=== PATIENT | female | born 1940 | race Two or more races ===

== ENCOUNTER 2016-12-26 13:55 | Inpatient (IN) | payer OTHER ==
[2016-12-26 14:01] VITALS: BMI 27.1
[2016-12-26 14:44] LABS: BASOPHILS # (AUTO) 0.1 X10^3/uL (0.0-0.1); BASOPHILS % (AUTO) 0.8 % (0.2-1.0); EOSINOPHILS # (AUTO) 0.1 x10^3/uL (0.0-0.2); EOSINOPHILS % (AUTO) 0.8 % (0.9-2.9); HEMATOCRIT 38.1 % (36.0-47.0); HEMOGLOBIN 12.7 g/dL (12.0-16.0); LYMPHOCYTES # (AUTO) 1.1 X10^3/uL (1.3-2.9); LYMPHOCYTES % (AUTO) 9.7 % (21.0-51.0); MEAN CORPUSCULAR HEMOGLOBIN 26.1 pg (27.0-34.0); MEAN CORPUSCULAR HGB CONC 33.3 g/dL (33.0-35.0); MEAN CORPUSCULAR VOLUME 78.6 fL (80.0-100.0); MEAN PLATELET VOLUME 7.6 fL (7.4-11.0); MONOCYTES # (AUTO) 0.5 x10^3/uL (0.3-0.8); MONOCYTES % (AUTO) 4.4 % (0.0-13.0); NEUTROPHILS # (AUTO) 9.6 x10^3/uL (2.2-4.8); NEUTROPHILS % (AUTO) 84.3 % (42.0-75.0); PLATELET COUNT 326 X10^3/uL (150.0-450.0); RED BLOOD COUNT 4.85 X10^6/uL (3.5-5.4); RED CELL DISTRIBUTION WIDTH 17.6 % (11.6-16.5); WHITE BLOOD COUNT 11.4 X10^3/uL (3.6-10.0)
--- NOTE | 2016-12-26 14:52 | RAD ---
HISTORY: Chest pain Study: Chest one view Comparison: November 07, 2015 Findings: The heart is enlarged. No congestive heart failure is noted. The aorta is mildly ectatic. The lungs are mildly hypoinflated. Diffuse chronic interstitial lung changes are present. There is a focal kristy eolar infiltrate in the right upper lobe suspicious for pneumonia. Follow up until clear is recommen ded. IMPRESSION: Right upper lobe infiltrate suggestive of pneumonia Diffuse interstitial lung changes, chronic Cardiomegaly without congestive heart failure Reported By:
[2016-12-26 15:03] LABS: ALANINE AMINOTRANSFERASE 22 Units/L (12-78); ALKALINE PHOSPHATASE 89 Units/L (46-116); ASPARTATE AMINO TRANSFERASE 14 Units/L (15-37); BLOOD UREA NITROGEN 13 mg/dL (7-18); CALCIUM 9.6 mg/dL (8.5-10.1); CARBON DIOXIDE 29.5 mmol/L (21-32); CHLORIDE 102 mmol/L (98-107); COR CA(FOR HYPOALB) 10.4 mg/dL (8.5-10.1); COR NA(FOR HYPERGLY) 139 mmol/L (136-145); CREATININE 0.83 mg/dL (0.55-1.02); GLUCOSE 111 mg/dL (65-99); SODIUM 139 mmol/L (136-145); TOTAL PROTEIN 7.2 g/dL (6.4-8.2); eGFR BLACK RACES > 60 (>60); eGFR NON BLACK RACES > 60 (>60)
--- NOTE | 2016-12-26 15:13 | DR.GENAD ---
HPI - PCP Primary Care Physician: none - Complaint/Symptoms Chief Complaint Doctors Comments: Patient admits to chest pain and coughing for a while; she denies fever or vomiting. Chief Complaint:: pt chest is hurting and back and her eyes are burning - Source History Provided: Patient - Mode of Arrival Mode of Arrival: Ambulatory - Timing Onset of Chief Complaint: 12/25/16 PMH - PMH Past Medical History: Yes Past Medical History: Hypertension Past Surgical History: Yes Surgical History: Bowel Resection, 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 - Family History History of Family Medical Conditions: No - Social History Does patient currently use any type of tobacco product: No Have you used tobacco products in the last 12 months: No Type of Tobacco Use: None Does any household member use tobacco: No Alcohol Use: None Do you use any recreational Drugs:: No Lives With: Family Lives Where: Home - infectious screening In the last 2 months have you had wt loss of >10#?: NO Have you had fever, night sweats or hemotysis?: No Have you traveled outside the country in the last 6 months?: No Isolation: Standard ROS - Review of Systems Constitutional: No Symptoms Reported Eyes: No Symptoms Reported ENTM: No Symptoms Reported Respiratoy: No Symptoms Reported Cardiovascular: No Symptoms Reported Gastrointestinal/Abdominal: No Symptoms Reported Genitourinary: No Symptoms Reported Neurological: No Symptoms Reported Musculoskeletal: No Symptoms Reported Integumentary: No Symptoms Reported Hematologic/Lymphatic: No Symptoms Reported Endocrine: No Symptoms Reported Psychiatric: No Symptoms Reported All Other Systems: Reviewed and Negative PE - Vital Signs Vitals: Temperature 98 F Pulse Rate 100 Respiratory Rate 18 Blood Pressure [Left Arm] 156/91 Blood Pressure [Right Arm] 171/82 Blood Pressure 140/87 O2 Sat by Pulse Oximetry 99 - General Limitations: No Limitations General Appearance: Alert, In No Apparent Distress, Appears Intoxicated - Head Head Exam: Normal Inspection, Atraumatic - Eyes Eye exam: Normal Appearance, PERRL, EOMI - ENT ENT Exam: Normal Exam External Ear Exam: Normal External Inspection TM/Canal Exam: Bilateral Normal Nose Exam: Normal Nose Exam Mouth Exam: Normal Inspection Throat Exam: Normal Inspection - Neck Neck Exam: Normal Inspection - Chest Chest Inspection: Normal Inspection - Respiratory Respiratory Exam: Normal Lung Sounds Bilat Respiratory Exam: Bilateral Clear to Auscultation - Cardiovascular Cardiovascular Exam: Regular Rate, Normal Rhythm - Abdominal Exam Abdominal Exam: Normal Inspection, Normal Bowel Sounds Abdominal Tenderness: negative: RUQ, RLQ, LUQ, LLQ, Epigastrium, Suprapubic, Diffuse, Mild, Moderate, Severe, Other - Extremities Extremities Exam: Normal Inspection - Back Back Exam: Normal Inspection, Full ROM - Neurologic Neurological Exam: Alert, Oriented X3, CN II-XII Intact - Psychiatric Psychiatric Exam: Normal Affect - Skin Skin Exam: Warm, Dry, Intact Course - Reevaluation 1st: Unchanged ROR - Labs Reviewed Result Diagrams: 12/26/16 14:32 12/26/16 14:32 Laboratory: WBC 11.4 X10^3/uL (3.6-10.0) H 12/26/16 14:32 RBC 4.85 X10^6/uL (3.5-5.4) 12/26/16 14:32 Hgb 12.7 g/dL (12.0-16.0) 12/26/16 14:32 Hct 38.1 % (36.0-47.0) 12/26/16 14:32 MCV 78.6 fL (80.0-100.0) L 12/26/16 14:32 MCH 26.1 pg (27.0-34.0) L 12/26/16 14:32 MCHC 33.3 g/dL (33.0-35.0) 12/26/16 14:32 RDW 17.6 % (11.6-16.5) H 12/26/16 14:32 Plt Count 326 X10^3/uL (150.0-450.0) 12/26/16 14:32 MPV 7.6 fL (7.4-11.0) 12/26/16 14:32 Neut % 84.3 % (42.0-75.0) H 12/26/16 14:32 Lymph % 9.7 % (21.0-51.0) L 12/26/16 14:32 [place] % 4.4 % (0.0-13.0) 12/26/16 14:32 Eos % 0.8 % (0.9-2.9) L 12/26/16 14:32 Baso % 0.8 % (0.2-1.0) 12/26/16 14:32 Neut # 9.6 x10^3/uL (2.2-4.8) H 12/26/16 14:32 Lymph # 1.1 X10^3/uL (1.3-2.9) L 12/26/16 14:32 [place] # 0.5 x10^3/uL (0.3-0.8) 12/26/16 14:32 Eos # 0.1 x10^3/uL (0.0-0.2) 12/26/16 14:32 Baso # 0.1 X10^3/uL (0.0-0.1) 12/26/16 14:32 Absolute Nucleated RBC 0.0 /100WBC 12/26/16 14:32 Sodium 139 mmol/L (136-145) 12/26/16 14:32 Corrected Sodium 139 mmol/L (136-145) 12/26/16 14:32 Potassium 3.2 mmol/L (3.5-5.1) L 12/26/16 14:32 Chloride 102 mmol/L (98-107) 12/26/16 14:32 Carbon Dioxide 29.5 mmol/L (21-32) 12/26/16 14:32 BUN 13 mg/dL (7-18) 12/26/16 14:32 Creatinine 0.83 mg/dL (0.55-1.02) 12/26/16 14:32 Est GFR (MDRD) Af Amer > 60 (>60) 12/26/16 14:32 Est GFR (MDRD) Non-Af > 60 (>60) 12/26/16 14:32 Glucose 111 mg/dL (65-99) H 12/26/16 14:32 Calcium 9.6 mg/dL (8.5-10.1) 12/26/16 14:32 Corrected Calcium 10.4 mg/dL (8.5-10.1) H 12/26/16 14:32 Total Bilirubin 0.50 mg/dL (0.2-1.0) 12/26/16 14:32 AST 14 Units/L (15-37) L 12/26/16 14:32 ALT 22 Units/L (12-78) 12/26/16 14:32 Alkaline Phosphatase 89 Units/L (46-116) 12/26/16 14:32 Total Protein 7.2 g/dL (6.4-8.2) 12/26/16 14:32 Albumin 3.0 g/dL (3.4-5.0) L 12/26/16 14:32 Globulin 4.2 g/dL (2.5-4.5) 12/26/16 14:32 Albumin/Globulin Ratio 0.7 Ratio (1.1-2.1) L 12/26/16 14:32 Specimen Type Clean catch urine 12/26/16 16:11 Urine Color Yellow (YELLOW) 12/26/16 16:11 Urine Appearance Hazy (CLEAR) 12/26/16 16:11 Urine pH 7.0 (5.0 - 8.0) 12/26/16 16:11 Ur Specific [place] 1.005 (1.000-1.030) 12/26/16 16:11 Urine Protein Negative (NEGATIVE) 12/26/16 16:11 Urine Glucose (UA) Negative (NEGATIVE) 12/26/16 16:11 Urine Ketones Negative (NEGATIVE) 12/26/16 16:11 Urine Occult Blood 1+ (NEGATIVE) 12/26/16 16:11 Urine Nitrite Negative (NEGATIVE) 12/26/16 16:11 Urine Bilirubin Negative (NEGATIVE) 12/26/16 16:11 Urine Urobilinogen Normal (NORMAL) 12/26/16 16:11 Ur Leukocyte Esterase 1+ (NEGATIVE) 12/26/16 16:11 Urine RBC 0-2 /HPF (NEGATIVE) 12/26/16 16:11 Urine WBC 0-2 /HPF (NEGATIVE) 12/26/16 16:11 Ur Squamous Epith Cells Few /HPF (NEGATIVE) 12/26/16 16:11 Urine Bacteria Trace /HPF (NEGATIVE) 12/26/16 16:11 Ur Culture Indicated? No/not indicated 12/26/16 16:11 - XRAY XRAY Interpreted by: Radiologist (The heart is enlarged. No congestive heart failure is noted. The aorta is mildly ectatic. The lungs are mildly hypoinflated. Diffuse chronic interstitial lung changes are present. There is a focal alveolar infiltrate in the right upper lobe suspicious for pneumonia. Impressions: RUL infiltrate suggestive of pneumonia. 2.Diffuse intersititial lung changes. chronic, 3.Cardiomegaly without congestive heart failure.) - Diagnosis Discharge Problem: Cardiomegaly, Special screening examination for respiratory tuberculosis - Discharge Plan Condition: Stable - Follow ups/Referrals Follow ups/Referrals: NFD,None [Primary Care Provider] - 3 days - Instructions
[2016-12-26] MEDS ORDERED: SALINE 3% 15 ML NEB TX ONE (15:30)
[2016-12-26] MEDS ORDERED: K-LYTE EFFERVESCENT PO ONE (15:33)
[2016-12-26] MEDS ORDERED: POTASSIUM CHLORIDE LIQ 20 MEQ UDC ONE (16:19)
[2016-12-26 16:20] LABS: BILIRUBIN,URINE NEGATIVE (NEGATIVE); BLOOD/HEMOGLOBIN,URINE 1+ (NEGATIVE); GLUCOSE, URINE NEGATIVE (NEGATIVE); KETONES,URINE NEGATIVE (NEGATIVE); LEUKOCYTE ESTERASE ,URINE 1+ (NEGATIVE); NITRITES,URINE NEGATIVE (NEGATIVE); PROTEIN,URINE NEGATIVE (NEGATIVE); UROBILINOGEN,URINE NORMAL (NORMAL)
[2016-12-26] MEDS ORDERED: K-DUR TAB 20 MEQ PO ONE (16:21)
[2016-12-26 16:38] LABS: APPEARANCE,URINE HAZY (CLEAR); BACTERIA,URINE TRACE /HPF (NEGATIVE); COLOR,URINE YELLOW (YELLOW); RBC,URINE 0-2 /HPF (NEGATIVE); SQUAMOUS EPITHELIAL CELL,UR FEW /HPF (NEGATIVE)
[2016-12-26] MEDS ORDERED: SALINE 3% 15 ML NEB TX NEB ONE (16:39)
[2016-12-26] MEDS ORDERED: ZOFRAN INJ 4 MG VIAL IVP PRN (18:18)
[2016-12-26] MEDS ORDERED: CANDIDA ALBICANS SKIN TEST ID ONE (19:00)
[2016-12-26] MEDS ORDERED: NS 1/2 1000 ML IV 1,000 ML IV ONE (20:21)
[2016-12-26] MEDS: NS 1/2 1000 ML IV 1,000 ML IV SCH (20:40)
[2016-12-26] MEDS: ROBITUSSIN DM PO SCH (20:40)
[2016-12-26] MEDS: VIBRAMYCIN 100 MG in NS 100 ML IV + SPIKE MINIBAG* 100 ML IV SCH (20:41)
[2016-12-26] MEDS: DUONEB 0.5 MG/3 MG NEB SCH (20:45)
[2016-12-27] MEDS: DUONEB 0.5 MG/3 MG NEB SCH ×5 (01:24→20:31)
[2016-12-27 04:42] LABS: BASOPHILS # (AUTO) 0.1 X10^3/uL (0.0-0.1); BASOPHILS % (AUTO) 0.7 % (0.2-1.0); EOSINOPHILS # (AUTO) 0.1 x10^3/uL (0.0-0.2); EOSINOPHILS % (AUTO) 0.9 % (0.9-2.9); HEMATOCRIT 33.4 % (36.0-47.0); HEMOGLOBIN 11.2 g/dL (12.0-16.0); LYMPHOCYTES # (AUTO) 1.4 X10^3/uL (1.3-2.9); LYMPHOCYTES % (AUTO) 15.1 % (21.0-51.0); MEAN CORPUSCULAR HEMOGLOBIN 26.3 pg (27.0-34.0); MEAN CORPUSCULAR HGB CONC 33.5 g/dL (33.0-35.0); MEAN CORPUSCULAR VOLUME 78.6 fL (80.0-100.0); MEAN PLATELET VOLUME 7.6 fL (7.4-11.0); MONOCYTES # (AUTO) 0.6 x10^3/uL (0.3-0.8); MONOCYTES % (AUTO) 6.5 % (0.0-13.0); NEUTROPHILS % (AUTO) 76.8 % (42.0-75.0); PLATELET COUNT 346 X10^3/uL (150.0-450.0); RED BLOOD COUNT 4.25 X10^6/uL (3.5-5.4); RED CELL DISTRIBUTION WIDTH 17.5 % (11.6-16.5); WHITE BLOOD COUNT 9.1 X10^3/uL (3.6-10.0)
[2016-12-27 04:53] LABS: ALANINE AMINOTRANSFERASE 18 Units/L (12-78); ALBUMIN 2.5 g/dL (3.4-5.0); ALKALINE PHOSPHATASE 74 Units/L (46-116); ASPARTATE AMINO TRANSFERASE 12 Units/L (15-37); BLOOD UREA NITROGEN 10 mg/dL (7-18); CALCIUM 9.2 mg/dL (8.5-10.1); CARBON DIOXIDE 29.1 mmol/L (21-32); CHLORIDE 104 mmol/L (98-107); COR CA(FOR HYPOALB) 10.4 mg/dL (8.5-10.1); CREATININE 0.86 mg/dL (0.55-1.02); GLUCOSE 107 mg/dL (65-99); SODIUM 139 mmol/L (136-145); TOTAL PROTEIN 6.3 g/dL (6.4-8.2); eGFR BLACK RACES > 60 (>60); eGFR NON BLACK RACES > 60 (>60)
[2016-12-27] MEDS ORDERED: K-LYTE EFFERVESCENT PO PRN (05:12)
[2016-12-27] MEDS ORDERED: K-DUR TAB 20 MEQ PO PRN (05:12)
[2016-12-27] MEDS ORDERED: POTASSIUM CHLORIDE LIQ 20 MEQ UDC PO PRN (05:12)
[2016-12-27] MEDS ORDERED: K-RIDER 10 MEQ/NS 100 ML 10 MEQ/100 ML BAG IV PRN (05:12)
--- NOTE | 2016-12-27 06:31 | RAD ---
HISTORY: Shortness of breath Study: Chest two-view Comparison: December 26, 2016 Findings: The patient is rotated slightly to the left. The heart is enlarged. No congestive heart failure is n oted. The aorta is calcified and mildly ectatic. Diffuse interstitial lung disease is again identifi ed not significantly changed from the prior examination. The previously noted right apical alveolar infiltrate has resolved. No pleural effusions are identified. The bony thorax is unremarkable. IMPRESSION: Cardiomegaly without congestive heart failure Diffuse chronic interstitial lung disease Right upper lobe now free of alveolar infiltrates. Reported By:
[2016-12-27] MEDS: ROBITUSSIN DM PO SCH ×4 (08:53→21:10)
[2016-12-27] MEDS: VIBRAMYCIN 100 MG in NS 100 ML IV + SPIKE MINIBAG* 100 ML IV SCH ×2 (08:53→21:10)
[2016-12-27] MEDS: ROCEPHIN VIAL 1 GM 1 GM in NS 50 ML IV + SPIKE MINIBAG* 50 ML IV SCH (08:54)
[2016-12-27] MEDS ORDERED: FOLIC ACID 800 MCG PO SCH (09:30)
[2016-12-27] MEDS: FOLIC ACID TAB 1 MG PO SCH (09:48)
[2016-12-27] MEDS: NS 1/2 1000 ML IV 1,000 ML IV SCH ×2 (09:48→11:40)
[2016-12-27] MEDS: ZyrTEC TAB 10 MG PO SCH (09:48)
[2016-12-27] MEDS: HYZAAR 50/12.5 MG PO SCH (09:48)
[2016-12-27] MEDS: PREDNISONE TAB 5 MG PO SCH ×3 (10:09→21:10)
[2016-12-27] MEDS: LOVENOX INJ 30 MG SYR SC SCH ×2 (10:09→21:11)
[2016-12-27] MEDS ORDERED: NS 1/2 1000 ML IV 1,000 ML IV ONE (11:26)
--- NOTE | 2016-12-27 11:38 | VAS ---
HISTORY: Extremity pain, swelling, and edema Study: Bilateral lower extremity Doppler venous ultrasound. TECHNIQUE: Multiple carlos scale and color flow Doppler images of the deep venous system were obtaine d of the right and left lower extremity. FINDINGS: The deep venous system of the right and left lower extremities were evaluated from the [place] rose[place] of the common femoral veins through the popliteal veins, bilaterally. Normal color flow and aug mentation can be observed. In addition, normal compression is seen throughout the deep venous syste m. No Scott's cyst is seen. IMPRESSION: 1. Negative examination for DVT. Reported By:
[2016-12-27] MEDS: NORCO 5/325 MG TAB PO PRN ×2 (13:42→21:11)
--- NOTE | 2016-12-27 15:00 | DR.H&P ---
H&P - History & Physical for Day of: H&P Date: 12/26/16 - Chief Complaint Chief Complaint: chest pain and cough - Allergies Allergies/Adverse Reactions: Allergies Allergy/AdvReac Type Severity Reaction Status Date / Time No Known Drug Allergy Allergy Verified 11/07/15 17:34 - History of Present Illness History of Present Illness: Patient presented to the emergency room with complaints of chest pain and coughing. Patient has a history of hypertension. Chest XRay on arrival showed right upper lobe infiltrate suggestive of pneuimonia, diffuse interstitial lung changes that are chronic, and cardiomegaly without CHF. Vital signs 98.0, 109, 18, 98%, 140/87. Labs within normal limits with the exception of WBC 11.4, MCV, MCH 26.1, RDW 17.6, Neut% 84.3, Lymph 9.7, Eos% 0.8, Neut# 9.6, Lymph# 1.1, Potassium 3.2, Glucose 111, AST 14, Albumin 3.0, Albumin/Globulin 0.7. Patient admitted with diagnosis of community acquired pneumonia and started on NS@75ml/hr, Ceftriaxone 1gm IV Daily , Doxycycline 100mg IV Q12hr. - Past Medical History Past Medical History: Hypertension - Past Surgical History Surgical History: Bowel Resection, 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 - Social History Does patient currently use any type of tobacco product: No Have you used tobacco products in the last 12 months: No Type of Tobacco Use: None Does any household member use tobacco: No Alcohol Use: None Drug Use: None - Medications Home Medications: Cetirizine HCl [Zyrtec Allergy] 10 mg PO HS 12/26/16 [History Confirmed 12/26/16 ] Folic Acid 800 mcg PO DAILY 12/26/16 [History Confirmed 12/26/16] Losartan Potassium & Hydrochlo [Losartan Potassium/Hydroc 100-25 mg] 1 tab PO QAM 12/26/16 [History Confirmed 12/26/16] Prednisone [Prednisone Tab 5 mg] 5 mg PO TID 12/26/16 [History Confirmed ] - Review of Systems Constitutional: Weakness Eyes: No Symptoms Reported ENT: No Symptoms Reported Respiratory: Cough Cardiovascular: Chest Pain Gastrointestinal: No Symptoms Reported Genitourinary: No Symptoms Reported Musculoskeletal: No Symptoms Reported Skin: No Symptoms Reported Neurological: No Symptoms Reported - Physical Exam Vital Signs: Vital signs 98.0, 109, 18, 98%, 140/87 Oriented: Normal Eyes: Normal Ear: Normal Nose: Normal Throat: Normal Respiratory: Clear Throughout Cardiovascular: Normal : Normal Auscultation: Bowel Sounds: Normal Palpation: Normal Tenderness: Normal Skin: Normal Musculoskeletal: Normal Psychiatric: Normal Mood Description: Calm, Appropriate Affect: Normal Speech Pattern: Clear, Appropriate - Assessment/Plan (1) Chest pain Qualifiers: Chest pain type: C Ischemic chest pain type: I Status: Acute Plan: continue to monitor (2) Community acquired pneumonia Status: Acute Plan: ceftriaxone 1gm IV Daily, Doxycycline 100mg IV Q12hr
--- NOTE | 2016-12-27 15:01 | PCM.PROG ---
Progress Note - Progress Note for Day of Date: 12/27/16 - Subjective Subjective: Patient states that she is feeling better however, she complains of left leg pain. Chest xray this am shows Cardiomegaly without CHF, diffuse chronic interstitial lung disease, right upper lobe infiltrate now free of alveolar infiltrates. Vital signs 98.6, 87, 22, 97% 140/75. Labs within normal limits with the exception of Hgb 11.2, Hct 33.4, MCV 78.6, MCH 26.3, RDW 17.5, Neut% 76.8, Lymph% 15.1, Neut# 7.0, Potassium 3.3, glucose 107, AST 12, Total Protein 6.3, Albumin 2.5, Albumin/Globulin Ratio 0.7. We are going to order a venous Doppler to rule out DVT and start on lovenox 30mg SQ Q12hr. We will repeat labs in the am. - Past Medical Family Social History Past Med/Fam/Surg Hx: No changes since H&P Allergies: Allergies No Known Drug Allergy Allergy (Verified 11/07/15 17:34) - Review of Systems ROS: No change since H&P - Vital Signs and I&O's Vital Signs: Temperature 99.1 F Pulse Rate [Right Brachial] 91 Pulse Rate 86 Respiratory Rate 20 Blood Pressure [Left Arm] 151/70 Blood Pressure [Right Arm] 140/75 O2 Sat by Pulse Oximetry 96 Intake and Output: Intake & Output 12/25/16 12/26/16 12/27/16 12/28/16 11:59 11:59 11:59 11:59 Intake Total 898 Balance 898 - Physical Exam Oriented: Normal Eyes: Normal Ear: Normal Nose: Normal Throat: Normal Respiratory: Normal Cardiovascular: Normal : Normal Auscultation: Bowel Sounds: Normal Palpation: Normal Tenderness: Normal Skin: Normal Musculoskeletal: Normal Psychiatric: Normal Mood Description: Calm, Appropriate Affect: Normal Speech Pattern: Clear, Appropriate - Laboratory and Diagnostics Result Diagrams: 12/27/16 03:25 12/27/16 07:45 Labs: Laboratory WBC 9.1 X10^3/uL (3.6-10.0) 12/27/16 03:25 RBC 4.25 X10^6/uL (3.5-5.4) 12/27/16 03:25 Hgb 11.2 g/dL (12.0-16.0) L 12/27/16 03:25 Hct 33.4 % (36.0-47.0) L 12/27/16 03:25 MCV 78.6 fL (80.0-100.0) L 12/27/16 03:25 MCH 26.3 pg (27.0-34.0) L 12/27/16 03:25 MCHC 33.5 g/dL (33.0-35.0) 12/27/16 03:25 RDW 17.5 % (11.6-16.5) H 12/27/16 03:25 Plt Count 346 X10^3/uL (150.0-450.0) 12/27/16 03:25 MPV 7.6 fL (7.4-11.0) 12/27/16 03:25 Neut % 76.8 % (42.0-75.0) H 12/27/16 03:25 Lymph % 15.1 % (21.0-51.0) L 12/27/16 03:25 [place] % 6.5 % (0.0-13.0) 12/27/16 03:25 Eos % 0.9 % (0.9-2.9) 12/27/16 03:25 Baso % 0.7 % (0.2-1.0) 12/27/16 03:25 Neut # 7.0 x10^3/uL (2.2-4.8) H 12/27/16 03:25 Lymph # 1.4 X10^3/uL (1.3-2.9) 12/27/16 03:25 [place] # 0.6 x10^3/uL (0.3-0.8) 12/27/16 03:25 Eos # 0.1 x10^3/uL (0.0-0.2) 12/27/16 03:25 Baso # 0.1 X10^3/uL (0.0-0.1) 12/27/16 03:25 Absolute Nucleated RBC 0.0 /100WBC 12/27/16 03:25 Sodium 139 mmol/L (136-145) 12/27/16 03:25 Corrected Sodium TNP 12/27/16 03:25 Potassium 4.3 mmol/L (3.5-5.1) 12/27/16 07:45 Chloride 104 mmol/L (98-107) 12/27/16 03:25 Carbon Dioxide 29.1 mmol/L (21-32) 12/27/16 03:25 BUN 10 mg/dL (7-18) 12/27/16 03:25 Creatinine 0.86 mg/dL (0.55-1.02) 12/27/16 03:25 Est GFR (MDRD) Af Amer > 60 (>60) 12/27/16 03:25 Est GFR (MDRD) Non-Af > 60 (>60) 12/27/16 03:25 Glucose 107 mg/dL (65-99) H 12/27/16 03:25 Calcium 9.2 mg/dL (8.5-10.1) 12/27/16 03:25 Corrected Calcium 10.4 mg/dL (8.5-10.1) H 12/27/16 03:25 Total Bilirubin 0.70 mg/dL (0.2-1.0) 12/27/16 03:25 AST 12 Units/L (15-37) L 12/27/16 03:25 ALT 18 Units/L (12-78) 12/27/16 03:25 Alkaline Phosphatase 74 Units/L (46-116) 12/27/16 03:25 Total Protein 6.3 g/dL (6.4-8.2) L 12/27/16 03:25 Albumin 2.5 g/dL (3.4-5.0) L 12/27/16 03:25 Globulin 3.8 g/dL (2.5-4.5) 12/27/16 03:25 Albumin/Globulin Ratio 0.7 Ratio (1.1-2.1) L 12/27/16 03:25 Specimen Type Clean catch urine 12/26/16 16:11 Urine Color Yellow (YELLOW) 12/26/16 16:11 Urine Appearance Hazy (CLEAR) 12/26/16 16:11 Urine pH 7.0 (5.0 - 8.0) 12/26/16 16:11 Ur Specific [place] 1.005 (1.000-1.030) 12/26/16 16:11 Urine Protein Negative (NEGATIVE) 12/26/16 16:11 Urine Glucose (UA) Negative (NEGATIVE) 12/26/16 16:11 Urine Ketones Negative (NEGATIVE) 12/26/16 16:11 Urine Occult Blood 1+ (NEGATIVE) 12/26/16 16:11 Urine Nitrite Negative (NEGATIVE) 12/26/16 16:11 Urine Bilirubin Negative (NEGATIVE) 12/26/16 16:11 Urine Urobilinogen Normal (NORMAL) 12/26/16 16:11 Ur Leukocyte Esterase 1+ (NEGATIVE) 12/26/16 16:11 Urine RBC 0-2 /HPF (NEGATIVE) 12/26/16 16:11 Urine WBC 0-2 /HPF (NEGATIVE) 12/26/16 16:11 Ur Squamous Epith Cells Few /HPF (NEGATIVE) 12/26/16 16:11 Urine Bacteria Trace /HPF (NEGATIVE) 12/26/16 16:11 Ur Culture Indicated? No/not indicated 12/26/16 16:11 Radiology Reviewed: Yes - Plan (1) Chest pain Status: Acute Qualifiers: Chest pain type: C Ischemic chest pain type: I Plan: continue to monitor (2) Community acquired pneumonia Status: Acute Plan: ceftriaxone 1gm IV Daily, Doxycycline 100mg IV Q12hr (3) Leg pain, left Status: Acute Plan: Venous doppler r/o DVT Lovenox 30mg SQ q12hr
[2016-12-27] MEDS ORDERED: PATIENT'S HOME MEDICATION (Cetirizine Hcl [Zyrtec Allergy] 10 MG) PO SCH (21:00)
[2016-12-28] MEDS: DUONEB 0.5 MG/3 MG NEB SCH ×3 (01:04→08:49)
[2016-12-28] MEDS: PREDNISONE TAB 5 MG PO SCH (05:51)
[2016-12-28 06:15] LABS: BASOPHILS % (AUTO) 0.4 % (0.2-1.0); EOSINOPHILS % (AUTO) 0.2 % (0.9-2.9); HEMATOCRIT 32.5 % (36.0-47.0); HEMOGLOBIN 10.7 g/dL (12.0-16.0); LYMPHOCYTES # (AUTO) 0.5 X10^3/uL (1.3-2.9); LYMPHOCYTES % (AUTO) 6.1 % (21.0-51.0); MEAN CORPUSCULAR HEMOGLOBIN 26.2 pg (27.0-34.0); MEAN CORPUSCULAR VOLUME 79.5 fL (80.0-100.0); MEAN PLATELET VOLUME 7.8 fL (7.4-11.0); MONOCYTES # (AUTO) 0.3 x10^3/uL (0.3-0.8); MONOCYTES % (AUTO) 3.7 % (0.0-13.0); NEUTROPHILS # (AUTO) 7.7 x10^3/uL (2.2-4.8); NEUTROPHILS % (AUTO) 89.6 % (42.0-75.0); PLATELET COUNT 345 X10^3/uL (150.0-450.0); RED CELL DISTRIBUTION WIDTH 17.3 % (11.6-16.5); WHITE BLOOD COUNT 8.5 X10^3/uL (3.6-10.0)
--- NOTE | 2016-12-28 06:27 | RAD ---
HISTORY: Shortness of breath Study: Chest one view Comparison: December 27, 2016 Findings: The heart is enlarged. No congestive heart failure is noted. The aorta is calcified and mildly ectat ic. Diffuse interstitial lung disease is identified not significantly changed from the prior examina tion. No definite alveolar infiltrates are identified. There is subsegmental atelectasis abutting th e minor fissure in the right upper lobe. No pleural effusions are identified. The bony thorax is unr emarkable. IMPRESSION: Cardiomegaly without congestive heart failure Diffuse interstitial lung changes, stable. Subsegmental atelectasis abutting the minor fissure in the right upper lobe Reported By:
[2016-12-28 06:41] LABS: ALANINE AMINOTRANSFERASE 16 Units/L (12-78); ALBUMIN 2.3 g/dL (3.4-5.0); ALKALINE PHOSPHATASE 69 Units/L (46-116); ASPARTATE AMINO TRANSFERASE 12 Units/L (15-37); BLOOD UREA NITROGEN 11 mg/dL (7-18); CALCIUM 8.9 mg/dL (8.5-10.1); CARBON DIOXIDE 24.9 mmol/L (21-32); CHLORIDE 106 mmol/L (98-107); COR CA(FOR HYPOALB) 10.3 mg/dL (8.5-10.1); COR NA(FOR HYPERGLY) 141 mmol/L (136-145); CREATININE 0.64 mg/dL (0.55-1.02); GLUCOSE 128 mg/dL (65-99); SODIUM 140 mmol/L (136-145); eGFR BLACK RACES > 60 (>60); eGFR NON BLACK RACES > 60 (>60)
[2016-12-28 06:50] LABS: ERYTHROCYTE SEDIMENTATION RATE 48 MM/HOUR (0-20)
[2016-12-28] MEDS: NS 1/2 1000 ML IV 1,000 ML IV SCH ×2 (07:19→08:30)
[2016-12-28] MEDS ORDERED: NS 1/2 1000 ML IV 1,000 ML IV ONE (08:14)
[2016-12-28] MEDS: ZyrTEC TAB 10 MG PO SCH (08:30)
[2016-12-28] MEDS: ROBITUSSIN DM PO SCH (08:30)
[2016-12-28] MEDS: FOLIC ACID TAB 1 MG PO SCH (08:30)
[2016-12-28] MEDS: LOVENOX INJ 30 MG SYR SC SCH (08:30)
[2016-12-28] MEDS: VIBRAMYCIN 100 MG in NS 100 ML IV + SPIKE MINIBAG* 100 ML IV SCH (08:30)
[2016-12-28] MEDS: ROCEPHIN VIAL 1 GM 1 GM in NS 50 ML IV + SPIKE MINIBAG* 50 ML IV SCH (08:30)
[2016-12-28] MEDS: HYZAAR 50/12.5 MG PO SCH (08:30)
[2016-12-28] MEDS ORDERED: HYDROCHLO PO SCH (09:00)
[2016-12-28] MEDS ORDERED: [UNRECOGNIZED DRUG - OTHER] PO SCH (09:00)
[2016-12-28] MEDS ORDERED: LOSARTAN POTASSIUM PO SCH (09:00)
[2016-12-28 09:23] VITALS: BP 131/69
== END 2016-12-28 09:55 | disposition home or self-care (01) | DRG 195 ==
LOC: ER 14:16 → MED/SURG 18:08
PROVIDERS: ADMIT Obstetrics & Gynecology Obstetrics; ATTEND Internal Medicine
DX: J18.8 Other pneumonia, unspecified organism (principal); R07.89 Other chest pain; I10 Essential (primary) hypertension; I51.7 Cardiomegaly; M79.605 Pain in left leg
CPT/HCPCS: 36415; 71010; 71020; 80053; 81001; 84132; 85025; 85652; 86140; 87040; 93005; 93970; 94640; 96365; 99284; A4222; J0696; J1650; J3490; J7506; J7620

== ENCOUNTER → 2017-02-06 | Outpatient (CLI) | payer OTHER ==
[2017-02-06 10:54] LABS: ALANINE AMINOTRANSFERASE 19 Units/L (12-78); ALBUMIN 3.1 g/dL (3.4-5.0); ALKALINE PHOSPHATASE 82 Units/L (46-116); ASPARTATE AMINO TRANSFERASE 13 Units/L (15-37); BLOOD UREA NITROGEN 16 mg/dL (7-18); CALCIUM 9.6 mg/dL (8.5-10.1); CARBON DIOXIDE 30.3 mmol/L (21-32); CHLORIDE 102 mmol/L (98-107); COR CA(FOR HYPOALB) 10.3 mg/dL (8.5-10.1); CREATININE 0.87 mg/dL (0.55-1.02); GLUCOSE 94 mg/dL (65-99); SODIUM 140 mmol/L (136-145); TOTAL PROTEIN 7.4 g/dL (6.4-8.2); eGFR BLACK RACES > 60 (>60); eGFR NON BLACK RACES > 60 (>60)
== END ==
LOC: LAB 09:57
PROVIDERS: ATTEND Internal Medicine Rheumatology
DX: M06.89 Other specified rheumatoid arthritis, multiple sites (principal); M70.51 Other bursitis of knee, right knee; M17.12 Unilateral primary osteoarthritis, left knee; Z79.899 Other long term (current) drug therapy
CPT/HCPCS: 36415; 80053; 85652; 86140

== ENCOUNTER 2017-02-27 09:23 | Inpatient (IN) | payer OTHER ==
[2017-02-27 09:30] VITALS: BMI 26.5
--- NOTE | 2017-02-27 09:39 | DR.GENAD ---
HPI - PCP Primary Care Physician: NFD - Complaint/Symptoms Chief Complaint:: PT C/O CHEST PAIN AND BACK PAIN. PT STATES SHE STARTED WITH C/ C/C SATURDAY AND SHE IS JUST GETTING WORSE - Nurses notes reviewed Nurses Notes Review: Yes - Source History Provided: Patient - Mode of Arrival Mode of Arrival: Ambulatory - Timing Onset of Chief Complaint: 02/22/17 Came on: Suddenly - Duration Duration: Constant Duration: Days - Severity Severity: Moderate PMH - PMH Past Medical History: Yes Past Medical History: Hypertension Past Surgical History: Yes Surgical History: Bowel Resection, 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 - Family History History of Family Medical Conditions: No - Social History Type of Tobacco Use: None Does any household member use tobacco: No Alcohol Use: None Do you use any recreational Drugs:: No Lives With: Alone Lives Where: Home - infectious screening In the last 2 months have you had wt loss of >10#?: NO Have you had fever, night sweats or hemotysis?: No Have you traveled outside the country in the last 6 months?: No Isolation: Standard ROS - Review of Systems Constitutional: No Symptoms Reported, Weakness, Fatigue. negative: Chills, Diaphoresis, Fever Eyes: No Symptoms Reported. negative: Eye Pain, Discharge ENTM: Nose Discharge, Nose Congestion. negative: Ear Pain, Throat Pain (POST NASAL DRIP PRESENT.) Respiratoy: Productive Cough, Short of Breath, Wheezing, Hemoptysis Cardiovascular: Chest Pain Gastrointestinal/Abdominal: No Symptoms Reported Genitourinary: No Symptoms Reported Neurological: Headache, Weakness Musculoskeletal: Muscle Pain Integumentary: No Symptoms Reported Hematologic/Lymphatic: No Symptoms Reported Endocrine: No Symptoms Reported All Other Systems: Reviewed and Negative PE - Vital Signs Vitals: Temperature 98.9 F Pulse Rate 88 Respiratory Rate 20 Blood Pressure [Left Arm] 151/70 Blood Pressure [Right Arm] 131/69 Blood Pressure 155/85 O2 Sat by Pulse Oximetry 95 - General Limitations: No Limitations General Appearance: Alert - Head Head Exam: Normal Inspection - Eyes Eye exam: Normal Appearance - ENT ENT Exam: Normal External Ear Exam External Ear Exam: Normal External Inspection TM/Canal Exam: Bilateral Bulging Nose Exam: Normal Nose Exam Mouth Exam: Normal Inspection Throat Exam: Normal Inspection - Neck Neck Exam: Trachea Midline - Chest Chest Inspection: Symmetric Chest Wall Rise - Respiratory Respiratory Exam: Chest Wall Tenderness, Respiratory Distress Respiratory Exam: Bilateral Rhonchi, Upper Rhonchi, Lower Rhonchi - Cardiovascular Cardiovascular Exam: Regular Rate, Normal Rhythm, Normal Heart Sounds - Abdominal Exam Abdominal Exam: Normal Bowel Sounds, Soft. negative: Tenderness - Extremities Extremities Exam: Normal Inspection - Back Back Exam: Normal Inspection - Neurologic Neurological Exam: Alert, Oriented X3 - Skin Skin Exam: Normal Color MDM - Differential Diagnosis Differential Diagnosis: CHEST PAIN, PNEUMONIA, CHF, ND Course - Treatment Treatment: SEE ORDERS. - Education/Counseling Education/Counseling: Patient, Education Educated On: Diagnosis ROR - Labs Reviewed Result Diagrams: 03/04/17 03:15 03/04/17 03:15 Laboratory: 02/27/17 10:48 Sputum - Expectorated Sputum - Final WBC 8.9 X10^3/uL (3.6-10.0) 02/27/17 10:22 RBC 4.78 X10^6/uL (3.5-5.4) 02/27/17 10:22 Hgb 12.5 g/dL (12.0-16.0) 02/27/17 10:22 Hct 37.4 % (36.0-47.0) 02/27/17 10:22 MCV 78.3 fL (80.0-100.0) L 02/27/17 10:22 MCH 26.2 pg (27.0-34.0) L 02/27/17 10:22 MCHC 33.4 g/dL (33.0-35.0) 02/27/17 10:22 RDW 15.9 % (11.6-16.5) 02/27/17 10:22 Plt Count 374 X10^3/uL (150.0-450.0) 02/27/17 10:22 MPV 7.6 fL (7.4-11.0) 02/27/17 10:22 Neut % 62.0 % (42.0-75.0) 02/27/17 10:22 Lymph % 25.9 % (21.0-51.0) 02/27/17 10:22 [place] % 9.8 % (0.0-13.0) 02/27/17 10:22 Eos % 1.1 % (0.9-2.9) 02/27/17 10:22 Baso % 1.2 % (0.2-1.0) H 02/27/17 10:22 Neut # 5.5 x10^3/uL (2.2-4.8) H 02/27/17 10:22 Lymph # 2.3 X10^3/uL (1.3-2.9) 02/27/17 10:22 [place] # 0.9 x10^3/uL (0.3-0.8) H 02/27/17 10:22 Eos # 0.1 x10^3/uL (0.0-0.2) 02/27/17 10:22 Baso # 0.1 X10^3/uL (0.0-0.1) 02/27/17 10:22 Absolute Nucleated RBC 0.0 /100WBC 02/27/17 10:22 Sodium 139 mmol/L (136-145) 02/27/17 10:22 Corrected Sodium TNP 02/27/17 10:22 Potassium 2.6 mmol/L (3.5-5.1) L* 02/27/17 10:22 Chloride 102 mmol/L (98-107) 02/27/17 10:22 Carbon Dioxide 29.6 mmol/L (21-32) 02/27/17 10:22 BUN 15 mg/dL (7-18) 02/27/17 10:22 Creatinine 0.77 mg/dL (0.55-1.02) 02/27/17 10:22 Est GFR (MDRD) Af Amer > 60 (>60) 02/27/17 10:22 Est GFR (MDRD) Non-Af > 60 (>60) 02/27/17 10:22 Glucose 92 mg/dL (65-99) 02/27/17 10:22 Calcium 9.1 mg/dL (8.5-10.1) 02/27/17 10:22 Corrected Calcium 10.0 mg/dL (8.5-10.1) 02/27/17 10:22 Total Bilirubin 0.40 mg/dL (0.2-1.0) 02/27/17 10:22 AST 12 Units/L (15-37) L 02/27/17 10:22 ALT 17 Units/L (12-78) 02/27/17 10:22 Alkaline Phosphatase 78 Units/L (46-116) 02/27/17 10:22 Creatine Kinase 71 Units/L (26-192) 02/27/17 10:22 CK-MB (CK-2) < 1.0 ng/mL (0-4.0) 02/27/17 10:22 CK/CKMB % Calc 1.4 % (<4) 02/27/17 10:22 Troponin I 0.02 ng/mL (0-1.5) 02/27/17 10:22 Total Protein 7.4 g/dL (6.4-8.2) 02/27/17 10:22 Albumin 2.9 g/dL (3.4-5.0) L 02/27/17 10:22 Globulin 4.5 g/dL (2.5-4.5) 02/27/17 10:22 Albumin/Globulin Ratio 0.6 Ratio (1.1-2.1) L 02/27/17 10:22 - Diagnosis Discharge Problem: Pneumonia of both lower lobes Qualifiers: Pneumonia type: due to unspecified organism Qualified Code(s): J18.9 - Pneumonia, unspecified organism Chest pain Qualifiers: Chest pain type: unspecified Qualified Code(s): R07.9 - Chest pain, unspecified - Discharge Plan Disposition: ADMITTED INPATIENT Condition: Stable - Follow ups/Referrals - Instructions
--- NOTE | 2017-02-27 10:22 | RAD ---
HISTORY: Pain Study: portable chest Comparison: 12/28/2016 Findings: The heart is mildly enlarged but unchanged. The pulmonary vessels are slightly prominent centrally . There are hazy bibasilar and linear densities which are more prominent . No obvious effusion is see n. The bones are intact. IMPRESSION: Stable mild cardiomegaly with mild prominence of the central pulmonary vessels which is less promine nt and may represent pulmonary artery hypertension or venous congestion . Hypoinflation with questionable crowded vascular markings or possible early bibasilar atelectasis or infiltrates. Reported By:
[2017-02-27 10:40] LABS: BASOPHILS # (AUTO) 0.1 X10^3/uL (0.0-0.1); BASOPHILS % (AUTO) 1.2 % (0.2-1.0); EOSINOPHILS # (AUTO) 0.1 x10^3/uL (0.0-0.2); EOSINOPHILS % (AUTO) 1.1 % (0.9-2.9); HEMATOCRIT 37.4 % (36.0-47.0); HEMOGLOBIN 12.5 g/dL (12.0-16.0); LYMPHOCYTES # (AUTO) 2.3 X10^3/uL (1.3-2.9); LYMPHOCYTES % (AUTO) 25.9 % (21.0-51.0); MEAN CORPUSCULAR HEMOGLOBIN 26.2 pg (27.0-34.0); MEAN CORPUSCULAR HGB CONC 33.4 g/dL (33.0-35.0); MEAN CORPUSCULAR VOLUME 78.3 fL (80.0-100.0); MEAN PLATELET VOLUME 7.6 fL (7.4-11.0); MONOCYTES # (AUTO) 0.9 x10^3/uL (0.3-0.8); MONOCYTES % (AUTO) 9.8 % (0.0-13.0); NEUTROPHILS # (AUTO) 5.5 x10^3/uL (2.2-4.8); PLATELET COUNT 374 X10^3/uL (150.0-450.0); RED BLOOD COUNT 4.78 X10^6/uL (3.5-5.4); RED CELL DISTRIBUTION WIDTH 15.9 % (11.6-16.5); WHITE BLOOD COUNT 8.9 X10^3/uL (3.6-10.0)
[2017-02-27 11:03] LABS: ALANINE AMINOTRANSFERASE 17 Units/L (12-78); ALBUMIN 2.9 g/dL (3.4-5.0); ALKALINE PHOSPHATASE 78 Units/L (46-116); ASPARTATE AMINO TRANSFERASE 12 Units/L (15-37); BLOOD UREA NITROGEN 15 mg/dL (7-18); CALCIUM 9.1 mg/dL (8.5-10.1); CARBON DIOXIDE 29.6 mmol/L (21-32); CHLORIDE 102 mmol/L (98-107); CKMB % 1.4 % (<4); CREATINE KINASE 71 Units/L (26-192); CREATINE KINASE MB < 1.0 ng/mL (0-4.0); CREATININE 0.77 mg/dL (0.55-1.02); GLUCOSE 92 mg/dL (65-99); SODIUM 139 mmol/L (136-145); TOTAL PROTEIN 7.4 g/dL (6.4-8.2); TROPONIN I 0.02 ng/mL (0-1.5); eGFR BLACK RACES > 60 (>60); eGFR NON BLACK RACES > 60 (>60)
[2017-02-27] MEDS ORDERED: POTASSIUM CHLORIDE LIQ 20 MEQ UDC PO ONE (12:39)
[2017-02-27] MEDS ORDERED: POTASSIUM CHLORIDE LIQ 20 MEQ UDC ONE (12:45)
[2017-02-27] MEDS ORDERED: ROCEPHIN VIAL 1 GM 1 GM in NS 50 ML IV + SPIKE MINIBAG* 50 ML IV ONE (12:58)
[2017-02-27] MEDS ORDERED: TUSSIONEX PENNKINETIC SUSP PO PRN (13:34)
[2017-02-27] MEDS ORDERED: NS 1/2 1000 ML IV 1,000 ML IV ONE (13:49)
[2017-02-27] MEDS: LEVAQUIN PREMIX IV 750 MG 750 MG/150 ML BAG IV SCH (13:57)
[2017-02-27] MEDS: NS 1/2 1000 ML IV 1,000 ML IV SCH (13:57)
[2017-02-27] MEDS: DUONEB 0.5 MG/3 MG NEB SCH ×2 (16:20→20:28)
[2017-02-27 16:26] LABS: CKMB % 1.4 % (<4); CREATINE KINASE 71 Units/L (26-192); CREATINE KINASE MB < 1.0 ng/mL (0-4.0); TROPONIN I 0.03 ng/mL (0-1.5)
[2017-02-27] MEDS: ROBITUSSIN DM PO SCH ×2 (17:43→20:53)
[2017-02-27] MEDS: FORTAZ or TAZICEF INJ 1 GM in NS 50 ML IV + SPIKE MINIBAG* 50 ML IV SCH (22:32)
[2017-02-27 23:57] LABS: CKMB % 1.8 % (<4); CREATINE KINASE 57 Units/L (26-192); CREATINE KINASE MB < 1.0 ng/mL (0-4.0); TROPONIN I 0.02 ng/mL (0-1.5)
[2017-02-28] MEDS: DUONEB 0.5 MG/3 MG NEB SCH ×6 (01:45→20:21)
[2017-02-28] MEDS ORDERED: NS 1/2 1000 ML IV 1,000 ML IV ONE (05:20)
[2017-02-28] MEDS: FORTAZ or TAZICEF INJ 1 GM in NS 50 ML IV + SPIKE MINIBAG* 50 ML IV SCH ×3 (05:29→22:12)
[2017-02-28] MEDS: NS 1/2 1000 ML IV 1,000 ML IV SCH ×2 (05:29→20:47)
[2017-02-28 06:16] LABS: BASOPHILS # (AUTO) 0.1 X10^3/uL (0.0-0.1); BASOPHILS % (AUTO) 0.8 % (0.2-1.0); EOSINOPHILS # (AUTO) 0.2 x10^3/uL (0.0-0.2); EOSINOPHILS % (AUTO) 1.8 % (0.9-2.9); HEMATOCRIT 33.5 % (36.0-47.0); HEMOGLOBIN 11.4 g/dL (12.0-16.0); LYMPHOCYTES # (AUTO) 2.1 X10^3/uL (1.3-2.9); LYMPHOCYTES % (AUTO) 23.8 % (21.0-51.0); MEAN CORPUSCULAR HEMOGLOBIN 26.3 pg (27.0-34.0); MEAN CORPUSCULAR HGB CONC 33.9 g/dL (33.0-35.0); MEAN CORPUSCULAR VOLUME 77.6 fL (80.0-100.0); MEAN PLATELET VOLUME 7.9 fL (7.4-11.0); MONOCYTES # (AUTO) 0.7 x10^3/uL (0.3-0.8); MONOCYTES % (AUTO) 7.7 % (0.0-13.0); NEUTROPHILS # (AUTO) 5.9 x10^3/uL (2.2-4.8); NEUTROPHILS % (AUTO) 65.9 % (42.0-75.0); PLATELET COUNT 338 X10^3/uL (150.0-450.0); RED BLOOD COUNT 4.32 X10^6/uL (3.5-5.4); RED CELL DISTRIBUTION WIDTH 15.8 % (11.6-16.5)
[2017-02-28 06:23] LABS: ALANINE AMINOTRANSFERASE 15 Units/L (12-78); ALBUMIN 2.4 g/dL (3.4-5.0); ALKALINE PHOSPHATASE 70 Units/L (46-116); ASPARTATE AMINO TRANSFERASE 11 Units/L (15-37); BLOOD UREA NITROGEN 10 mg/dL (7-18); CALCIUM 8.4 mg/dL (8.5-10.1); CARBON DIOXIDE 27.4 mmol/L (21-32); CHLORIDE 105 mmol/L (98-107); COR CA(FOR HYPOALB) 9.7 mg/dL (8.5-10.1); CREATININE 0.82 mg/dL (0.55-1.02); GLUCOSE 85 mg/dL (65-99); MAGNESIUM 1.6 mg/dL (1.7-2.9); SODIUM 141 mmol/L (136-145); TOTAL PROTEIN 6.3 g/dL (6.4-8.2); eGFR BLACK RACES > 60 (>60); eGFR NON BLACK RACES > 60 (>60)
[2017-02-28] MEDS ORDERED: POTASSIUM CHLORIDE LIQ 20 MEQ UDC PO PRN (06:34)
[2017-02-28] MEDS ORDERED: K-LYTE EFFERVESCENT PO PRN (06:34)
[2017-02-28] MEDS ORDERED: K-RIDER 10 MEQ/NS 100 ML 10 MEQ/100 ML BAG IV PRN (06:34)
--- NOTE | 2017-02-28 08:31 | RAD ---
HISTORY: Cough Study: Chest one view Comparison: February 27, 2017 Findings: The heart remains enlarged. The aorta is ectatic. No definite congestive heart failure is noted. The re is subsegmental atelectasis in the right mid lung. Interstitial lung changes are present, stable. No definite pleural effusions are identified. IMPRESSION: Cardiomegaly without congestive heart failure Interstitial lung changes Subsegmental atelectasis right mid lung Reported By:
[2017-02-28] MEDS ORDERED: ROCEPHIN VIAL 1 GM 1 GM in NS 50 ML IV + SPIKE MINIBAG* 50 ML IV SCH (09:00)
[2017-02-28] MEDS: K-DUR TAB 20 MEQ PO PRN ×2 (09:33→20:45)
[2017-02-28] MEDS: ROBITUSSIN DM PO SCH ×4 (09:34→20:45)
[2017-02-28] MEDS ORDERED: MAGNESIUM SULFATE 1 GM/100 mL PREMIX 1 GM/100 ML BAG IV ONE (10:54)
[2017-02-28] MEDS: LEVAQUIN PREMIX IV 750 MG 750 MG/150 ML BAG IV SCH (11:27)
--- NOTE | 2017-02-28 11:42 | DR.H&P ---
H&P - History & Physical for Day of: H&P Date: 02/27/17 - Chief Complaint Chief Complaint: BILATERAL LOWER LOBE PNEUMONIA, CHEST PAIN - Allergies Allergies/Adverse Reactions: Allergies Allergy/AdvReac Type Severity Reaction Status Date / Time No Known Drug Allergies Allergy Verified 02/27/17 10:50 - History of Present Illness History of Present Illness: IS A 76 YEAR OLD FEMALE WHO PRESENTED TO THE ER WITH COMPLAINTS OF COUGH, COLD, CONGESTION, AND CHEST PAIN, AND UPPER BACK PAIN. PATIENT REPORTED THAT SYMPTOMS BEGAN SATURDAY AND HAVE PROGRESSIVLY GOTEN WORSE. SHE REPORTED COUGHING UP BLOOD AND SHORTNESS OF BREATH. LUNGS WERE NOTED WITH WHEEZING BILATERALY ON AUSCULTATION. ON ARRIVAL TO ER, VITALS WERE 98.9, 88, 20, 95%, 155/85. CBC WNL. CMP WNL EXCEPT POTASSIUM 2.6, AST 12, ALBUMIN 2.9. CARDIAC ENZYMES WNL. EKG REPORTS SINUS RHYTHM WITH RATE OF 82, RIGHT BBB, LEFT VENTRICULAR HYPERTROPHY. CHEST XRAY REPORTED STABLE CARDIOMEGALY WITH PROMINENCY OF CENTRAL PULMONARY VESSELS THAT MAY REPRESENT PULMONARY ARTERY HTN OR VENOUS CONGESTION, ALSO, HYPOINFLATION WITH QUESTIONABLE CROWDED VASCULAR MARKINGS OR POSSIBLE EARLY BIBASILAR ATELECTASIS OR INFILTRATES. BLOOD CULTURES AND SPUTUM CULTURE PENDING. SHE WAS GIVEN ROCEPHIN 1GM IV AND POTASSIUM 40MEQ PO IN ER. POTASSIUM INCREASED TO 3.3. WE ADMITTED PATIENT FOR FURTHER TREATMENT AND EVALUATION. WE STARTED HER ON THE PNEUMONIA PROTOCOL, ON LEVAQUIN AND FORTAZ IV. SHE WAS ALSO STARTED ON POTASSIUM PROTOCOL. WE PLANNED TO RECHECK LABS AND FOLLOW UP WITH PATIENT IN AM. - Past Medical History Past Medical History: Arthritis, Hypertension Additional Medical History: CATARACTS, PNEUMONIA, COLITIS, DIVERTICULOSIS - Past Surgical History Surgical History: Bowel Resection, 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 Additional Surgical History: COLOSTOMY/REVERSAL - Social History Does patient currently use any type of tobacco product: No Have you used tobacco products in the last 12 months: No Type of Tobacco Use: None Does any household member use tobacco: No Alcohol Use: None Drug Use: None - Review of Systems Constitutional: No Symptoms Reported. denies: See HPI, Fever, Chills, Sweats, Weakness, Malaise, Other Eyes: No Symptoms Reported. denies: See HPI, Pain, Vision Change, Conjunctivae Inflammation, Eyelid Inflammation, Redness, Other ENT: See HPI, Nose Discharge, Nose Congestion. denies: No Symptoms Reported, Ear Pain, Ear Discharge, Nose Pain, Mouth Pain, Mouth Swelling, Throat Pain, Throat Swelling, Other Respiratory: See HPI, Cough, Shortness of Breath, Wheezing. denies: No Symptoms Reported, Dry, Hemoptysis, SOB with Excertion, Pleuritic Pain, Sputum, Other Cardiovascular: Chest Pain. denies: No Symptoms Reported, See HPI, Palpitations , Orthopnea, Paroxysmal Noc. Dyspnea, Edema, Light Headedness, Other Gastrointestinal: No Symptoms Reported. denies: See HPI, Nausea, Vomiting, Abdominal Pain, Diarrhea, Constipation, Melena, Hematochezia, Other Genitourinary: No Symptoms Reported. denies: See HPI, Dysuria, Frequency, Incontinence, Hematuria, Retention, Other Musculoskeletal: No Symptoms Reported. denies: See HPI, Shoulder Pain, Arm Pain , Back Pain, Hand Pain, Leg Pain, Foot Pain, Neck Pain, Other Skin: No Symptoms Reported. denies: See HPI, Rash, Lesions, Jaundice, Bruising , Wound, Ecchymosis, Other Neurological: No Symptoms Reported. denies: See HPI, Weakness, Numbness, Incoordination, Change in Speech, Confusion, Seizures, Other - Physical Exam Vital Signs: Temperature 98.0 F Pulse Rate [Left Brachial] 77 Pulse Rate 96 Respiratory Rate 21 Blood Pressure [Left Arm] 138/8 O2 Sat by Pulse Oximetry 94 Oriented: Normal. negative: Time, Person, Place, Not Oriented, Unable to test, Other Eyes: Normal. negative: Blurred Vision, Diplopia, Discharge, Pain, Redness, Photophobia, Other Ear: Normal. negative: Right, Left, Swelling, Ecchymosis, Hemotypanum, Abrasion , Laceration Nose: Discharge. negative: Normal, Injected, Blood, Other Throat: Normal. negative: Tonsillar Hypertrophy, Red, Exudate, Dry, Other Respiratory: Wheezes Throughout. negative: Clear Throughout, Diminished Throughout, Rhonchi Throughout, Rales Throughout, RUL Clear, RML Clear, RLL Clear, TOSHIA Clear, LML Clear, LLL Clear, RUL Diminished, RML Diminished, RLL Diminished, TOSHIA Diminished, LML Diminished, LLL Diminished, RUL Absent, RML Absent, RLL Absent, TOSHIA Absent, LML Absent, LLL Absent, RUL Rhonchi, RML Rhonchi , RLL Rhonchi, TOSHIA Rhonchi, LML Rhonchi, LLL Rhonchi, RUL Insp. Wheeze, RML Insp. Wheeze, RLL Insp. Wheeze, TOSHIA Insp.Wheeze, LML Insp.Wheeze, LLL Insp.Wheeze, RUL Exp. Wheeze, RML Exp. Wheeze, RLL Exp. Wheeze, TOSHIA Exp. Wheeze , LML Exp. Wheeze, LLL Exp. Wheeze, RUL Rales, RML Rales, RLL Rales, TOSHIA Rales, LML Rales, LLL Rales, RUL Rub, RML Rub, RLL Rub, TOSHIA Rub, LML Rub, LLL Rub, RUL Squeak, RML Squeak, RLL Squeak, TOSHIA Squeak, LML Squeak, LLL Squeak Cardiovascular: Normal : Normal. negative: Dysuria, Hematuria, Frequency, Discharge, Testicular Pain , Bleeding, , Other Auscultation: Bowel Sounds: Normal. negative: Bruit, Absent, Increased, Decreased, High Pitched, Other Palpation: Normal. negative: Spleen Enlarged, Liver Enlarged, Mass Pulsatile, Other Tenderness: Normal. negative: Diffuse, RUQ, RLQ, LUQ, LLQ, Epigastric, Periumbilical, Suprapubic, Mild, Moderate, Severe, Rebound, Guarding, Rigidity, Other Skin: Normal. negative: Decreased Turgur, Rash, Papular, Macular, Maculopapular , Vesicular, Pustular, Petechial, Red, Tender, Hot, Diaphoresis, Wound, Bruising , Ecchymosis, Other Musculoskeletal: Normal. negative: Right, Left, Shoulder, Clavicle, Arm, Elbow , Forearm, Wrist, Hand, Hip, Thigh, Knee, Leg, Ankle, Foot, Back:Thoracic, Back: Lumbar, Back:Midline, Back:Paraspinous, Pelvis, Swelling, Tender, Deformity, Pulse Deficit, Motor Deficit, Sensory Deficit, Instability, Crepitance Psychiatric: Normal. negative: Anxiety, Depression, Agitation, Other Mood Description: Calm. negative: Angry, Apathetic, Depressed, Fearful, Flat, Happy, Hostile, Sad, Suspicious, Withdrawn, Anxious, Appropriate, Labile Affect: Normal. negative: Angry, Anxious, Depressed, Flat, Hysterical, Quiet, Violent Speech Pattern: Clear. negative: Appropriate, Unclear, Inappropriate, Delayed, Slurred, Excessive, Aphasic, Artificially Ventilated - Assessment/Plan (1) Community acquired pneumonia Qualifiers: Laterality: left Lung location: lower lobe of lung Qualified Code(s): J18.1 - Lobar pneumonia, unspecified organism Status: Acute Plan: PNEUMONIA PROTOCOL, LEVAQUIN IV, FORTAZ IV, DUONEBS, SUPPLEMENTAL OXYGEN, CONTINUE TO MONITOR LABS AND PATIENT. (2) Chest pain Qualifiers: Chest pain type: unspecified Ischemic chest pain type: I Qualified Code(s ): R07.9 - Chest pain, unspecified Status: Acute Plan: SERIAL CARDIAC ENZYMES AND EKG, CONTINUE TO MONITOR (3) Hypokalemia Status: Acute Plan: POTASSIUM PROTOCOL, CONTINUE TO MONITOR
[2017-02-28] MEDS ORDERED: FOLIC ACID 800 MCG PO SCH (12:45)
[2017-02-28] MEDS ORDERED: PATIENT'S HOME MEDICATION (Losartan/Hydrochlorothiazide [Losartan-Hctz 100-25 Mg Tab] 1 TA PO SCH (12:45)
--- NOTE | 2017-02-28 16:53 | PCM.PROG ---
Progress Note - Progress Note for Day of Date: 02/28/17 - Subjective Subjective: IS ALERT AND ORIENTED, AMBULATING IN ROOM ON MORNING ROUNDS. SHE COMPLAINS OF CHEST PAIN, SHORTNESS OF BREATH, AND PRODUCTIVE COUGH ON ROUNDS. SHE IS NOTED WITH WHEEZING BILATERALLY ON AUSCULTATION. VITALS THIS AM ARE 98.6-77-21-96%-138/58. CBC REPORTED WBC 9.0, HGB 11.4, HCT 33.5. CMP REPORTED SODIUM 141, POTASSIUM 3.0, BUN 10, CREATININE 0.82, CALCIUM 8.4, AST 11 , ALT 15, TOTAL PROTEIN 6.3, ALBUMIN 2.4, MAGNESIUM 1.6. BNP 32.4. CHEST XRAY REPORTS CARDIOMEGALY WITHOUT CHF, INTERSTITUAL LUNG CHANGES, AND SUBSEGMENTAL ATELECTASIS RIGHT MID LUNG. SPUTUM CULTURES ARE PENDING. WE WILL ORDER AN ECHO, START MAGNESIUM 1 GM IV X 1 DOSE, AND REVIEW HOME MEDICATIONS. WE WILL RECHECK LABS AND FOLLOW UP WITH PATIENT IN AM. - Past Medical Family Social History Past Med/Fam/Surg Hx: No changes since H&P Allergies: Allergies No Known Drug Allergies Allergy (Verified 02/27/17 10:50) - Review of Systems ROS: No change since H&P - Vital Signs and I&O's Vital Signs: Temperature 98.9 F Pulse Rate [Left Brachial] 88 Pulse Rate 102 Respiratory Rate 20 Blood Pressure [Left Arm] 142/81 O2 Sat by Pulse Oximetry 94 Intake and Output: Intake & Output 02/26/17 02/27/17 02/28/17 03/01/17 11:59 11:59 11:59 11:59 Intake Total 1300 Output Total 800 Balance 500 - Physical Exam Oriented: Normal. negative: Time, Person, Place, Not Oriented, Unable to test, Other Eyes: Normal. negative: Blurred Vision, Diplopia, Discharge, Pain, Redness, Photophobia, Other Ear: Normal. negative: Right, Left, Swelling, Ecchymosis, Hemotypanum, Abrasion , Laceration Nose: Discharge. negative: Normal, Injected, Blood, Other Throat: Normal. negative: Tonsillar Hypertrophy, Red, Exudate, Dry, Other Respiratory: Right, Left, Wheezes Cardiovascular: Normal : Normal. negative: Dysuria, Hematuria, Frequency, Discharge, Testicular Pain , Bleeding, , Other Auscultation: Bowel Sounds: Normal. negative: Bruit, Absent, Increased, Decreased, High Pitched, Other Palpation: Normal Tenderness: Normal. negative: Diffuse, RUQ, RLQ, LUQ, LLQ, Epigastric, Periumbilical, Suprapubic, Mild, Moderate, Severe, Rebound, Guarding, Rigidity, Other Skin: Normal. negative: Decreased Turgur, Rash, Papular, Macular, Maculopapular , Vesicular, Pustular, Petechial, Red, Tender, Hot, Diaphoresis, Wound, Bruising , Ecchymosis, Other Musculoskeletal: Normal. negative: Right, Left, Shoulder, Clavicle, Arm, Elbow , Forearm, Wrist, Hand, Hip, Thigh, Knee, Leg, Ankle, Foot, Back:Thoracic, Back: Lumbar, Back:Midline, Back:Paraspinous, Pelvis, Swelling, Tender, Deformity, Pulse Deficit, Motor Deficit, Sensory Deficit, Instability, Crepitance Psychiatric: Normal. negative: Anxiety, Depression, Agitation, Other Mood Description: Calm. negative: Angry, Apathetic, Depressed, Fearful, Flat, Happy, Hostile, Sad, Suspicious, Withdrawn, Anxious, Appropriate, Labile Affect: Normal. negative: Angry, Anxious, Depressed, Flat, Hysterical, Quiet, Violent Speech Pattern: Clear. negative: Appropriate, Unclear, Inappropriate, Delayed, Slurred, Excessive, Aphasic, Artificially Ventilated - Laboratory and Diagnostics Result Diagrams: 02/28/17 03:30 02/28/17 13:53 Labs: Laboratory WBC 9.0 X10^3/uL (3.6-10.0) 02/28/17 03:30 RBC 4.32 X10^6/uL (3.5-5.4) 02/28/17 03:30 Hgb 11.4 g/dL (12.0-16.0) L 02/28/17 03:30 Hct 33.5 % (36.0-47.0) L 02/28/17 03:30 MCV 77.6 fL (80.0-100.0) L 02/28/17 03:30 MCH 26.3 pg (27.0-34.0) L 02/28/17 03:30 MCHC 33.9 g/dL (33.0-35.0) 02/28/17 03:30 RDW 15.8 % (11.6-16.5) 02/28/17 03:30 Plt Count 338 X10^3/uL (150.0-450.0) 02/28/17 03:30 MPV 7.9 fL (7.4-11.0) 02/28/17 03:30 Neut % 65.9 % (42.0-75.0) 02/28/17 03:30 Lymph % 23.8 % (21.0-51.0) 02/28/17 03:30 [place] % 7.7 % (0.0-13.0) 02/28/17 03:30 Eos % 1.8 % (0.9-2.9) 02/28/17 03:30 Baso % 0.8 % (0.2-1.0) 02/28/17 03:30 Neut # 5.9 x10^3/uL (2.2-4.8) H 02/28/17 03:30 Lymph # 2.1 X10^3/uL (1.3-2.9) 02/28/17 03:30 [place] # 0.7 x10^3/uL (0.3-0.8) 02/28/17 03:30 Eos # 0.2 x10^3/uL (0.0-0.2) 02/28/17 03:30 Baso # 0.1 X10^3/uL (0.0-0.1) 02/28/17 03:30 Absolute Nucleated RBC 0.1 /100WBC 02/28/17 03:30 Sodium 141 mmol/L (136-145) 02/28/17 03:30 Corrected Sodium TNP 02/28/17 03:30 Potassium 3.3 mmol/L (3.5-5.1) L 02/28/17 13:53 Chloride 105 mmol/L (98-107) 02/28/17 03:30 Carbon Dioxide 27.4 mmol/L (21-32) 02/28/17 03:30 BUN 10 mg/dL (7-18) 02/28/17 03:30 Creatinine 0.82 mg/dL (0.55-1.02) 02/28/17 03:30 Est GFR (MDRD) Af Amer > 60 (>60) 02/28/17 03:30 Est GFR (MDRD) Non-Af > 60 (>60) 02/28/17 03:30 Glucose 85 mg/dL (65-99) 02/28/17 03:30 Calcium 8.4 mg/dL (8.5-10.1) L 02/28/17 03:30 Corrected Calcium 9.7 mg/dL (8.5-10.1) 02/28/17 03:30 Magnesium 1.6 mg/dL (1.7-2.9) L 02/28/17 03:30 Total Bilirubin 0.30 mg/dL (0.2-1.0) 02/28/17 03:30 AST 11 Units/L (15-37) L 02/28/17 03:30 ALT 15 Units/L (12-78) 02/28/17 03:30 Alkaline Phosphatase 70 Units/L (46-116) 02/28/17 03:30 Creatine Kinase 57 Units/L (26-192) 02/27/17 23:20 CK-MB (CK-2) < 1.0 ng/mL (0-4.0) 02/27/17 23:20 CK/CKMB % Calc 1.8 % (<4) 02/27/17 23:20 Troponin I 0.02 ng/mL (0-1.5) 02/27/17 23:20 B-Natriuretic Peptide 32.4 pg/mL (0-79) 02/28/17 11:05 Total Protein 6.3 g/dL (6.4-8.2) L 02/28/17 03:30 Albumin 2.4 g/dL (3.4-5.0) L 02/28/17 03:30 Globulin 3.9 g/dL (2.5-4.5) 02/28/17 03:30 Albumin/Globulin Ratio 0.6 Ratio (1.1-2.1) L 02/28/17 03:30 - Plan (1) Community acquired pneumonia Status: Acute Qualifiers: Laterality: left Lung location: lower lobe of lung Qualified Code(s): J18.1 - Lobar pneumonia, unspecified organism Plan: PNEUMONIA PROTOCOL, LEVAQUIN IV, FORTAZ IV, DUONEBS, SUPPLEMENTAL OXYGEN, CONTINUE TO MONITOR LABS AND PATIENT. (2) Chest pain Status: Acute Qualifiers: Chest pain type: unspecified Ischemic chest pain type: I Qualified Code(s ): R07.9 - Chest pain, unspecified Plan: SERIAL CARDIAC ENZYMES AND EKG, CONTINUE TO MONITOR (3) Hypokalemia Status: Acute Plan: POTASSIUM PROTOCOL, CONTINUE TO MONITOR (4) Hypomagnesemia Status: Acute Plan: MAGNESIUM SULFATE 1 GM IV X 1 DOSE, CONTINUE TO MONITOR
[2017-02-28] MEDS: ZyrTEC TAB 10 MG PO SCH (20:45)
[2017-02-28] MEDS ORDERED: PATIENT'S HOME MEDICATION (Cetirizine Hcl [Cetirizine Hcl] 10 MG) PO SCH (21:00)
[2017-03-01] MEDS: DUONEB 0.5 MG/3 MG NEB SCH ×6 (01:33→20:22)
[2017-03-01] MEDS ORDERED: NS 1/2 1000 ML IV 1,000 ML IV ONE ×2 (02:16→20:33)
[2017-03-01] MEDS: NS 1/2 1000 ML IV 1,000 ML IV SCH ×3 (02:20→21:03)
[2017-03-01] MEDS: FORTAZ or TAZICEF INJ 1 GM in NS 50 ML IV + SPIKE MINIBAG* 50 ML IV SCH ×3 (05:13→21:02)
[2017-03-01 05:54] LABS: B-TYPE NATRIURETIC PEPTIDE 40.4 pg/mL (0-79)
[2017-03-01 05:55] LABS: ALANINE AMINOTRANSFERASE 14 Units/L (12-78); ALBUMIN 2.4 g/dL (3.4-5.0); ALKALINE PHOSPHATASE 71 Units/L (46-116); ASPARTATE AMINO TRANSFERASE 10 Units/L (15-37); BLOOD UREA NITROGEN 8 mg/dL (7-18); CALCIUM 8.5 mg/dL (8.5-10.1); CHLORIDE 105 mmol/L (98-107); COR CA(FOR HYPOALB) 9.8 mg/dL (8.5-10.1); CREATININE 0.76 mg/dL (0.55-1.02); GLUCOSE 101 mg/dL (65-99); SODIUM 139 mmol/L (136-145); TOTAL PROTEIN 6.3 g/dL (6.4-8.2); eGFR BLACK RACES > 60 (>60); eGFR NON BLACK RACES > 60 (>60)
--- NOTE | 2017-03-01 06:15 | RAD ---
HISTORY: Cough, shortness of breath Study: Chest one view Comparison: February 28, 2017 Findings: the heart remains enlarged. No definite congestive heart failure is noted. Diffuse interstitial lung changes are present. Perihilar subsegmental atelectasis is present bilaterally right greater than l eft. Increasing density is present in the right lung base which may indicate developing superimposed alveolar infiltrate. Follow up of this area is recommended. No pleural effusions are identified. Th e bony thorax is unremarkable. IMPRESSION: Cardiomegaly without congestive heart failure Diffuse interstitial lung changes Perihilar subsegmental atelectasis bilaterally Increasing density in the right lung base which may indicate a developing superimposed alveolar infi ltrate. Follow up of this area is recommended. Reported By:
[2017-03-01 06:17] LABS: BASOPHILS # (AUTO) 0.1 X10^3/uL (0.0-0.1); BASOPHILS % (AUTO) 0.9 % (0.2-1.0); EOSINOPHILS # (AUTO) 0.2 x10^3/uL (0.0-0.2); EOSINOPHILS % (AUTO) 1.7 % (0.9-2.9); HEMATOCRIT 33.2 % (36.0-47.0); HEMOGLOBIN 11.1 g/dL (12.0-16.0); LYMPHOCYTES # (AUTO) 1.4 X10^3/uL (1.3-2.9); LYMPHOCYTES % (AUTO) 15.2 % (21.0-51.0); MEAN CORPUSCULAR HEMOGLOBIN 26.3 pg (27.0-34.0); MEAN CORPUSCULAR HGB CONC 33.5 g/dL (33.0-35.0); MEAN CORPUSCULAR VOLUME 78.3 fL (80.0-100.0); MEAN PLATELET VOLUME 7.9 fL (7.4-11.0); MONOCYTES # (AUTO) 0.8 x10^3/uL (0.3-0.8); MONOCYTES % (AUTO) 9.1 % (0.0-13.0); NEUTROPHILS # (AUTO) 6.5 x10^3/uL (2.2-4.8); NEUTROPHILS % (AUTO) 73.1 % (42.0-75.0); PLATELET COUNT 342 X10^3/uL (150.0-450.0); RED BLOOD COUNT 4.24 X10^6/uL (3.5-5.4); WHITE BLOOD COUNT 8.9 X10^3/uL (3.6-10.0)
[2017-03-01] MEDS: FOLIC ACID TAB 1 MG PO SCH (08:29)
[2017-03-01] MEDS: HYZAAR 50/12.5 MG PO SCH (08:29)
[2017-03-01] MEDS: LEVAQUIN PREMIX IV 750 MG 750 MG/150 ML BAG IV SCH (08:29)
[2017-03-01] MEDS: ROBITUSSIN DM PO SCH (08:30)
[2017-03-01] MEDS: TUSSIONEX PENNKINETIC SUSP PO SCH ×2 (11:31→23:00)
[2017-03-01] MEDS: MUCINEX DM PO SCH ×2 (11:32→21:02)
--- NOTE | 2017-03-01 13:09 | CT ---
HISTORY: Shaking, confusion. Study: CT brain without contrast Comparison: None. Technique: Multiple axial images of the brain were obtained from the skull base to the vertex without administr ation of IV contrast. Dose reduction techniques including Automated Exposure Control (AEC) and adju stment of mA and kV were utilized. Findings: Age related cortical atrophy and chronic small vessel ischemic changes. Remote right craniotomy miller ges. No acute intraparenchymal hemorrhage or mass can be identified. No extra-axial fluid collectio ns are seen. No alteration in the attenuation of the brain parenchyma can be identified to suggest acute or subacute ischemic change. The ventricular system is symmetric and nondilated. Remaining os seous structures appear intact. The visualized paranasal sinuses and mastoid air cells are clear. IMPRESSION: No obvious acute intracranial pathology. If clinically concerned for acute ischemia/infa rction, MRI brain is more sensitive. Reported By:
--- NOTE | 2017-03-01 14:07 | PCM.PROG ---
Progress Note - Progress Note for Day of Date: 03/01/17 - Subjective Subjective: IS ALERT AND ORIENTED, LYING IN BED ON MORNING ROUNDS. DAUGHTER AT BEDSIDE. PATIENT CONTINUES WITH SHORTNESS OF BREATH AND PRODUCTIVE COUGH ON ROUNDS. PATIENT'S DAUGHTER STATES THAT PATIENT HAS BEEN SHAKING AND CONFUSED. SHE IS NOTED WITH WHEEZING BILATERALLY ON AUSCULTATION. VITALS THIS AM ARE 98.7-91-16-90%-136/74. CBC REPORTED WBC 8.9, HGB 11.1, HCT 33.2. CMP REPORTED SODIUM 139, POTASSIUM 3.7, BUN 8, CREATININE 0.76, CALCIUM 8.5, AST 10 , ALT 14, TOTAL PROTEIN 6.3, ALBUMIN 2.4, MAGNESIUM 1.8. BNP 40.4. CHEST XRAY REPORTS CARDIOMEGALY WITHOUT CHF, INTERSTITUAL LUNG CHANGES, AND SUBSEGMENTAL ATELECTASIS BILATERALLY. SPUTUM CULTURES ARE PENDING. WE WILL OBTAIN A BRAIN CT AND START MUCINEX 600MG BID. WE WILL RECHECK LABS AND FOLLOW UP WITH PATIENT IN AM. - Past Medical Family Social History Past Med/Fam/Surg Hx: No changes since H&P Allergies: Allergies No Known Drug Allergies Allergy (Verified 02/27/17 10:50) - Review of Systems ROS: No change since H&P - Vital Signs and I&O's Vital Signs: Temperature 98.6 F Pulse Rate [Left Brachial] 89 Pulse Rate 96 Respiratory Rate 20 Blood Pressure [Left Arm] 129/66 Blood Pressure [Right Arm] 136/74 O2 Sat by Pulse Oximetry 94 Intake and Output: Intake & Output 02/27/17 02/28/17 03/01/17 03/02/17 11:59 11:59 11:59 11:59 Intake Total 1300 1390 Output Total 800 1750 Balance 500 -360 - Physical Exam Oriented: Normal. negative: Time, Person, Place, Not Oriented, Unable to test, Other Eyes: Normal. negative: Blurred Vision, Diplopia, Discharge, Pain, Redness, Photophobia, Other Ear: Normal. negative: Right, Left, Swelling, Ecchymosis, Hemotypanum, Abrasion , Laceration Nose: Discharge. negative: Normal, Injected, Blood, Other Throat: Normal. negative: Tonsillar Hypertrophy, Red, Exudate, Dry, Other Respiratory: Right, Left, Wheezes Cardiovascular: Normal : Normal. negative: Dysuria, Hematuria, Frequency, Discharge, Testicular Pain , Bleeding, , Other Auscultation: Bowel Sounds: Normal. negative: Bruit, Absent, Increased, Decreased, High Pitched, Other Palpation: Normal Tenderness: Normal. negative: Diffuse, RUQ, RLQ, LUQ, LLQ, Epigastric, Periumbilical, Suprapubic, Mild, Moderate, Severe, Rebound, Guarding, Rigidity, Other Skin: Normal. negative: Decreased Turgur, Rash, Papular, Macular, Maculopapular , Vesicular, Pustular, Petechial, Red, Tender, Hot, Diaphoresis, Wound, Bruising , Ecchymosis, Other Musculoskeletal: Normal. negative: Right, Left, Shoulder, Clavicle, Arm, Elbow , Forearm, Wrist, Hand, Hip, Thigh, Knee, Leg, Ankle, Foot, Back:Thoracic, Back: Lumbar, Back:Midline, Back:Paraspinous, Pelvis, Swelling, Tender, Deformity, Pulse Deficit, Motor Deficit, Sensory Deficit, Instability, Crepitance Psychiatric: Normal. negative: Anxiety, Depression, Agitation, Other Mood Description: Calm. negative: Angry, Apathetic, Depressed, Fearful, Flat, Happy, Hostile, Sad, Suspicious, Withdrawn, Anxious, Appropriate, Labile Affect: Normal. negative: Angry, Anxious, Depressed, Flat, Hysterical, Quiet, Violent Speech Pattern: Clear, Appropriate - Laboratory and Diagnostics Result Diagrams: 03/01/17 03:30 03/01/17 03:30 Labs: Laboratory WBC 8.9 X10^3/uL (3.6-10.0) 03/01/17 03:30 RBC 4.24 X10^6/uL (3.5-5.4) 03/01/17 03:30 Hgb 11.1 g/dL (12.0-16.0) L 03/01/17 03:30 Hct 33.2 % (36.0-47.0) L 03/01/17 03:30 MCV 78.3 fL (80.0-100.0) L 03/01/17 03:30 MCH 26.3 pg (27.0-34.0) L 03/01/17 03:30 MCHC 33.5 g/dL (33.0-35.0) 03/01/17 03:30 RDW 16.0 % (11.6-16.5) 03/01/17 03:30 Plt Count 342 X10^3/uL (150.0-450.0) 03/01/17 03:30 MPV 7.9 fL (7.4-11.0) 03/01/17 03:30 Neut % 73.1 % (42.0-75.0) 03/01/17 03:30 Lymph % 15.2 % (21.0-51.0) L 03/01/17 03:30 [place] % 9.1 % (0.0-13.0) 03/01/17 03:30 Eos % 1.7 % (0.9-2.9) 03/01/17 03:30 Baso % 0.9 % (0.2-1.0) 03/01/17 03:30 Neut # 6.5 x10^3/uL (2.2-4.8) H 03/01/17 03:30 Lymph # 1.4 X10^3/uL (1.3-2.9) 03/01/17 03:30 [place] # 0.8 x10^3/uL (0.3-0.8) 03/01/17 03:30 Eos # 0.2 x10^3/uL (0.0-0.2) 03/01/17 03:30 Baso # 0.1 X10^3/uL (0.0-0.1) 03/01/17 03:30 Absolute Nucleated RBC 0.0 /100WBC 03/01/17 03:30 Sodium 139 mmol/L (136-145) 03/01/17 03:30 Corrected Sodium TNP 03/01/17 03:30 Potassium 3.7 mmol/L (3.5-5.1) 03/01/17 03:30 Chloride 105 mmol/L (98-107) 03/01/17 03:30 Carbon Dioxide 28.0 mmol/L (21-32) 03/01/17 03:30 BUN 8 mg/dL (7-18) 03/01/17 03:30 Creatinine 0.76 mg/dL (0.55-1.02) 03/01/17 03:30 Est GFR (MDRD) Af Amer > 60 (>60) 03/01/17 03:30 Est GFR (MDRD) Non-Af > 60 (>60) 03/01/17 03:30 Glucose 101 mg/dL (65-99) H 03/01/17 03:30 Calcium 8.5 mg/dL (8.5-10.1) 03/01/17 03:30 Corrected Calcium 9.8 mg/dL (8.5-10.1) 03/01/17 03:30 Magnesium 1.8 mg/dL (1.7-2.9) 03/01/17 03:30 Total Bilirubin 0.60 mg/dL (0.2-1.0) 03/01/17 03:30 AST 10 Units/L (15-37) L 03/01/17 03:30 ALT 14 Units/L (12-78) 03/01/17 03:30 Alkaline Phosphatase 71 Units/L (46-116) 03/01/17 03:30 Creatine Kinase 57 Units/L (26-192) 02/27/17 23:20 CK-MB (CK-2) < 1.0 ng/mL (0-4.0) 02/27/17 23:20 CK/CKMB % Calc 1.8 % (<4) 02/27/17 23:20 Troponin I 0.02 ng/mL (0-1.5) 02/27/17 23:20 B-Natriuretic Peptide 40.4 pg/mL (0-79) 03/01/17 03:30 Total Protein 6.3 g/dL (6.4-8.2) L 03/01/17 03:30 Albumin 2.4 g/dL (3.4-5.0) L 03/01/17 03:30 Globulin 3.9 g/dL (2.5-4.5) 03/01/17 03:30 Albumin/Globulin Ratio 0.6 Ratio (1.1-2.1) L 03/01/17 03:30 - Plan (1) Community acquired pneumonia Status: Acute Qualifiers: Laterality: left Lung location: lower lobe of lung Qualified Code(s): J18.1 - Lobar pneumonia, unspecified organism Plan: PNEUMONIA PROTOCOL, START MUCINEX 600MG PO BID, LEVAQUIN IV, FORTAZ IV, DUONEBS, SUPPLEMENTAL OXYGEN, CONTINUE TO MONITOR LABS AND PATIENT. (2) Chest pain Status: Acute Qualifiers: Chest pain type: unspecified Ischemic chest pain type: I Qualified Code(s ): R07.9 - Chest pain, unspecified Plan: CONTINUE TO MONITOR (3) Hypokalemia Status: Acute Plan: POTASSIUM PROTOCOL, CONTINUE TO MONITOR (4) Hypomagnesemia Status: Acute Plan: CONTINUE TO MONITOR
[2017-03-01] MEDS: ALBUMIN HUMAN 25%- 100ML 100 ML IV SCH (16:51)
[2017-03-01] MEDS: ZyrTEC TAB 10 MG PO SCH (21:02)
[2017-03-02] MEDS: DUONEB 0.5 MG/3 MG NEB SCH ×6 (00:41→20:59)
[2017-03-02] MEDS: FORTAZ or TAZICEF INJ 1 GM in NS 50 ML IV + SPIKE MINIBAG* 50 ML IV SCH ×3 (06:11→21:40)
[2017-03-02 06:23] LABS: BASOPHILS # (AUTO) 0.1 X10^3/uL (0.0-0.1); BASOPHILS % (AUTO) 1.1 % (0.2-1.0); EOSINOPHILS # (AUTO) 0.2 x10^3/uL (0.0-0.2); EOSINOPHILS % (AUTO) 2.8 % (0.9-2.9); HEMATOCRIT 30.3 % (36.0-47.0); HEMOGLOBIN 10.3 g/dL (12.0-16.0); LYMPHOCYTES # (AUTO) 1.4 X10^3/uL (1.3-2.9); LYMPHOCYTES % (AUTO) 19.1 % (21.0-51.0); MEAN CORPUSCULAR HEMOGLOBIN 26.7 pg (27.0-34.0); MEAN CORPUSCULAR VOLUME 78.5 fL (80.0-100.0); MEAN PLATELET VOLUME 7.8 fL (7.4-11.0); MONOCYTES # (AUTO) 0.5 x10^3/uL (0.3-0.8); MONOCYTES % (AUTO) 6.8 % (0.0-13.0); NEUTROPHILS # (AUTO) 5.3 x10^3/uL (2.2-4.8); NEUTROPHILS % (AUTO) 70.2 % (42.0-75.0); PLATELET COUNT 302 X10^3/uL (150.0-450.0); RED BLOOD COUNT 3.86 X10^6/uL (3.5-5.4); RED CELL DISTRIBUTION WIDTH 15.8 % (11.6-16.5); WHITE BLOOD COUNT 7.5 X10^3/uL (3.6-10.0)
[2017-03-02 06:33] LABS: ALANINE AMINOTRANSFERASE 13 Units/L (12-78); ALBUMIN 2.6 g/dL (3.4-5.0); ALKALINE PHOSPHATASE 63 Units/L (46-116); ASPARTATE AMINO TRANSFERASE 12 Units/L (15-37); BLOOD UREA NITROGEN 9 mg/dL (7-18); CALCIUM 8.6 mg/dL (8.5-10.1); CARBON DIOXIDE 29.5 mmol/L (21-32); CHLORIDE 103 mmol/L (98-107); COR CA(FOR HYPOALB) 9.7 mg/dL (8.5-10.1); CREATININE 0.74 mg/dL (0.55-1.02); GLUCOSE 94 mg/dL (65-99); SODIUM 139 mmol/L (136-145); TOTAL PROTEIN 6.2 g/dL (6.4-8.2); eGFR BLACK RACES > 60 (>60); eGFR NON BLACK RACES > 60 (>60)
--- NOTE | 2017-03-02 07:10 | RAD ---
HISTORY: Shortness of breath, cough. Study: Portable chest. Comparison: Chest x-ray dated March 01, 2017. Findings: Cardiomegaly appears unchanged. Overall lung aeration appears unchanged. No obvious pneumothorax or pleural effusion. The osseous structures appear unchanged. IMPRESSION: No significant change. Reported By:
[2017-03-02] MEDS: ALBUMIN HUMAN 25%- 100ML 100 ML IV SCH (08:38)
[2017-03-02] MEDS: K-DUR TAB 20 MEQ PO PRN (08:40)
[2017-03-02] MEDS: MUCINEX DM PO SCH ×2 (08:40→21:44)
[2017-03-02] MEDS: FOLIC ACID TAB 1 MG PO SCH (08:40)
[2017-03-02] MEDS: LEVAQUIN PREMIX IV 750 MG 750 MG/150 ML BAG IV SCH (08:41)
[2017-03-02] MEDS: HYZAAR 50/12.5 MG PO SCH (08:41)
[2017-03-02] MEDS ORDERED: MAGNESIUM SULFATE 1 GM/100 mL PREMIX 1 GM/100 ML BAG IV ONE (09:07)
[2017-03-02] MEDS: TUSSIONEX PENNKINETIC SUSP PO SCH ×2 (10:32→21:44)
[2017-03-02] MEDS: MOBIC TAB 15 MG PO SCH (10:37)
[2017-03-02] MEDS: NS 1/2 1000 ML IV 1,000 ML IV SCH (17:58)
[2017-03-02] MEDS: ZyrTEC TAB 10 MG PO SCH (21:41)
[2017-03-02] MEDS: RESTORIL CAP 15 MG PO PRN (23:00)
[2017-03-03] MEDS: DUONEB 0.5 MG/3 MG NEB SCH ×6 (00:40→21:10)
[2017-03-03] MEDS: RESTORIL CAP 15 MG PO PRN ×2 (01:16→21:31)
[2017-03-03] MEDS ORDERED: NS 1/2 1000 ML IV 1,000 ML IV ONE (01:47)
[2017-03-03] MEDS: NS 1/2 1000 ML IV 1,000 ML IV SCH ×2 (04:48→17:00)
--- NOTE | 2017-03-03 05:29 | RAD ---
Chest, one view Indication: Shortness of breath, cough. Comparison: 03/02/2017 Findings: Cardiac silhouette enlargement is unchanged. There is no overt pulmonary edema. There is s table linear right mid lung subsegmental atelectasis. Right basilar parenchymal opacities are simila r to prior. No focal left lung infiltrates identified. Impression: No significant change from prior. Stable cardiomegaly without overt edema. Persistent right basilar parenchymal opacities. Again, infiltrate is not excluded. Reported By:
[2017-03-03 06:19] LABS: BASOPHILS # (AUTO) 0.1 X10^3/uL (0.0-0.1); BASOPHILS % (AUTO) 0.7 % (0.2-1.0); EOSINOPHILS # (AUTO) 0.3 x10^3/uL (0.0-0.2); EOSINOPHILS % (AUTO) 3.1 % (0.9-2.9); HEMATOCRIT 30.8 % (36.0-47.0); HEMOGLOBIN 10.4 g/dL (12.0-16.0); LYMPHOCYTES # (AUTO) 1.4 X10^3/uL (1.3-2.9); LYMPHOCYTES % (AUTO) 16.9 % (21.0-51.0); MEAN CORPUSCULAR HEMOGLOBIN 26.4 pg (27.0-34.0); MEAN CORPUSCULAR HGB CONC 33.9 g/dL (33.0-35.0); MEAN CORPUSCULAR VOLUME 77.8 fL (80.0-100.0); MEAN PLATELET VOLUME 7.8 fL (7.4-11.0); MONOCYTES # (AUTO) 0.6 x10^3/uL (0.3-0.8); MONOCYTES % (AUTO) 7.6 % (0.0-13.0); NEUTROPHILS # (AUTO) 5.9 x10^3/uL (2.2-4.8); NEUTROPHILS % (AUTO) 71.7 % (42.0-75.0); PLATELET COUNT 353 X10^3/uL (150.0-450.0); RED BLOOD COUNT 3.96 X10^6/uL (3.5-5.4); RED CELL DISTRIBUTION WIDTH 16.2 % (11.6-16.5); WHITE BLOOD COUNT 8.2 X10^3/uL (3.6-10.0)
[2017-03-03] MEDS: FORTAZ or TAZICEF INJ 1 GM in NS 50 ML IV + SPIKE MINIBAG* 50 ML IV SCH (06:24)
[2017-03-03 06:29] LABS: ALANINE AMINOTRANSFERASE 15 Units/L (12-78); ALBUMIN 2.9 g/dL (3.4-5.0); ALKALINE PHOSPHATASE 65 Units/L (46-116); ASPARTATE AMINO TRANSFERASE 15 Units/L (15-37); BLOOD UREA NITROGEN 10 mg/dL (7-18); CALCIUM 9.2 mg/dL (8.5-10.1); CARBON DIOXIDE 29.2 mmol/L (21-32); CHLORIDE 100 mmol/L (98-107); COR CA(FOR HYPOALB) 10.1 mg/dL (8.5-10.1); CREATININE 0.78 mg/dL (0.55-1.02); GLUCOSE 102 mg/dL (65-99); MAGNESIUM 1.9 mg/dL (1.7-2.9); SODIUM 136 mmol/L (136-145); TOTAL PROTEIN 6.6 g/dL (6.4-8.2); eGFR BLACK RACES > 60 (>60); eGFR NON BLACK RACES > 60 (>60)
[2017-03-03] MEDS: ALBUMIN HUMAN 25%- 100ML 100 ML IV SCH (08:21)
[2017-03-03] MEDS: HYZAAR 50/12.5 MG PO SCH (08:23)
[2017-03-03] MEDS: FOLIC ACID TAB 1 MG PO SCH (08:24)
[2017-03-03] MEDS: MUCINEX DM PO SCH ×2 (08:24→21:26)
[2017-03-03] MEDS: MOBIC TAB 15 MG PO SCH (08:24)
[2017-03-03] MEDS: K-DUR TAB 20 MEQ PO SCH (08:24)
[2017-03-03] MEDS: LEVAQUIN PREMIX IV 750 MG 750 MG/150 ML BAG IV SCH (08:25)
[2017-03-03] MEDS: TUSSIONEX PENNKINETIC SUSP PO SCH ×2 (08:25→21:26)
[2017-03-03] MEDS ORDERED: NS 100 ML IV 100 ML IV ONE (11:04)
[2017-03-03] MEDS ORDERED: TOBRAMYCIN SULFATE ONE (11:05)
[2017-03-03] MEDS: TOBRAMYCIN SULFATE 80 MG in NS 100 ML IV 100 ML IV SCH ×2 (11:39→21:26)
[2017-03-03] MEDS: CIPRO IV 400 MG PREMIX* 400 MG/200 ML IV.SOLN. IV SCH ×2 (12:39→21:25)
[2017-03-03] MEDS: ZyrTEC TAB 10 MG PO SCH (21:25)
[2017-03-04] MEDS: DUONEB 0.5 MG/3 MG NEB SCH ×4 (01:09→12:05)
[2017-03-04 05:15] LABS: BASOPHILS # (AUTO) 0.1 X10^3/uL (0.0-0.1); BASOPHILS % (AUTO) 0.9 % (0.2-1.0); EOSINOPHILS # (AUTO) 0.3 x10^3/uL (0.0-0.2); EOSINOPHILS % (AUTO) 4.1 % (0.9-2.9); HEMATOCRIT 30.5 % (36.0-47.0); HEMOGLOBIN 10.1 g/dL (12.0-16.0); LYMPHOCYTES # (AUTO) 1.2 X10^3/uL (1.3-2.9); LYMPHOCYTES % (AUTO) 14.7 % (21.0-51.0); MEAN CORPUSCULAR HEMOGLOBIN 26.4 pg (27.0-34.0); MEAN CORPUSCULAR HGB CONC 33.3 g/dL (33.0-35.0); MEAN CORPUSCULAR VOLUME 79.1 fL (80.0-100.0); MONOCYTES # (AUTO) 0.6 x10^3/uL (0.3-0.8); MONOCYTES % (AUTO) 7.7 % (0.0-13.0); NEUTROPHILS # (AUTO) 5.8 x10^3/uL (2.2-4.8); NEUTROPHILS % (AUTO) 72.6 % (42.0-75.0); PLATELET COUNT 348 X10^3/uL (150.0-450.0); RED BLOOD COUNT 3.85 X10^6/uL (3.5-5.4); RED CELL DISTRIBUTION WIDTH 15.8 % (11.6-16.5)
[2017-03-04 05:23] LABS: ALANINE AMINOTRANSFERASE 13 Units/L (12-78); ALBUMIN 2.9 g/dL (3.4-5.0); ALKALINE PHOSPHATASE 60 Units/L (46-116); ASPARTATE AMINO TRANSFERASE 12 Units/L (15-37); BLOOD UREA NITROGEN 10 mg/dL (7-18); CALCIUM 9.1 mg/dL (8.5-10.1); CARBON DIOXIDE 29.3 mmol/L (21-32); CHLORIDE 95 mmol/L (98-107); GLUCOSE 98 mg/dL (65-99); SODIUM 132 mmol/L (136-145); TOTAL PROTEIN 6.5 g/dL (6.4-8.2); eGFR BLACK RACES > 60 (>60); eGFR NON BLACK RACES > 60 (>60)
[2017-03-04] MEDS: NS 1/2 1000 ML IV 1,000 ML IV SCH (06:02)
[2017-03-04] MEDS ORDERED: NS 1/2 1000 ML IV 1,000 ML IV ONE (06:15)
--- NOTE | 2017-03-04 06:35 | RAD ---
HISTORY: Shortness of breath Study: Chest one view Comparison: March 03, 2017, March 02, 2017 Findings: The heart is enlarged. No congestive heart failure is noted. The aorta is mildly ectatic. The lungs appear free of acute alveolar infiltrates. There is some subsegmental atelectasis in the left lung b ase. Mild interstitial lung changes are present slightly more prominent on the right. IMPRESSION: Cardiomegaly without congestive heart failure Subsegmental atelectasis left lung base. Interstitial lung changes Reported By:
[2017-03-04] MEDS: ALBUMIN HUMAN 25%- 100ML 100 ML IV SCH (09:38)
[2017-03-04] MEDS: MUCINEX DM PO SCH (09:41)
[2017-03-04] MEDS: FOLIC ACID TAB 1 MG PO SCH (09:41)
[2017-03-04] MEDS: TUSSIONEX PENNKINETIC SUSP PO SCH (09:41)
[2017-03-04] MEDS: HYZAAR 50/12.5 MG PO SCH (09:42)
[2017-03-04] MEDS: K-DUR TAB 20 MEQ PO SCH (09:42)
[2017-03-04] MEDS: MOBIC TAB 15 MG PO SCH (09:42)
[2017-03-04] MEDS: CIPRO IV 400 MG PREMIX* 400 MG/200 ML IV.SOLN. IV SCH (09:43)
[2017-03-04] MEDS: TOBRAMYCIN SULFATE 80 MG in NS 100 ML IV 100 ML IV SCH (12:18)
[2017-03-04 16:06] VITALS: BP 136/78
== END 2017-03-04 16:30 | disposition home or self-care (01) | DRG 194 ==
LOC: ER 09:35 → SUPCPDRO 09:35 → OBSVTOIN 14:30 → MED/SURG 14:30
PROVIDERS: ADMIT Internal Medicine; ATTEND Internal Medicine
DX: J18.8 Other pneumonia, unspecified organism (principal); J98.11 Atelectasis; R07.89 Other chest pain; M54.89 Other dorsalgia; I10 Essential (primary) hypertension; R94.31 Abnormal electrocardiogram [ECG] [EKG]; R06.02 Shortness of breath; E87.6 Hypokalemia; I51.7 Cardiomegaly; E83.42 Hypomagnesemia; B96.5 Pseudomonas (aeruginosa) (mallei) (pseudomallei) as the cause of diseases classified elsewhere; Z79.899 Other long term (current) drug therapy
CPT/HCPCS: 36415; 70450; 71010; 80053; 82550; 82553; 83735; 83880; 84132; 84484; 85025; 87040; 87070; 87077; 87116; 87186; 87205; 93005; 93010; 93306; 94640; 94760; 96365; 96374; 96375; 99284; A4222; P9047; J0713; J0744; J1956; J3260; J7620

== ENCOUNTER 2017-03-08 23:13 | Inpatient (IN) | payer OTHER ==
[2017-03-08 23:23] VITALS: BMI 27.1
[2017-03-08] MEDS ORDERED: NS 1000 ML 1,000 ML ONE (23:35)
[2017-03-08] MEDS ORDERED: NS 1000 ML 1,000 ML IV ONE (23:37)
[2017-03-09 00:01] LABS: BASOPHILS # (AUTO) 0.1 X10^3/uL (0.0-0.1); BASOPHILS % (AUTO) 1.2 % (0.2-1.0); EOSINOPHILS % (AUTO) 0.4 % (0.9-2.9); HEMATOCRIT 33.4 % (36.0-47.0); HEMOGLOBIN 11.3 g/dL (12.0-16.0); LYMPHOCYTES # (AUTO) 2.2 X10^3/uL (1.3-2.9); LYMPHOCYTES % (AUTO) 22.6 % (21.0-51.0); MEAN CORPUSCULAR HEMOGLOBIN 26.3 pg (27.0-34.0); MEAN CORPUSCULAR HGB CONC 33.9 g/dL (33.0-35.0); MEAN CORPUSCULAR VOLUME 77.5 fL (80.0-100.0); MONOCYTES # (AUTO) 0.9 x10^3/uL (0.3-0.8); MONOCYTES % (AUTO) 8.7 % (0.0-13.0); NEUTROPHILS # (AUTO) 6.7 x10^3/uL (2.2-4.8); NEUTROPHILS % (AUTO) 67.1 % (42.0-75.0); PLATELET COUNT 450 X10^3/uL (150.0-450.0); RED BLOOD COUNT 4.31 X10^6/uL (3.5-5.4); RED CELL DISTRIBUTION WIDTH 15.7 % (11.6-16.5); WHITE BLOOD COUNT 9.9 X10^3/uL (3.6-10.0)
[2017-03-09 00:07] LABS: BLOOD UREA NITROGEN 16 mg/dL (7-18); CARBON DIOXIDE 27.9 mmol/L (21-32); CHLORIDE 96 mmol/L (98-107); CREATININE 0.73 mg/dL (0.55-1.02); GLUCOSE 94 mg/dL (65-99); SODIUM 133 mmol/L (136-145); eGFR BLACK RACES > 60 (>60); eGFR NON BLACK RACES > 60 (>60)
[2017-03-09] MEDS ORDERED: POTASSIUM CHLORIDE LIQ 20 MEQ UDC PO ONE (00:26)
[2017-03-09 00:32] LABS: ALANINE AMINOTRANSFERASE 17 Units/L (12-78); ALBUMIN 3.3 g/dL (3.4-5.0); ALKALINE PHOSPHATASE 72 Units/L (46-116); ASPARTATE AMINO TRANSFERASE 13 Units/L (15-37); COR CA(FOR HYPOALB) 9.6 mg/dL (8.5-10.1); TOTAL PROTEIN 7.3 g/dL (6.4-8.2)
[2017-03-09] MEDS ORDERED: POTASSIUM CHLORIDE LIQ 20 MEQ UDC ONE (00:34)
--- NOTE | 2017-03-09 00:46 | RAD ---
EXAM: Chest X-ray INDICATION: Cough COMPARISION: Prior exam from March 04, 2017 TECHNIQUE: Single view FINDINGS: The heart is mildly enlarged and there is central vascular congestion. The interstitial markings are prominent bilaterally. No pneumothorax or pleural effusion. No focal lung parenchymal consolidation identified. The regional skeleton is intact. IMPRESSION: Findings are most characteristic of changes associated congestive heart failure. There is cardiomega ly, central vascular congestion, and interstitial edema. Reported By:
[2017-03-09] MEDS ORDERED: LASIX IVP ONE ×2 (01:12→01:15)
--- NOTE | 2017-03-09 01:14 | DR.GENAD ---
HPI - PCP Primary Care Physician: Dr Mosley - Complaint/Symptoms Chief Complaint Doctors Comments: Patient states that she was discharged from the hopital last week when she was treated for pneumonia. She presents tonight with complaint of dyspnea, orthopnea and shortness of breath when walking across the room..She states that her lower extremitiies were swollen a lot 2-3 days ago. She denies fever, vomiting or diarrhea. Chief Complaint:: CONGESTED NOSE, "LIGHTHEADED WHEN STANDING", DIZZY, HEADACHE, SORE THROAT. DENIES FEVER. Self Treatment fo Chief Complaint: INHALER NOT HELPING - Source History Provided: Patient - Mode of Arrival Mode of Arrival: Ambulatory - Timing Onset of Chief Complaint: 03/08/17 PMH - PMH Past Medical History: Yes Past Medical History: Hypertension Past Medical History Comment: PT HOSPITALIZED FOR PENUMONIA TWICE Past Surgical History: Yes Surgical History: 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 Past Surgical History Comment: DOESN'T REMEMBER DATE - Family History History of Family Medical Conditions: No - Social History Do you use any recreational Drugs:: No - infectious screening Have you traveled outside the country in the last 6 months?: No ROS - Review of Systems Eyes: No Symptoms Reported ENTM: No Symptoms Reported Respiratoy: No Symptoms Reported Cardiovascular: No Symptoms Reported Gastrointestinal/Abdominal: No Symptoms Reported Genitourinary: No Symptoms Reported Neurological: No Symptoms Reported Musculoskeletal: No Symptoms Reported Integumentary: No Symptoms Reported Hematologic/Lymphatic: No Symptoms Reported Endocrine: No Symptoms Reported Psychiatric: No Symptoms Reported All Other Systems: Reviewed and Negative PE - Vital Signs Vitals: Temperature 97.9 F Pulse Rate 95 Respiratory Rate 18 Blood Pressure [Left Arm] 136/78 Blood Pressure [Right Arm] 136/74 Blood Pressure 186/94 O2 Sat by Pulse Oximetry 97 - General Limitations: No Limitations General Appearance: Alert, In Distress - Head Head Exam: Normal Inspection, Atraumatic - Eyes Eye exam: Normal Appearance, PERRL, EOMI - ENT ENT Exam: Normal Exam External Ear Exam: Normal External Inspection TM/Canal Exam: Bilateral Normal Nose Exam: Normal Nose Exam Mouth Exam: Normal Inspection Throat Exam: Normal Inspection - Neck Neck Exam: Normal Inspection, Full ROM - Chest Chest Inspection: Other (problems with breathing) - Respiratory Respiratory Exam: Normal Lung Sounds Bilat Respiratory Exam: Bilateral Clear to Auscultation - Cardiovascular Cardiovascular Exam: Regular Rate, Normal Rhythm - Abdominal Exam Abdominal Exam: Normal Inspection, Normal Bowel Sounds Abdominal Tenderness: negative: RUQ, RLQ, LUQ, LLQ, Epigastrium, Suprapubic, Diffuse, Mild, Moderate, Severe, Other - Extremities Extremities Exam: Edema (1-2+ pitting ) - Back Back Exam: Normal Inspection, Full ROM - Neurologic Neurological Exam: Alert, Oriented X3, CN II-XII Intact - Psychiatric Psychiatric Exam: Normal Affect, Normal Mood - Skin Skin Exam: Warm, Dry, Intact Course - Treatment Treatment: Patient diuresed 3L fluid with lasix 40mg - Reevaluation 1st: Improved - Consultation Called: 07:30 (Dr De Jesus agreed to admit for further management) ROR - Labs Reviewed Laboratory Results Reviewed?: Yes (low sod, low potassium) Result Diagrams: 03/08/17 23:45 03/09/17 06:20 Laboratory: WBC 9.9 X10^3/uL (3.6-10.0) 03/08/17 23:45 RBC 4.31 X10^6/uL (3.5-5.4) 03/08/17 23:45 Hgb 11.3 g/dL (12.0-16.0) L 03/08/17 23:45 Hct 33.4 % (36.0-47.0) L 03/08/17 23:45 MCV 77.5 fL (80.0-100.0) L 03/08/17 23:45 MCH 26.3 pg (27.0-34.0) L 03/08/17 23:45 MCHC 33.9 g/dL (33.0-35.0) 03/08/17 23:45 RDW 15.7 % (11.6-16.5) 03/08/17 23:45 Plt Count 450 X10^3/uL (150.0-450.0) 03/08/17 23:45 MPV 7.0 fL (7.4-11.0) L 03/08/17 23:45 Neut % 67.1 % (42.0-75.0) 03/08/17 23:45 Lymph % 22.6 % (21.0-51.0) 03/08/17 23:45 [place] % 8.7 % (0.0-13.0) 03/08/17 23:45 Eos % 0.4 % (0.9-2.9) L 03/08/17 23:45 Baso % 1.2 % (0.2-1.0) H 03/08/17 23:45 Neut # 6.7 x10^3/uL (2.2-4.8) H 03/08/17 23:45 Lymph # 2.2 X10^3/uL (1.3-2.9) 03/08/17 23:45 [place] # 0.9 x10^3/uL (0.3-0.8) H 03/08/17 23:45 Eos # 0.0 x10^3/uL (0.0-0.2) 03/08/17 23:45 Baso # 0.1 X10^3/uL (0.0-0.1) 03/08/17 23:45 Absolute Nucleated RBC 0.0 /100WBC 03/08/17 23:45 Sample Site R rad 03/09/17 01:45 ABG pH 7.520 (7.35-7.45) H 03/09/17 01:45 ABG pCO2 34.0 mmHg (35.0-45.0) L 03/09/17 01:45 ABG pO2 94.0 mmHg (80.0-100.0) 03/09/17 01:45 ABG HCO3 27.8 mmol/L (22-26) H 03/09/17 01:45 ABG O2 Saturation 98.0 % (90-100) 03/09/17 01:45 ABG Base Excess 5.0 mmol/L (-2.0-2.0) H 03/09/17 01:45 Luis Test Pos 03/09/17 01:45 A-a Gradient 63.0 mmHg 03/09/17 01:45 FiO2 28.000 03/09/17 01:45 Blood Gas Comments Cem well, afh 03/09/17 01:45 Sodium 140 mmol/L (136-145) 03/09/17 06:20 Corrected Sodium TNP 03/09/17 06:20 Potassium 3.0 mmol/L (3.5-5.1) L* 03/09/17 06:20 Chloride 101 mmol/L (98-107) 03/09/17 06:20 Carbon Dioxide 31.4 mmol/L (21-32) 03/09/17 06:20 BUN 12 mg/dL (7-18) 03/09/17 06:20 Creatinine 0.80 mg/dL (0.55-1.02) 03/09/17 06:20 Est GFR (MDRD) Af Amer > 60 (>60) 03/09/17 06:20 Est GFR (MDRD) Non-Af > 60 (>60) 03/09/17 06:20 Glucose 91 mg/dL (65-99) 03/09/17 06:20 Calcium 9.5 mg/dL (8.5-10.1) 03/09/17 06:20 Corrected Calcium 9.6 mg/dL (8.5-10.1) 03/08/17 23:45 Total Bilirubin 0.40 mg/dL (0.2-1.0) 03/08/17 23:45 AST 13 Units/L (15-37) L 03/08/17 23:45 ALT 17 Units/L (12-78) 03/08/17 23:45 Alkaline Phosphatase 72 Units/L (46-116) 03/08/17 23:45 Creatine Kinase 68 Units/L (26-192) 03/08/17 22:45 CK-MB (CK-2) < 1.0 ng/mL (0-4.0) 03/08/17 22:45 CK/CKMB % Calc 1.5 % (<4) 03/08/17 22:45 Troponin I 0.02 ng/mL (0-1.5) 03/08/17 22:45 B-Natriuretic Peptide 63.2 pg/mL (0-79) 03/08/17 22:45 Total Protein 7.3 g/dL (6.4-8.2) 03/08/17 23:45 Albumin 3.3 g/dL (3.4-5.0) L 03/08/17 23:45 Globulin 4.0 g/dL (2.5-4.5) 03/08/17 23:45 Albumin/Globulin Ratio 0.8 Ratio (1.1-2.1) L 03/08/17 23:45 Specimen Type Catherized urine 03/09/17 01:25 Urine Color Pale yellow (YELLOW) 03/09/17 01:25 Urine Appearance Clear (CLEAR) 03/09/17 01:25 Urine pH 7.0 (5.0 - 8.0) 03/09/17 01:25 Ur Specific [place] 1.015 (1.000-1.030) 03/09/17 01:25 Urine Protein Negative (NEGATIVE) 03/09/17 01:25 Urine Glucose (UA) Negative (NEGATIVE) 03/09/17 01:25 Urine Ketones Negative (NEGATIVE) 03/09/17 01:25 Urine Occult Blood 1+ (NEGATIVE) 03/09/17 01:25 Urine Nitrite Negative (NEGATIVE) 03/09/17 01:25 Urine Bilirubin Negative (NEGATIVE) 03/09/17 01:25 Urine Urobilinogen Normal (NORMAL) 03/09/17 01:25 Ur Leukocyte Esterase Negative (NEGATIVE) 03/09/17 01:25 Urine RBC 0-3 /HPF (NEGATIVE) 03/09/17 01:25 Urine WBC 0-3 /HPF (NEGATIVE) 03/09/17 01:25 Ur Squamous Epith Cells Rare /HPF (NEGATIVE) 03/09/17 01:25 Urine Bacteria Negative /HPF (NEGATIVE) 03/09/17 01:25 Ur Culture Indicated? No/not indicated 03/09/17 01:25 - XRAY XRAY Interpreted by: Radiologist - EKG Compared to prior EKG Dated: 02/27/17 (No change) [place]: Normal Rhythm: NSR Block: RBBB, IVCD Hypertrophy: None ST: Normal - Diagnosis Discharge Problem: Pulmonary edema with systolic CHF, NYHA class 3 - Discharge Plan Condition: Stable - Follow ups/Referrals Follow ups/Referrals: Vasyl Mosley [Primary Care Provider] - 3 days - Instructions
[2017-03-09] MEDS ORDERED: MORPHINE SULFATE INJ 2 MG IVP ONE (01:22)
[2017-03-09 01:31] LABS: B-TYPE NATRIURETIC PEPTIDE 63.2 pg/mL (0-79)
[2017-03-09 01:34] LABS: CKMB % 1.5 % (<4); CREATINE KINASE 68 Units/L (26-192); CREATINE KINASE MB < 1.0 ng/mL (0-4.0); TROPONIN I 0.02 ng/mL (0-1.5)
[2017-03-09 01:44] LABS: BILIRUBIN,URINE NEGATIVE (NEGATIVE); BLOOD/HEMOGLOBIN,URINE 1+ (NEGATIVE); GLUCOSE, URINE NEGATIVE (NEGATIVE); KETONES,URINE NEGATIVE (NEGATIVE); LEUKOCYTE ESTERASE ,URINE NEGATIVE (NEGATIVE); NITRITES,URINE NEGATIVE (NEGATIVE); PROTEIN,URINE NEGATIVE (NEGATIVE); UROBILINOGEN,URINE NORMAL (NORMAL)
[2017-03-09] MEDS ORDERED: MORPHINE SULFATE INJ 2 MG ONE (01:47)
[2017-03-09 01:49] LABS: APPEARANCE,URINE CLEAR (CLEAR); BACTERIA,URINE NEGATIVE /HPF (NEGATIVE); COLOR,URINE PALE YELLOW (YELLOW); RBC,URINE 0-3 /HPF (NEGATIVE); SQUAMOUS EPITHELIAL CELL,UR RARE /HPF (NEGATIVE)
[2017-03-09 01:56] LABS: ABG ALLEN TEST POS; ABG HCO3 27.8 mmol/L (22-26)
[2017-03-09 06:42] LABS: BLOOD UREA NITROGEN 12 mg/dL (7-18); CALCIUM 9.5 mg/dL (8.5-10.1); CARBON DIOXIDE 31.4 mmol/L (21-32); CHLORIDE 101 mmol/L (98-107); GLUCOSE 91 mg/dL (65-99); SODIUM 140 mmol/L (136-145); eGFR BLACK RACES > 60 (>60); eGFR NON BLACK RACES > 60 (>60)
[2017-03-09] MEDS ORDERED: K-LYTE EFFERVESCENT PO ONE (07:07)
[2017-03-09] MEDS ORDERED: NS 1000 ML 1,000 ML IV SCH (08:00)
[2017-03-10 05:34] LABS: ALANINE AMINOTRANSFERASE 15 Units/L (12-78); ALBUMIN 2.9 g/dL (3.4-5.0); ALKALINE PHOSPHATASE 68 Units/L (46-116); ASPARTATE AMINO TRANSFERASE 16 Units/L (15-37); BLOOD UREA NITROGEN 19 mg/dL (7-18); CALCIUM 8.9 mg/dL (8.5-10.1); CARBON DIOXIDE 32.1 mmol/L (21-32); CHLORIDE 99 mmol/L (98-107); COR CA(FOR HYPOALB) 9.8 mg/dL (8.5-10.1); CREATININE 0.82 mg/dL (0.55-1.02); GLUCOSE 97 mg/dL (65-99); SODIUM 137 mmol/L (136-145); TOTAL PROTEIN 6.7 g/dL (6.4-8.2); eGFR BLACK RACES > 60 (>60); eGFR NON BLACK RACES > 60 (>60)
[2017-03-10 05:36] LABS: BASOPHILS # (AUTO) 0.1 X10^3/uL (0.0-0.1); BASOPHILS % (AUTO) 1.1 % (0.2-1.0); EOSINOPHILS # (AUTO) 0.1 x10^3/uL (0.0-0.2); EOSINOPHILS % (AUTO) 1.5 % (0.9-2.9); HEMOGLOBIN 11.9 g/dL (12.0-16.0); LYMPHOCYTES # (AUTO) 1.6 X10^3/uL (1.3-2.9); LYMPHOCYTES % (AUTO) 16.1 % (21.0-51.0); MEAN CORPUSCULAR HGB CONC 33.9 g/dL (33.0-35.0); MEAN CORPUSCULAR VOLUME 76.8 fL (80.0-100.0); MEAN PLATELET VOLUME 7.5 fL (7.4-11.0); MONOCYTES % (AUTO) 9.7 % (0.0-13.0); NEUTROPHILS # (AUTO) 7.2 x10^3/uL (2.2-4.8); NEUTROPHILS % (AUTO) 71.6 % (42.0-75.0); PLATELET COUNT 484 X10^3/uL (150.0-450.0); RED BLOOD COUNT 4.56 X10^6/uL (3.5-5.4); RED CELL DISTRIBUTION WIDTH 15.9 % (11.6-16.5); WHITE BLOOD COUNT 10.1 X10^3/uL (3.6-10.0)
[2017-03-10] MEDS: MAG-OX TAB PO SCH ×2 (08:24→16:22)
--- NOTE | 2017-03-10 10:20 | RAD ---
HISTORY: CHF Study: Two-view Chest Comparison: March 09, 2017 Findings: The trachea is midline . There is no widening or shift of mediastinum. The heart is top normal size. A decrease in cardiac size is noted since the previous study . . There is minimal blunting of the l eft costophrenic angle consistent with small left pleural effusion appear The lungs are adequately a erated. Osseous structures are within normal limits for the patient's age There is no evidence of ac tive inflammatory disease.. The previously identified pleural effusion on the right minor fissure casas s cleared. IMPRESSION: The heart is top normal size. Small left pleural effusion. Findings are consistent with resolving co ngestive heart failure. Reported By:
[2017-03-10] MEDS ORDERED: GLYCERIN OP PRN (15:09)
[2017-03-10] MEDS ORDERED: [UNRECOGNIZED DRUG - OTHER] OP PRN (15:09)
[2017-03-10] MEDS ORDERED: CARBOXYMETHYLCELLULOS OP PRN (15:09)
[2017-03-10] MEDS ORDERED: ARTIFICIAL TEARS DROPS AFFEYE PRN (15:37)
[2017-03-10] MEDS: LASIX IVP SCH ×2 (16:22→22:31)
[2017-03-10] MEDS ORDERED: CETIRIZINE HCL PO SCH (21:00)
[2017-03-10] MEDS: MICRO K EXTEN CAP 10 MEQ PO SCH (21:01)
[2017-03-10] MEDS: ZyrTEC TAB 10 MG PO SCH (21:01)
[2017-03-11 05:23] LABS: BASOPHILS # (AUTO) 0.1 X10^3/uL (0.0-0.1); BASOPHILS % (AUTO) 0.8 % (0.2-1.0); EOSINOPHILS # (AUTO) 0.3 x10^3/uL (0.0-0.2); EOSINOPHILS % (AUTO) 3.9 % (0.9-2.9); HEMATOCRIT 36.1 % (36.0-47.0); LYMPHOCYTES % (AUTO) 23.7 % (21.0-51.0); MEAN CORPUSCULAR HEMOGLOBIN 25.8 pg (27.0-34.0); MEAN CORPUSCULAR HGB CONC 33.3 g/dL (33.0-35.0); MEAN CORPUSCULAR VOLUME 77.4 fL (80.0-100.0); MEAN PLATELET VOLUME 7.6 fL (7.4-11.0); MONOCYTES # (AUTO) 0.7 x10^3/uL (0.3-0.8); NEUTROPHILS # (AUTO) 5.2 x10^3/uL (2.2-4.8); NEUTROPHILS % (AUTO) 62.6 % (42.0-75.0); PLATELET COUNT 457 X10^3/uL (150.0-450.0); RED BLOOD COUNT 4.66 X10^6/uL (3.5-5.4); RED CELL DISTRIBUTION WIDTH 15.8 % (11.6-16.5); WHITE BLOOD COUNT 8.3 X10^3/uL (3.6-10.0)
[2017-03-11 05:30] LABS: ALANINE AMINOTRANSFERASE 14 Units/L (12-78); ALBUMIN 2.9 g/dL (3.4-5.0); ALKALINE PHOSPHATASE 70 Units/L (46-116); ASPARTATE AMINO TRANSFERASE 13 Units/L (15-37); BLOOD UREA NITROGEN 17 mg/dL (7-18); CARBON DIOXIDE 31.3 mmol/L (21-32); CHLORIDE 99 mmol/L (98-107); COR CA(FOR HYPOALB) 9.9 mg/dL (8.5-10.1); CREATININE 0.81 mg/dL (0.55-1.02); GLUCOSE 85 mg/dL (65-99); MAGNESIUM 1.8 mg/dL (1.7-2.9); SODIUM 137 mmol/L (136-145); TOTAL PROTEIN 6.8 g/dL (6.4-8.2); eGFR BLACK RACES > 60 (>60); eGFR NON BLACK RACES > 60 (>60)
[2017-03-11 05:52] LABS: HYPOCHROMASIA SLIGHT; PLATELET MORPHOLOGY COMMENT NORMAL (NORMAL)
[2017-03-11] MEDS ORDERED: K-DUR TAB 20 MEQ PO PRN (07:02)
[2017-03-11] MEDS ORDERED: K-LYTE EFFERVESCENT PO PRN (07:02)
[2017-03-11] MEDS ORDERED: K-RIDER 10 MEQ/NS 100 ML 10 MEQ/100 ML BAG IV PRN (07:02)
--- NOTE | 2017-03-11 07:09 | RAD ---
HISTORY: Congestive heart failure Study: Chest AP portable Comparison: March 10, 2017 Findings: The heart remains enlarged. No definite congestive heart failure is present on today's examination. The aorta is ectatic. The moncho are normal. Interstitial lung changes are present. No alveolar infilt rates or alveolar edema or pleural effusions are identified. The bony thorax is unremarkable. IMPRESSION: Cardiomegaly without definite congestive heart failure on today's examination Interstitial lung changes, stable Reported By:
[2017-03-11] MEDS: LASIX IVP SCH ×3 (07:14→17:31)
[2017-03-11] MEDS: MAG-OX TAB PO SCH ×2 (07:15→17:31)
[2017-03-11] MEDS ORDERED: PREDNISONE TAB 5 MG PO SCH (09:00)
[2017-03-11] MEDS ORDERED: PATIENT'S HOME MEDICATION (Losartan/Hydrochlorothiazide [Losartan-Hctz 100-25 Mg Tab] 1 TA PO SCH (09:00)
[2017-03-11] MEDS: PREDNISONE TAB 10 MG PO SCH (09:08)
[2017-03-11] MEDS: POTASSIUM CHLORIDE LIQ 20 MEQ UDC PO PRN (09:08)
[2017-03-11] MEDS: HYZAAR 50/12.5 MG PO SCH (09:09)
[2017-03-11] MEDS: MICRO K EXTEN CAP 10 MEQ PO SCH ×2 (09:09→20:44)
[2017-03-11] MEDS: CIPRO IV 400 MG PREMIX* 400 MG/200 ML IV.SOLN. IV SCH ×2 (10:34→20:44)
[2017-03-11] MEDS: SOLU-Medrol 40 MG VIAL IVP SCH ×3 (10:34→22:04)
[2017-03-11] MEDS: DUONEB 0.5 MG/3 MG NEB SCH ×3 (13:40→20:51)
--- NOTE | 2017-03-11 15:15 | PCM.PROG ---
Progress Note - Progress Note for Day of Date: 03/11/17 - Subjective Subjective: IS A 76 YEAR OLD PATIENT OF OURS WHO WAS ADMITTED FOR CHF WITH PULMONARY EDEMA. SHE IS ALERT AND ORIENTED, LYING IN BED ON MORNING ROUNDS. SHE IS NOTED WITH COMPLAINTS OF SHORTNESS OF BREATH AND PRODUCTIVE SPUTUM. LUNGS ARE NOTED WITH WHEEZING BILATERALLY ON AUSCULTATION. VITALS THIS AM ARE 98.5-81-22-98%-131/67. CMP WNL, CMP REPORTS POTASSIUM 3.3, AST 13, ALBUMIN 2.9. CHEST XRAY REPORTED CARDIOMEGALY WITHOUT DEFINITE CHF, INTERSTITIAL LUNG CHANGES STABLE. WE WILL OBTAIN A CT CHEST WITH CONTRAST, OBTAIN SPUTUM CULTURES, START DUONEBS QID, SOLUMEDROL 40MG IV Q8H, CIPRO 400MG IV Q12H. WE PLAN TO RECHECK LABS AND FOLLOW UP WITH PATIENT IN AM. - Past Medical Family Social History Past Med/Fam/Surg Hx: No changes since H&P Allergies: Allergies No Known Drug Allergies Allergy (Verified 03/09/17 07:54) - Review of Systems ROS: No change since H&P - Physical Exam Oriented: Normal Eyes: Normal Ear: Normal Nose: Normal Throat: Normal Respiratory: Right, Left, Wheezes Cardiovascular: Normal : Normal Auscultation: Bowel Sounds: Normal Palpation: Normal Tenderness: Normal Skin: Normal Musculoskeletal: Normal Psychiatric: Normal Mood Description: Calm Affect: Normal Speech Pattern: Clear, Appropriate - Laboratory and Diagnostics Result Diagrams: 03/11/17 03:10 03/11/17 11:13 Labs: Laboratory WBC 8.3 X10^3/uL (3.6-10.0) 03/11/17 03:10 RBC 4.66 X10^6/uL (3.5-5.4) 03/11/17 03:10 Hgb 12.0 g/dL (12.0-16.0) 03/11/17 03:10 Hct 36.1 % (36.0-47.0) 03/11/17 03:10 MCV 77.4 fL (80.0-100.0) L 03/11/17 03:10 MCH 25.8 pg (27.0-34.0) L 03/11/17 03:10 MCHC 33.3 g/dL (33.0-35.0) 03/11/17 03:10 RDW 15.8 % (11.6-16.5) 03/11/17 03:10 Plt Count 457 X10^3/uL (150.0-450.0) H 03/11/17 03:10 Plt Count Comment Increased (ADEQUATE) A 03/11/17 03:10 MPV 7.6 fL (7.4-11.0) 03/11/17 03:10 Neut % 62.6 % (42.0-75.0) 03/11/17 03:10 Lymph % 23.7 % (21.0-51.0) 03/11/17 03:10 [place] % 9.0 % (0.0-13.0) 03/11/17 03:10 Eos % 3.9 % (0.9-2.9) H 03/11/17 03:10 Baso % 0.8 % (0.2-1.0) 03/11/17 03:10 Neut # 5.2 x10^3/uL (2.2-4.8) H 03/11/17 03:10 Lymph # 2.0 X10^3/uL (1.3-2.9) 03/11/17 03:10 [place] # 0.7 x10^3/uL (0.3-0.8) 03/11/17 03:10 Eos # 0.3 x10^3/uL (0.0-0.2) H 03/11/17 03:10 Baso # 0.1 X10^3/uL (0.0-0.1) 03/11/17 03:10 Absolute Nucleated RBC 0.1 /100WBC 03/11/17 03:10 Plt Morphology Comment Normal (NORMAL) 03/11/17 03:10 RBC Morphology Abnormal (NORMAL) A 03/11/17 03:10 Hypochromasia Slight A 03/11/17 03:10 Sample Site R rad 03/09/17 01:45 ABG pH 7.520 (7.35-7.45) H 03/09/17 01:45 ABG pCO2 34.0 mmHg (35.0-45.0) L 03/09/17 01:45 ABG pO2 94.0 mmHg (80.0-100.0) 03/09/17 01:45 ABG HCO3 27.8 mmol/L (22-26) H 03/09/17 01:45 ABG O2 Saturation 98.0 % (90-100) 03/09/17 01:45 ABG Base Excess 5.0 mmol/L (-2.0-2.0) H 03/09/17 01:45 Luis Test Pos 03/09/17 01:45 A-a Gradient 63.0 mmHg 03/09/17 01:45 FiO2 28.000 03/09/17 01:45 Blood Gas Comments Cem well, afh 03/09/17 01:45 Sodium 137 mmol/L (136-145) 03/11/17 03:10 Corrected Sodium TNP 03/11/17 03:10 Potassium 3.3 mmol/L (3.5-5.1) L 03/11/17 11:13 Chloride 99 mmol/L (98-107) 03/11/17 03:10 Carbon Dioxide 31.3 mmol/L (21-32) 03/11/17 03:10 BUN 17 mg/dL (7-18) 03/11/17 03:10 Creatinine 0.81 mg/dL (0.55-1.02) 03/11/17 03:10 Est GFR (MDRD) Af Amer > 60 (>60) 03/11/17 03:10 Est GFR (MDRD) Non-Af > 60 (>60) 03/11/17 03:10 Glucose 85 mg/dL (65-99) 03/11/17 03:10 Calcium 9.0 mg/dL (8.5-10.1) 03/11/17 03:10 Corrected Calcium 9.9 mg/dL (8.5-10.1) 03/11/17 03:10 Magnesium 1.8 mg/dL (1.7-2.9) 03/11/17 03:10 Total Bilirubin 0.80 mg/dL (0.2-1.0) 03/11/17 03:10 AST 13 Units/L (15-37) L 03/11/17 03:10 ALT 14 Units/L (12-78) 03/11/17 03:10 Alkaline Phosphatase 70 Units/L (46-116) 03/11/17 03:10 Creatine Kinase 68 Units/L (26-192) 03/08/17 22:45 CK-MB (CK-2) < 1.0 ng/mL (0-4.0) 03/08/17 22:45 CK/CKMB % Calc 1.5 % (<4) 03/08/17 22:45 Troponin I 0.02 ng/mL (0-1.5) 03/08/17 22:45 B-Natriuretic Peptide 63.2 pg/mL (0-79) 03/08/17 22:45 Total Protein 6.8 g/dL (6.4-8.2) 03/11/17 03:10 Albumin 2.9 g/dL (3.4-5.0) L 03/11/17 03:10 Globulin 3.9 g/dL (2.5-4.5) 03/11/17 03:10 Albumin/Globulin Ratio 0.7 Ratio (1.1-2.1) L 03/11/17 03:10 Specimen Type Catherized urine 03/09/17 01:25 Urine Color Pale yellow (YELLOW) 03/09/17 01:25 Urine Appearance Clear (CLEAR) 03/09/17 01:25 Urine pH 7.0 (5.0 - 8.0) 03/09/17 01:25 Ur Specific [place] 1.015 (1.000-1.030) 03/09/17 01:25 Urine Protein Negative (NEGATIVE) 03/09/17 01:25 Urine Glucose (UA) Negative (NEGATIVE) 03/09/17 01:25 Urine Ketones Negative (NEGATIVE) 03/09/17 01:25 Urine Occult Blood 1+ (NEGATIVE) 03/09/17 01:25 Urine Nitrite Negative (NEGATIVE) 03/09/17 01:25 Urine Bilirubin Negative (NEGATIVE) 03/09/17 01:25 Urine Urobilinogen Normal (NORMAL) 03/09/17 01:25 Ur Leukocyte Esterase Negative (NEGATIVE) 03/09/17 01:25 Urine RBC 0-3 /HPF (NEGATIVE) 03/09/17 01:25 Urine WBC 0-3 /HPF (NEGATIVE) 03/09/17 01:25 Ur Squamous Epith Cells Rare /HPF (NEGATIVE) 03/09/17 01:25 Urine Bacteria Negative /HPF (NEGATIVE) 03/09/17 01:25 Ur Culture Indicated? No/not indicated 03/09/17 01:25 - Plan (1) Pulmonary edema with congestive heart failure Status: Acute Plan: START DUONEBS, START SOLU-MEDROL 40MG IV Q8H, CONTINUE LASIX 20MG IVP BID , CONTINUE TO MONITOR LABS AND CHEST XRAY (2) Hypertension Status: Acute Qualifiers: Hypertension type: essential hypertension Qualified Code(s): I10 - Essential (primary) hypertension Plan: CONTINUE HYZAAR, CONTINUE TO MONITOR (3) Hypokalemia Status: Acute Plan: CONTINUE POTASSIUM PROTOCOL, CONTINUE TO MONITOR (4) Hypomagnesemia Status: Acute Plan: CONTINUE MAG-OX, CONTINUE TO MONITOR
[2017-03-11] MEDS ORDERED: NS 100 ML IV 100 ML IV ONE (15:36)
--- NOTE | 2017-03-11 16:40 | CT ---
CT CHEST WITH IV CONTRAST HISTORY: Pulmonary edema and chronic cough. Comparison: 03/07/2012 Technique: Multiple axial images of the chest were obtained from the thoracic inlet to the upper abd omen after the administration of IV contrast.Dose reduction techniques including Automated Exposure Control (AEC) and adjustment of mA and kV were utlized. Findings: The heart is normal in size. No pericardial effusion. No suspicious mediastinal or axillary lymph n odes. Although not optimized to detect pulmonary embolism, no large central pulmonary emboli are see n. No focal consolidations, pleural effusions or pneumothorax. Redemonstration of bronchiectasis with a rchitectural distortion primarily in the right middle lobe medially as well as the dependent portion of the right upper lobe with some more nodular and consolidative opacity extending into the right l marcelino apex. This is essentially unchanged since 10/07. Airways are patent. No suspicious pulmonary nod ules or masses. Limited images of the upper abdomen are unremarkable. No aggressive osseous lesions. IMPRESSION: 1. Findings as above that is consistent with a chronic infectious process involving primarily the r ight lung. Primary consideration would be a chronic mycobacterial infection such as WALTER . Reported By:
[2017-03-11] MEDS: ZyrTEC TAB 10 MG PO SCH (20:44)
[2017-03-12] MEDS ORDERED: TYLENOL 325 MG TAB PO PRN (03:05)
[2017-03-12 05:21] LABS: ALANINE AMINOTRANSFERASE 14 Units/L (12-78); ALKALINE PHOSPHATASE 68 Units/L (46-116); ASPARTATE AMINO TRANSFERASE 11 Units/L (15-37); BASOPHILS % (AUTO) 0.1 % (0.2-1.0); BLOOD UREA NITROGEN 19 mg/dL (7-18); CALCIUM 8.9 mg/dL (8.5-10.1); CARBON DIOXIDE 31.4 mmol/L (21-32); CHLORIDE 96 mmol/L (98-107); COR CA(FOR HYPOALB) 9.7 mg/dL (8.5-10.1); COR NA(FOR HYPERGLY) 135 mmol/L (136-145); CREATININE 0.85 mg/dL (0.55-1.02); GLUCOSE 157 mg/dL (65-99); HEMATOCRIT 33.5 % (36.0-47.0); HEMOGLOBIN 11.4 g/dL (12.0-16.0); LYMPHOCYTES # (AUTO) 0.8 X10^3/uL (1.3-2.9); LYMPHOCYTES % (AUTO) 6.5 % (21.0-51.0); MAGNESIUM 2.1 mg/dL (1.7-2.9); MEAN CORPUSCULAR HEMOGLOBIN 25.8 pg (27.0-34.0); MEAN PLATELET VOLUME 7.5 fL (7.4-11.0); MONOCYTES # (AUTO) 0.1 x10^3/uL (0.3-0.8); MONOCYTES % (AUTO) 1.1 % (0.0-13.0); NEUTROPHILS # (AUTO) 11.1 x10^3/uL (2.2-4.8); NEUTROPHILS % (AUTO) 92.3 % (42.0-75.0); PLATELET COUNT 484 X10^3/uL (150.0-450.0); RED CELL DISTRIBUTION WIDTH 15.7 % (11.6-16.5); SODIUM 134 mmol/L (136-145); eGFR BLACK RACES > 60 (>60); eGFR NON BLACK RACES > 60 (>60)
[2017-03-12] MEDS: SOLU-Medrol 40 MG VIAL IVP SCH ×3 (05:25→21:05)
[2017-03-12] MEDS: POTASSIUM CHLORIDE LIQ 20 MEQ UDC PO PRN (05:59)
[2017-03-12 06:02] LABS: HYPOCHROMASIA SLIGHT; PLATELET MORPHOLOGY COMMENT NORMAL (NORMAL)
[2017-03-12] MEDS: MAG-OX TAB PO SCH ×2 (06:23→16:37)
[2017-03-12] MEDS: LASIX IVP SCH ×2 (06:23→16:37)
[2017-03-12] MEDS: MICRO K EXTEN CAP 10 MEQ PO SCH ×2 (08:50→21:05)
[2017-03-12] MEDS: PREDNISONE TAB 10 MG PO SCH (08:50)
[2017-03-12] MEDS: HYZAAR 50/12.5 MG PO SCH (08:50)
[2017-03-12] MEDS: DUONEB 0.5 MG/3 MG NEB SCH ×4 (09:04→20:19)
[2017-03-12] MEDS: CIPRO IV 400 MG PREMIX* 400 MG/200 ML IV.SOLN. IV SCH ×2 (09:05→21:05)
--- NOTE | 2017-03-12 14:12 | PCM.PROG ---
Progress Note - Progress Note for Day of Date: 03/12/17 - Subjective Subjective: IS A 76 YEAR OLD PATIENT OF OURS WHO WAS ADMITTED FOR CHF WITH PULMONARY EDEMA. SHE IS ALERT AND ORIENTED, SITTING UP IN CHAIR ON MORNING ROUNDS. SHE CONTINUES WITH COMPLAINTS OF SHORTNESS OF BREATH AND PRODUCTIVE SPUTUM. LUNGS ARE NOTED WITH WHEEZING BILATERALLY ON AUSCULTATION. VITALS THIS AM ARE 98.5-89-20-91%-126/65. CMP REPORTS WBC 12.0, HGB 11.4, HCT 33.5. CMP REPORTS SODIUM 134, POTASSIUM 2.8, CHLORIDE 96, BUN 19, GLUCOSE 157, AST 11, ALBUMIN 3.0. WE OBTAINED A CHEST CT WITH CONTRAST. IT REPORTED FINDINGS CONSISTENT WITH A CHRONIC INFECTIOUS PROCESS INVOLVING PRIMARILY THE RIGHT LUNG. PRIMARY CONSIDERATION WOULD BE A CHRONIC MYCOBACTERIAL INFECTION SUCH A WALTER. WE PLAN TO RECHECK LABS AND FOLLOW UP WITH PATIENT IN AM. - Past Medical Family Social History Past Med/Fam/Surg Hx: No changes since H&P Allergies: Allergies No Known Drug Allergies Allergy (Verified 03/09/17 07:54) - Review of Systems ROS: No change since H&P - Vital Signs and I&O's Vital Signs: Temperature 98.1 F Pulse Rate [Right Brachial] 88 Pulse Rate [Left Brachial] 106 Pulse Rate 98 Respiratory Rate 20 Blood Pressure [Left Arm] 126/65 Blood Pressure [Right Arm] 122/56 O2 Sat by Pulse Oximetry 92 Intake and Output: Intake & Output 03/10/17 03/11/17 03/12/17 03/13/17 11:59 11:59 11:59 11:59 Intake Total 2170 Output Total 1200 Balance 970 - Physical Exam Oriented: Normal Eyes: Normal Ear: Normal Nose: Normal Throat: Normal Respiratory: Right, Left, Wheezes Cardiovascular: Normal : Normal Auscultation: Bowel Sounds: Normal Palpation: Normal Tenderness: Normal Skin: Normal Musculoskeletal: Normal Psychiatric: Normal Mood Description: Calm Affect: Normal Speech Pattern: Clear, Appropriate - Laboratory and Diagnostics Result Diagrams: 03/12/17 03:30 03/12/17 07:55 Labs: 03/11/17 15:07 Sputum - Expectorated Sputum Sputum Culture - Preliminary 03/11/17 15:07 Sputum - Expectorated Sputum - Final Laboratory WBC 12.0 X10^3/uL (3.6-10.0) H 03/12/17 03:30 RBC 4.40 X10^6/uL (3.5-5.4) 03/12/17 03:30 Hgb 11.4 g/dL (12.0-16.0) L 03/12/17 03:30 Hct 33.5 % (36.0-47.0) L 03/12/17 03:30 MCV 76.0 fL (80.0-100.0) L 03/12/17 03:30 MCH 25.8 pg (27.0-34.0) L 03/12/17 03:30 MCHC 34.0 g/dL (33.0-35.0) 03/12/17 03:30 RDW 15.7 % (11.6-16.5) 03/12/17 03:30 Plt Count 484 X10^3/uL (150.0-450.0) H 03/12/17 03:30 Plt Count Comment Increased (ADEQUATE) A 03/12/17 03:30 MPV 7.5 fL (7.4-11.0) 03/12/17 03:30 Neut % 92.3 % (42.0-75.0) H 03/12/17 03:30 Lymph % 6.5 % (21.0-51.0) L 03/12/17 03:30 [place] % 1.1 % (0.0-13.0) 03/12/17 03:30 Eos % 0.0 % (0.9-2.9) L 03/12/17 03:30 Baso % 0.1 % (0.2-1.0) L 03/12/17 03:30 Neut # 11.1 x10^3/uL (2.2-4.8) H 03/12/17 03:30 Lymph # 0.8 X10^3/uL (1.3-2.9) L 03/12/17 03:30 [place] # 0.1 x10^3/uL (0.3-0.8) L 03/12/17 03:30 Eos # 0.0 x10^3/uL (0.0-0.2) 03/12/17 03:30 Baso # 0.0 X10^3/uL (0.0-0.1) 03/12/17 03:30 Absolute Nucleated RBC 0.0 /100WBC 03/12/17 03:30 Total Counted 100 03/12/17 03:30 Neutrophils % (Manual) 92 % (39-76) H 03/12/17 03:30 Lymphocytes % (Manual) 6 % (13-43) L 03/12/17 03:30 Monocytes % (Manual) 2 % (4-9) L 03/12/17 03:30 Plt Morphology Comment Normal (NORMAL) 03/12/17 03:30 RBC Morphology Abnormal (NORMAL) A 03/12/17 03:30 Hypochromasia Slight A 03/12/17 03:30 Sample Site R rad 03/09/17 01:45 ABG pH 7.520 (7.35-7.45) H 03/09/17 01:45 ABG pCO2 34.0 mmHg (35.0-45.0) L 03/09/17 01:45 ABG pO2 94.0 mmHg (80.0-100.0) 03/09/17 01:45 ABG HCO3 27.8 mmol/L (22-26) H 03/09/17 01:45 ABG O2 Saturation 98.0 % (90-100) 03/09/17 01:45 ABG Base Excess 5.0 mmol/L (-2.0-2.0) H 03/09/17 01:45 Luis Test Pos 03/09/17 01:45 A-a Gradient 63.0 mmHg 03/09/17 01:45 FiO2 28.000 03/09/17 01:45 Blood Gas Comments Cem well, afh 03/09/17 01:45 Sodium 134 mmol/L (136-145) L 03/12/17 03:30 Corrected Sodium 135 mmol/L (136-145) L 03/12/17 03:30 Potassium 4.0 mmol/L (3.5-5.1) 03/12/17 07:55 Chloride 96 mmol/L (98-107) L 03/12/17 03:30 Carbon Dioxide 31.4 mmol/L (21-32) 03/12/17 03:30 BUN 19 mg/dL (7-18) H 03/12/17 03:30 Creatinine 0.85 mg/dL (0.55-1.02) 03/12/17 03:30 Est GFR (MDRD) Af Amer > 60 (>60) 03/12/17 03:30 Est GFR (MDRD) Non-Af > 60 (>60) 03/12/17 03:30 Glucose 157 mg/dL (65-99) H 03/12/17 03:30 Calcium 8.9 mg/dL (8.5-10.1) 03/12/17 03:30 Corrected Calcium 9.7 mg/dL (8.5-10.1) 03/12/17 03:30 Magnesium 2.1 mg/dL (1.7-2.9) 03/12/17 03:30 Total Bilirubin 0.50 mg/dL (0.2-1.0) 03/12/17 03:30 AST 11 Units/L (15-37) L 03/12/17 03:30 ALT 14 Units/L (12-78) 03/12/17 03:30 Alkaline Phosphatase 68 Units/L (46-116) 03/12/17 03:30 Creatine Kinase 68 Units/L (26-192) 03/08/17 22:45 CK-MB (CK-2) < 1.0 ng/mL (0-4.0) 03/08/17 22:45 CK/CKMB % Calc 1.5 % (<4) 03/08/17 22:45 Troponin I 0.02 ng/mL (0-1.5) 03/08/17 22:45 B-Natriuretic Peptide 63.2 pg/mL (0-79) 03/08/17 22:45 Total Protein 7.0 g/dL (6.4-8.2) 03/12/17 03:30 Albumin 3.0 g/dL (3.4-5.0) L 03/12/17 03:30 Globulin 4.0 g/dL (2.5-4.5) 03/12/17 03:30 Albumin/Globulin Ratio 0.8 Ratio (1.1-2.1) L 03/12/17 03:30 Specimen Type Catherized urine 03/09/17 01:25 Urine Color Pale yellow (YELLOW) 03/09/17 01:25 Urine Appearance Clear (CLEAR) 03/09/17 01:25 Urine pH 7.0 (5.0 - 8.0) 03/09/17 01:25 Ur Specific [place] 1.015 (1.000-1.030) 03/09/17 01:25 Urine Protein Negative (NEGATIVE) 03/09/17 01:25 Urine Glucose (UA) Negative (NEGATIVE) 03/09/17 01:25 Urine Ketones Negative (NEGATIVE) 03/09/17 01:25 Urine Occult Blood 1+ (NEGATIVE) 03/09/17 01:25 Urine Nitrite Negative (NEGATIVE) 03/09/17 01:25 Urine Bilirubin Negative (NEGATIVE) 03/09/17 01:25 Urine Urobilinogen Normal (NORMAL) 03/09/17 01:25 Ur Leukocyte Esterase Negative (NEGATIVE) 03/09/17 01:25 Urine RBC 0-3 /HPF (NEGATIVE) 03/09/17 01:25 Urine WBC 0-3 /HPF (NEGATIVE) 03/09/17 01:25 Ur Squamous Epith Cells Rare /HPF (NEGATIVE) 03/09/17 01:25 Urine Bacteria Negative /HPF (NEGATIVE) 03/09/17 01:25 Ur Culture Indicated? No/not indicated 03/09/17 01:25 - Plan (1) Pulmonary edema with congestive heart failure Status: Acute Plan: START DUONEBS, START SOLU-MEDROL 40MG IV Q8H, CONTINUE LASIX 20MG IVP BID , CONTINUE TO MONITOR LABS AND CHEST XRAY (2) Hypertension Status: Acute Qualifiers: Hypertension type: essential hypertension Qualified Code(s): I10 - Essential (primary) hypertension Plan: CONTINUE HYZAAR, CONTINUE TO MONITOR (3) Hypokalemia Status: Acute Plan: CONTINUE POTASSIUM PROTOCOL, CONTINUE TO MONITOR (4) Hypomagnesemia Status: Acute Plan: CONTINUE MAG-OX, CONTINUE TO MONITOR
[2017-03-12] MEDS: ZyrTEC TAB 10 MG PO SCH (21:05)
[2017-03-13] MEDS: SOLU-Medrol 40 MG VIAL IVP SCH (05:45)
[2017-03-13] MEDS: LASIX IVP SCH (06:04)
[2017-03-13] MEDS: MAG-OX TAB PO SCH (06:04)
[2017-03-13 06:08] LABS: BASOPHILS # (AUTO) 0.1 X10^3/uL (0.0-0.1); BASOPHILS % (AUTO) 0.3 % (0.2-1.0); HEMATOCRIT 32.3 % (36.0-47.0); HEMOGLOBIN 10.8 g/dL (12.0-16.0); LYMPHOCYTES # (AUTO) 0.9 X10^3/uL (1.3-2.9); LYMPHOCYTES % (AUTO) 4.4 % (21.0-51.0); MEAN CORPUSCULAR HEMOGLOBIN 25.6 pg (27.0-34.0); MEAN CORPUSCULAR HGB CONC 33.3 g/dL (33.0-35.0); MEAN CORPUSCULAR VOLUME 76.7 fL (80.0-100.0); MEAN PLATELET VOLUME 7.6 fL (7.4-11.0); MONOCYTES # (AUTO) 0.6 x10^3/uL (0.3-0.8); MONOCYTES % (AUTO) 2.8 % (0.0-13.0); NEUTROPHILS # (AUTO) 18.4 x10^3/uL (2.2-4.8); NEUTROPHILS % (AUTO) 92.5 % (42.0-75.0); PLATELET COUNT 506 X10^3/uL (150.0-450.0); RED BLOOD COUNT 4.21 X10^6/uL (3.5-5.4); RED CELL DISTRIBUTION WIDTH 15.8 % (11.6-16.5); WHITE BLOOD COUNT 19.9 X10^3/uL (3.6-10.0)
[2017-03-13 06:28] LABS: ALANINE AMINOTRANSFERASE 18 Units/L (12-78); ALBUMIN 2.9 g/dL (3.4-5.0); ALKALINE PHOSPHATASE 64 Units/L (46-116); ASPARTATE AMINO TRANSFERASE 14 Units/L (15-37); BLOOD UREA NITROGEN 23 mg/dL (7-18); CALCIUM 8.9 mg/dL (8.5-10.1); CARBON DIOXIDE 27.6 mmol/L (21-32); CHLORIDE 97 mmol/L (98-107); COR CA(FOR HYPOALB) 9.8 mg/dL (8.5-10.1); COR NA(FOR HYPERGLY) 133 mmol/L (136-145); CREATININE 0.91 mg/dL (0.55-1.02); GLUCOSE 146 mg/dL (65-99); SODIUM 132 mmol/L (136-145); TOTAL PROTEIN 6.6 g/dL (6.4-8.2); eGFR BLACK RACES > 60 (>60); eGFR NON BLACK RACES > 60 (>60)
[2017-03-13 06:47] LABS: BAND NEUTROPHILS % 3 % (0-10)
[2017-03-13 06:48] LABS: HYPOCHROMASIA SLIGHT; PLATELET MORPHOLOGY COMMENT NORMAL (NORMAL)
[2017-03-13] MEDS: HYZAAR 50/12.5 MG PO SCH (08:29)
[2017-03-13] MEDS: PREDNISONE TAB 10 MG PO SCH (08:29)
[2017-03-13] MEDS: MICRO K EXTEN CAP 10 MEQ PO SCH (08:29)
[2017-03-13] MEDS: CIPRO IV 400 MG PREMIX* 400 MG/200 ML IV.SOLN. IV SCH (08:29)
--- NOTE | 2017-03-13 09:17 | RAD ---
HISTORY: Shortness of breath Study: AP upright portable chest Comparison: March 11, 2017 plain film and chest CT Findings: The heart is enlarged. No congestive heart failure is noted. The aorta is calcified and ectatic. The lungs are well inflated and free of acute alveolar infiltrates. There are some interstitial lung ch anges present diffusely . additionally there is some bronchiectasis in the area of the right middle lobe. No pleural effusions are identified. The bony thorax is unremarkable. IMPRESSION: Cardiomegaly without congestive heart failure Diffuse interstitial lung changes Bronchiectatic changes in the right middle lobe Reported By:
[2017-03-13] MEDS: DUONEB 0.5 MG/3 MG NEB SCH (09:29)
[2017-03-13 13:05] VITALS: BP 104/56
== END 2017-03-13 12:20 | disposition home or self-care (01) | DRG 293 ==
LOC: ER 23:30 → MED/SURG 03-09 07:50 → OBSVTOIN 03-11 08:30
PROVIDERS: ADMIT Internal Medicine; ATTEND Internal Medicine
DX: I50.9 Heart failure, unspecified (principal); E87.6 Hypokalemia; E83.42 Hypomagnesemia; R42 Dizziness and giddiness
CPT/HCPCS: 36415; 36600; 51702; 71010; 71260; 80048; 80053; 81001; 82550; 82553; 82803; 83735; 83880; 84132; 84484; 85025; 87040; 87070; 87116; 87205; 93005; 93010; 94760; 96365; 96367; 96374; 96375; 99284; A4222; G0378; J0744; J1940; J2270; J2920; J7506; J7620

== ENCOUNTER 2019-03-30 10:32 | Inpatient (IN) ==
[2019-03-30 10:43] VITALS: BMI 32.2
--- NOTE | 2019-03-30 11:09 | DR.SOBA ---
HPI Time Seen Time Seen by Provider: 03/30/19 10:50 Primary Care Physician Primary Care Physician: DR GRAY HPI Comment HPI Comment: PATIENT IS 78YR OLD FEMALE IN THE ER VIA EMS WITH INCREASING SOB, LOWER ESTREMITY EDEMA AND GENERALIZED PAIN. PATIENT HAVE NON PRODUCTIVE COUGH AND PLEURRITIC CHEST TIGHTNESS. PAIN IS 6/10 AND IS GENERALIZED. PATIENT IS RUNNING LOW GRADE FEVER. SHE HAS PROGRESSIVE EXERTIONAL DYSPNEA THAT IS WORSE TODAY. Complaints Chief Complaint Doctors Comments: INCREASING SOB, LOWER EXTREMITY EDEMA AND GENERALIZED PAIN TIMES ONE DAY. Chief Complaint:: PT C/O SOB WITH NONPRODUCTIVE COUGH AND BILATERAL LOWER EXTREMITY SWELLING SINCE YESTERDAY. PT C/O CHRONIC GENERALIZED PAIN ALL OVER WELL Reviewed Nurses Notes Reviewed: Yes Source History Provided: Patient Mode of Arrival Mode of Arrival: Stretcher Timing Onset of Chief Complaint: 03/30/19 Duration Duration: Days Context Onset:: With Light Exertion PE Risk Factors:: None History of:: CHF Currently on:: Inhaled Bronchodilators Prehospital Care:: None Modifying Factors Worsens:: Exertion and Lying Flat Improves:: Rest and Sitting Up Associated Signs and Symptoms Associated Signs and Symptoms: Fever, Wheeze, Cough, Nasal Congestion, Chest Pain, Leg Swelling, Numbness and Feet Numbness If Chest Pain Quality: Pleuritic (TIGHTNESS.) Location: Left Upper Chest and Left Lower Chest If Cough Cough: Nonproductive Other History Other History: HISTORY T12 FRACTURE AND CHF. PMH PMH Past Medical History: Yes Past Medical History: Arthritis, CHF and Hypertension Past Medical History Comment: OSTEOPOROSIS, T11 FRACTURE Past Surgical History: Yes Surgical History: 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 Family History History of Family Medical Conditions: Yes Family Medical History: Diabetes Mellitus and Hypertension Social History Does patient currently use any type of tobacco product: No Have you used tobacco products in the last 12 months: No Type of Tobacco Use: None Does any household member use tobacco: No Alcohol Use: None Do you use any recreational Drugs:: No Lives With: Family Lives Where: Home infectious screening In the last 2 months have you had wt loss of >10#?: NO Have you had fever, night sweats or hemotysis?: No Have you traveled outside the country in the last 6 months?: No Isolation: Standard ROS Review of Systems Constitutional: See HPI, Fever, Weakness and Fatigue Eyes: No Symptoms Reported and See HPI; negative Eye Pain and Discharge ENTM: See HPI, Nose Discharge and Nose Congestion; negative Ear Pain and Throat Pain Respiratoy: See HPI, Non-Productive Cough, Short of Breath and Wheezing Cardiovascular: See HPI, Chest Pain, Edema and Palpitations Gastrointestinal/Abdominal: No Symptoms Reported and See HPI; negative Abdominal Pain, Constipation, Diarrhea, Nausea and Vomiting Genitourinary: No Symptoms Reported; negative Dysuria, Frequency and Hematuria Neurological: See HPI, Headache, Weakness and Dizziness Musculoskeletal: See HPI, Back Pain, Muscle Pain, Leg and Foot Integumentary: Change in Color and Dryness; negative Juandice Hematologic/Lymphatic: No Symptoms Reported and See HPI; negative Easy Bleeding, Easy Bruising and Swollen Glands Endocrine: No Symptoms Reported and See HPI; negative Increased Thirst and Increased Urine Psychiatric: No Symptoms Reported and See HPI All Other Systems: Reviewed and Negative PE Vital Signs Vitals: Temperature 98.0 F Pulse Rate [Brachial] 106 Pulse Rate 81 Respiratory Rate 18 Blood Pressure [Left Arm] 126/94 Blood Pressure [Right Arm] 104/56 Blood Pressure 144/69 O2 Sat by Pulse Oximetry 94 General Limitations: No Limitations General Appearance: Alert and In Distress Head Head Exam: Normal Inspection, Atraumatic and Normocephalic Eyes Eye exam: Normal Appearance, PERRL and EOMI; negative Scleral Icterus and Conjunctival Injection ENT ENT Exam: Normal Exam and Normal External Ear Exam; negative Normal Oropharynx and TM's Normal Bilaterally Neck Neck Exam: Normal Inspection and Trachea Midline; negative Tenderness and Lymphadenopathy Chest Chest Inspection: Normal Inspection and Symmetric Chest Wall Rise; negative Tenderness Respiratory Respiratory Exam: Normal Lung Sounds Bilat, Accessory Muscle Use and Respiratory Distress; negative Chest Wall Tenderness Respiratory Exam: Bilateral: Wheezing and Bilateral: Rhonchi and Lower: Wheezing and Lower: Rhonchi Cardiovascular Cardiovascular Exam: Regular Rate, Normal Rhythm and Normal Heart Sounds; negative Systolic Murmur and Diastolic Murmur Abdominal Exam Abdominal Exam: Normal Inspection, Normal Bowel Sounds and Soft; negative Tenderness Extremities Extremities Exam: Normal Inspection and Edema (3 PLUS LOWER EXTREMITY EDEMA.) Back Back Exam: Normal Inspection; negative Tenderness, (R) CVA Tenderness, (L) CVA Tenderness, Paraspinal Tenderness and Vertebral Tenderness Neurologic Neurological Exam: Alert, Oriented X3 and CN II-XII Intact; negative Motor Sensory Deficit Psychiatric Psychiatric Exam: Normal Affect and Normal Mood Skin Skin Exam: Warm and Erythema (3PLUS EDENA LOWER EXTREMITY.) MDM Differential Diagnosis Differential Diagnosis: Bronchitis, CHF, COPD, Dysrhythmia, Hyperventilation, Hyponatremia, Mycardial Infarction, Pneumonia, Pneumothorax, Pulmonary embolism, Respiratory Failure, Respiratory Insufficiency and URI COURSE Treatment Treatment: SEE ORDERS. LASIX 40MG IV IN ER. CEFTAZIDINE 1GM IVPB IN ER. Reevaluation 1st: Improved (SOB IMPROVING.) Consultation Consultation Comments: DISCUSSED PATIENT WITH DR. GRAY. HE WILL ADMIT PATIENT. Education/Counseling Education/Counseling: Patient Educated On: Diagnosis ROR Labs Reviewed Laboratory Results Reviewed?: Yes Result Diagrams: 04/06/19 04:19 04/06/19 04:19 Laboratory: 03/30/19 13:25 Blood Blood Culture - Final 03/30/19 13:10 Blood Blood Culture - Final 03/30/19 11:50 Sputum - Expectorated Sputum Sputum Culture - Final Pseudomonas Aeruginosa 03/30/19 11:50 Sputum - Expectorated Sputum - Final WBC 6.7 X10^3/uL (3.6-10.0) 04/01/19 05:07 RBC 3.87 X10^6/uL (3.5-5.4) 04/01/19 05:07 Hgb 9.9 g/dL (12.0-16.0) L 04/01/19 05:07 Hct 29.8 % (36.0-47.0) L 04/01/19 05:07 MCV 77.2 fL (80.0-100.0) L 04/01/19 05:07 MCH 25.5 pg (27.0-34.0) L 04/01/19 05:07 MCHC 33.1 g/dL (33.0-35.0) 04/01/19 05:07 RDW 21.0 % (11.6-16.5) H 04/01/19 05:07 Plt Count 352 X10^3/uL (150.0-450.0) 04/01/19 05:07 Plt Count Comment Adequate (ADEQUATE) 04/01/19 05:07 MPV 6.5 fL (7.4-11.0) L 04/01/19 05:07 Neut % (Auto) 81.1 % (42.0-75.0) H 04/01/19 05:07 Lymph % (Auto) 7.9 % (21.0-51.0) L 04/01/19 05:07 [place] % (Auto) 8.4 % (0.0-13.0) 04/01/19 05:07 Eos % (Auto) 1.5 % (0.9-2.9) 04/01/19 05:07 Baso % (Auto) 1.1 % (0.2-1.0) H 04/01/19 05:07 Neut # (Auto) 5.4 x10^3/uL (2.2-4.8) H 04/01/19 05:07 Lymph # (Auto) 0.5 X10^3/uL (1.3-2.9) L 04/01/19 05:07 [place] # (Auto) 0.6 x10^3/uL (0.3-0.8) 04/01/19 05:07 Eos # (Auto) 0.1 x10^3/uL (0.0-0.2) 04/01/19 05:07 Baso # (Auto) 0.1 X10^3/uL (0.0-0.1) 04/01/19 05:07 Absolute Nucleated RBC 0.0 /100WBC 04/01/19 05:07 Plt Morphology Comment Normal (NORMAL) 04/01/19 05:07 RBC Morphology Abnormal (NORMAL) A 04/01/19 05:07 Hypochromasia 1+ A 04/01/19 05:07 Anisocytosis 1+ A 04/01/19 05:07 D-Dimer 1150 ng/mL (0-400) H* 04/01/19 05:07 Sodium 136 mmol/L (136-145) 04/01/19 05:07 Corrected Sodium 136 mmol/L (136-145) 04/01/19 05:07 Potassium 4.1 mmol/L (3.5-5.1) 04/01/19 05:07 Chloride 100 mmol/L (98-107) 04/01/19 05:07 Carbon Dioxide 29.1 mmol/L (21-32) 04/01/19 05:07 BUN 11 mg/dL (7-18) 04/01/19 05:07 Creatinine 0.61 mg/dL (0.55-1.02) 04/01/19 05:07 Est GFR (MDRD) Af Amer > 60 (>60) 04/01/19 05:07 Est GFR (MDRD) Non-Af > 60 (>60) 04/01/19 05:07 Glucose 120 mg/dL (65-99) H 04/01/19 05:07 Calcium 8.2 mg/dL (8.5-10.1) L 04/01/19 05:07 Corrected Calcium 9.4 mg/dL (8.5-10.1) 04/01/19 05:07 Magnesium 2.0 mg/dL (1.7-2.9) 03/30/19 18:46 Total Bilirubin 0.40 mg/dL (0.2-1.0) 04/01/19 05:07 AST 14 Units/L (15-37) L 04/01/19 05:07 ALT 12 Units/L (12-78) 04/01/19 05:07 Alkaline Phosphatase 120 Units/L (46-116) H 04/01/19 05:07 Creatine Kinase 20 Units/L (26-192) L 03/31/19 00:13 CK-MB (CK-2) < 1.0 ng/mL (0-4.0) 03/31/19 00:13 CK/CKMB % Calc 5.0 % (<4) 03/31/19 00:13 Troponin I 0.03 ng/mL (0-1.5) 03/31/19 00:13 B-Natriuretic Peptide 35.9 pg/mL (0-79) 04/01/19 05:07 Total Protein 6.3 g/dL (6.4-8.2) L 04/01/19 05:07 Albumin 2.5 g/dL (3.4-5.0) L 04/01/19 05:07 Globulin 3.8 g/dL (2.5-4.5) 04/01/19 05:07 Albumin/Globulin Ratio 0.7 Ratio (1.1-2.1) L 04/01/19 05:07 Specimen Type Catherized urine 03/30/19 21:20 Urine Color Yellow (YELLOW) 03/30/19 21:20 Urine Appearance Slightly hazy (CLEAR) 03/30/19 21:20 Urine pH 6.0 (5.0 - 8.0) 03/30/19 21:20 Ur Specific [place] 1.020 (1.000-1.030) 03/30/19 21:20 Urine Protein 1+ (NEGATIVE) 03/30/19 21:20 Urine Glucose (UA) Negative (NEGATIVE) 03/30/19 21:20 Urine Ketones Negative (NEGATIVE) 03/30/19 21:20 Urine Occult Blood 2+ (NEGATIVE) 03/30/19 21:20 Urine Nitrite Negative (NEGATIVE) 03/30/19 21:20 Urine Bilirubin Negative (NEGATIVE) 03/30/19 21:20 Urine Urobilinogen Normal (NORMAL) 03/30/19 21:20 Ur Leukocyte Esterase Negative (NEGATIVE) 03/30/19 21:20 Urine RBC 5-10 /HPF (0-3) A 03/30/19 21:20 Urine WBC 0-2 /HPF (0-5) 03/30/19 21:20 Ur Squamous Epith Cells Few /HPF (NEGATIVE) 03/30/19 21:20 Ur Renal Epithelial Cell Rare /HPF (NEGATIVE) 03/30/19 21:20 Amorphous Sediment 1+ /HPF (NEGATIVE) 03/30/19 21:20 Urine Bacteria Trace /HPF (NEGATIVE) 03/30/19 21:20 Urine Mucus Many /HPF (NEGATIVE) 03/30/19 21:20 Ur Culture Indicated? No/not indicated 03/30/19 21:20 XRAY XRAY Interpreted by: Radiologist XRAY Findings: REPORT NOTED AND DISCUSSED WITH PATIENT. Opioid Opioid Risk Tool Age ( box if 16-45): No History of Preadolescent Sexual Abuse: No Total: 0 Total Score Risk Category: Low Risk Copyright: Kimani MEDELLIN predicting aberrant behaviors Diagnosis Discharge Problem: Pneumonia Qualifiers: Pneumonia type: due to unspecified organism CHF (congestive heart failure) Qualifiers: Heart failure type: combined systolic and diastolic Heart failure chronicity: acute on chronic Qualified Code(s): I50.43 - Acute on chronic combined systolic (congestive) and diastolic (congestive) heart failure Instructions Instructions: Hypokalemia Nonspecific Chest Pain, [id number] How to Use a Nebulizer, Adult Hypertension, [id number] Heart Failure, [id number] Spinal Compression Fracture Community-Acquired Pneumonia, Adult Forms: Patient Portal
--- NOTE | 2019-03-30 11:42 | RAD ---
HISTORY: Shortness of breath prior history of hypertension Study: Single-view chest Comparison: 03/12/2019. Findings: Trachea is midline. There is cardiomegaly with atherosclerotic calcification and uncoiling of the aortic arch. Increased interstitial markings are present bilaterally which may represent CHF/interstitial edema or interstitial pneumonia. No significant pleural effusion is seen. There is no evidence of pneumothorax. Osseous structures intact. IMPRESSION: Hypertensive configuration. Increased interstitial markings present diffusely throughout both lungs. Findings may represent CHF/interstitial edema or interstitial pneumonia. Reported By:
[2019-03-30 11:48] LABS: BASOPHILS # (AUTO) 0.1 X10^3/uL (0.0-0.1); BASOPHILS % (AUTO) 1.3 % (0.2-1.0); EOSINOPHILS # (AUTO) 0.2 x10^3/uL (0.0-0.2); EOSINOPHILS % (AUTO) 2.9 % (0.9-2.9); HEMOGLOBIN 10.3 g/dL (12.0-16.0); LYMPHOCYTES # (AUTO) 0.7 X10^3/uL (1.3-2.9); LYMPHOCYTES % (AUTO) 9.8 % (21.0-51.0); MEAN CORPUSCULAR HEMOGLOBIN 24.9 pg (27.0-34.0); MEAN CORPUSCULAR HGB CONC 32.3 g/dL (33.0-35.0); MEAN CORPUSCULAR VOLUME 77.2 fL (80.0-100.0); MEAN PLATELET VOLUME 6.8 fL (7.4-11.0); MONOCYTES # (AUTO) 0.2 x10^3/uL (0.3-0.8); MONOCYTES % (AUTO) 3.5 % (0.0-13.0); NEUTROPHILS # (AUTO) 5.6 x10^3/uL (2.2-4.8); NEUTROPHILS % (AUTO) 82.5 % (42.0-75.0); PLATELET COUNT 445 X10^3/uL (150.0-450.0); RED BLOOD COUNT 4.15 X10^6/uL (3.5-5.4); RED CELL DISTRIBUTION WIDTH 21.3 % (11.6-16.5); WHITE BLOOD COUNT 6.7 X10^3/uL (3.6-10.0)
[2019-03-30 12:02] LABS: BLOOD UREA NITROGEN 19 mg/dL (7-18); CALCIUM 9.5 mg/dL (8.5-10.1); CARBON DIOXIDE 29.2 mmol/L (21-32); CHLORIDE 100 mmol/L (98-107); CREATININE 0.67 mg/dL (0.55-1.02); SODIUM 136 mmol/L (136-145); TROPONIN I < 0.02 ng/mL (0-1.5); eGFR NON BLACK RACES > 60 (>60)
[2019-03-30 12:06] LABS: ALANINE AMINOTRANSFERASE 16 Units/L (12-78); ALBUMIN 2.9 g/dL (3.4-5.0); ALKALINE PHOSPHATASE 128 Units/L (46-116); ASPARTATE AMINO TRANSFERASE 17 Units/L (15-37); CKMB % 3.9 % (<4); COR CA(FOR HYPOALB) 10.4 mg/dL (8.5-10.1); CREATINE KINASE 26 Units/L (26-192); CREATINE KINASE MB < 1.0 ng/mL (0-4.0); TOTAL PROTEIN 6.7 g/dL (6.4-8.2)
[2019-03-30 12:09] LABS: ANISOCYTOSIS 1+; PLATELET MORPHOLOGY COMMENT NORMAL (NORMAL)
[2019-03-30] MEDS ORDERED: FORTAZ or TAZICEF VIAL INJ IVP ONE (13:07)
[2019-03-30] MEDS ORDERED: FORTAZ or TAZICEF VIAL INJ ONE (13:37)
[2019-03-30] MEDS ORDERED: LASIX IVP ONE ×2 (13:48→13:54)
[2019-03-30] MEDS ORDERED: PATIENT'S HOME MEDICATION (Lubiprostone [Amitiza] 8 MCG) PO PRN ×2 (18:04)
[2019-03-30] MEDS ORDERED: K-DUR TAB 20 MEQ PO PRN (19:06)
[2019-03-30] MEDS ORDERED: K-RIDER 10 MEQ/NS 100 ML 10 MEQ/100 ML BAG IV PRN (19:06)
[2019-03-30] MEDS ORDERED: POTASSIUM CHLORIDE LIQ 20 MEQ UDC PO PRN (19:06)
[2019-03-30] MEDS ORDERED: MICRO K EXTEN CAP 10 MEQ PO PRN (19:06)
[2019-03-30] MEDS ORDERED: KLOR-CON PO PRN (19:06)
[2019-03-30] MEDS ORDERED: MAGNESIUM SULFATE 1 GRAM/100 mL PREMIX 1 GM/100 ML BAG IV PRN (19:06)
[2019-03-30] MEDS ORDERED: POTASSIUM CHL 40 MEQ/NS 0.45% 500 ML IV PRN (19:06)
[2019-03-30] MEDS ORDERED: POTASSIUM CHL 60 MEQ/NS 0.45% 500 ML IV PRN (19:06)
[2019-03-30] MEDS: DUONEB 0.5 MG/3 MG NEB SCH (19:13)
[2019-03-30 19:15] LABS: CREATINE KINASE 25 Units/L (26-192); CREATINE KINASE MB < 1.0 ng/mL (0-4.0); TROPONIN I 0.02 ng/mL (0-1.5)
[2019-03-30] MEDS: MAG-OX TAB PO SCH (20:45)
[2019-03-30] MEDS: NEURONTIN CAP 300 MG PO SCH (20:45)
[2019-03-30] MEDS: MICRO K EXTEN CAP 10 MEQ PO SCH (20:45)
[2019-03-30] MEDS: VIBRAMYCIN 100 MG in D5W 250 ML IV 250 ML IV SCH (20:46)
[2019-03-30] MEDS ORDERED: NS 500 ML IV 500 ML IV ONE (20:52)
[2019-03-30] MEDS ORDERED: LASIX IVP SCH (21:00)
[2019-03-30] MEDS: NORCO 10/325 TAB PO PRN (21:06)
[2019-03-30] MEDS: FORTAZ or TAZICEF VIAL INJ IVP SCH (21:10)
[2019-03-30 21:32] LABS: BILIRUBIN,URINE NEGATIVE (NEGATIVE); BLOOD/HEMOGLOBIN,URINE 2+ (NEGATIVE); GLUCOSE, URINE NEGATIVE (NEGATIVE); KETONES,URINE NEGATIVE (NEGATIVE); LEUKOCYTE ESTERASE ,URINE NEGATIVE (NEGATIVE); NITRITES,URINE NEGATIVE (NEGATIVE); PROTEIN,URINE 1+ (NEGATIVE); UROBILINOGEN,URINE NORMAL (NORMAL)
[2019-03-30 21:37] LABS: APPEARANCE,URINE SLIGHTLY HAZY (CLEAR); COLOR,URINE YELLOW (YELLOW)
[2019-03-30 21:38] LABS: AMORPHOUS SEDIMENT,UR 1+ /HPF (NEGATIVE); BACTERIA,URINE TRACE /HPF (NEGATIVE); MUCUS,URINE MANY /HPF (NEGATIVE); RENAL EPITHELIAL CELLS,URINE RARE /HPF (NEGATIVE); SQUAMOUS EPITHELIAL CELL,UR FEW /HPF (NEGATIVE)
[2019-03-31 00:40] LABS: CREATINE KINASE 20 Units/L (26-192); CREATINE KINASE MB < 1.0 ng/mL (0-4.0); TROPONIN I 0.03 ng/mL (0-1.5)
[2019-03-31] MEDS: DUONEB 0.5 MG/3 MG NEB SCH ×4 (00:51→17:14)
[2019-03-31 05:18] LABS: BASOPHILS # (AUTO) 0.1 X10^3/uL (0.0-0.1); BASOPHILS % (AUTO) 1.3 % (0.2-1.0); EOSINOPHILS # (AUTO) 0.1 x10^3/uL (0.0-0.2); EOSINOPHILS % (AUTO) 1.8 % (0.9-2.9); HEMATOCRIT 28.7 % (36.0-47.0); HEMOGLOBIN 9.3 g/dL (12.0-16.0); LYMPHOCYTES # (AUTO) 0.6 X10^3/uL (1.3-2.9); LYMPHOCYTES % (AUTO) 11.2 % (21.0-51.0); MEAN CORPUSCULAR HEMOGLOBIN 25.1 pg (27.0-34.0); MEAN CORPUSCULAR HGB CONC 32.5 g/dL (33.0-35.0); MEAN CORPUSCULAR VOLUME 77.3 fL (80.0-100.0); MEAN PLATELET VOLUME 6.8 fL (7.4-11.0); MONOCYTES # (AUTO) 0.3 x10^3/uL (0.3-0.8); MONOCYTES % (AUTO) 5.8 % (0.0-13.0); NEUTROPHILS # (AUTO) 4.5 x10^3/uL (2.2-4.8); NEUTROPHILS % (AUTO) 79.9 % (42.0-75.0); PLATELET COUNT 387 X10^3/uL (150.0-450.0); RED BLOOD COUNT 3.71 X10^6/uL (3.5-5.4); RED CELL DISTRIBUTION WIDTH 21.1 % (11.6-16.5); WHITE BLOOD COUNT 5.6 X10^3/uL (3.6-10.0)
[2019-03-31] MEDS: FORTAZ or TAZICEF VIAL INJ IVP SCH ×3 (05:23→21:00)
[2019-03-31 05:30] LABS: ALANINE AMINOTRANSFERASE 13 Units/L (12-78); ALBUMIN 2.5 g/dL (3.4-5.0); ALKALINE PHOSPHATASE 112 Units/L (46-116); ASPARTATE AMINO TRANSFERASE 13 Units/L (15-37); BLOOD UREA NITROGEN 14 mg/dL (7-18); CALCIUM 8.2 mg/dL (8.5-10.1); CARBON DIOXIDE 29.7 mmol/L (21-32); CHLORIDE 104 mmol/L (98-107); COR CA(FOR HYPOALB) 9.4 mg/dL (8.5-10.1); CREATININE 0.62 mg/dL (0.55-1.02); PLATELET MORPHOLOGY COMMENT NORMAL (NORMAL); SODIUM 141 mmol/L (136-145); TOTAL PROTEIN 5.9 g/dL (6.4-8.2); eGFR NON BLACK RACES > 60 (>60)
[2019-03-31 05:31] LABS: ANISOCYTOSIS 1+; HYPOCHROMASIA 1+
[2019-03-31] MEDS: LASIX IVP SCH ×2 (06:04→17:32)
--- NOTE | 2019-03-31 06:22 | RAD ---
HISTORY: Shortness of breath Study: Chest AP portable Comparison: 03/30/2019 Findings: The heart remains enlarged. Pulmonary venous congestion is present. There is [place] a lung changes are again identified not significantly different from the prior examination. These could represent edema, pneumonia, or fibrosis. There is some subsegmental atelectasis abutting the minor fissure on the right and in the left lung base. No definite pleural effusions are identified. The bony thorax is unremarkable. IMPRESSION: No significant change from the prior examination Reported By:
[2019-03-31] MEDS ORDERED: NORVASC TAB 2.5 MG ONE (07:55)
[2019-03-31] MEDS ORDERED: PHARMACY CONSULT - DOSE _____ XX SCH (09:00)
[2019-03-31] MEDS: FOLIC ACID TAB 1 MG PO SCH (09:00)
[2019-03-31] MEDS: LOPRESSOR TAB 50 MG PO SCH (09:01)
[2019-03-31] MEDS: MICRO K EXTEN CAP 10 MEQ PO SCH ×2 (09:01→21:00)
[2019-03-31] MEDS: MAXZIDE 37.5/25 MG PO SCH (09:01)
[2019-03-31] MEDS: VIBRAMYCIN 100 MG in D5W 250 ML IV 250 ML IV SCH ×2 (09:01→21:00)
[2019-03-31] MEDS: MAG-OX TAB PO SCH ×2 (09:01→21:00)
[2019-03-31] MEDS: NORVASC TAB 2.5 MG PO SCH (09:01)
[2019-03-31] MEDS ORDERED: MILK OF MAGNESIA ONE (11:49)
[2019-03-31] MEDS ORDERED: MILK OF MAGNESIA PO PRN (11:52)
[2019-03-31] MEDS: LOVENOX INJ 40 MG SYR SC SCH (13:53)
[2019-03-31] MEDS: NORCO 10/325 TAB PO PRN (18:09)
[2019-03-31] MEDS: NEURONTIN CAP 300 MG PO SCH (21:00)
[2019-03-31] MEDS ORDERED: MORPHINE SULFATE INJ 2 MG INJ IVP PRN (23:35)
[2019-04-01] MEDS: DUONEB 0.5 MG/3 MG NEB SCH ×4 (00:50→16:16)
[2019-04-01] MEDS: FORTAZ or TAZICEF VIAL INJ IVP SCH ×3 (05:15→21:21)
[2019-04-01 05:23] LABS: BASOPHILS # (AUTO) 0.1 X10^3/uL (0.0-0.1); BASOPHILS % (AUTO) 1.1 % (0.2-1.0); EOSINOPHILS # (AUTO) 0.1 x10^3/uL (0.0-0.2); EOSINOPHILS % (AUTO) 1.5 % (0.9-2.9); HEMATOCRIT 29.8 % (36.0-47.0); HEMOGLOBIN 9.9 g/dL (12.0-16.0); LYMPHOCYTES # (AUTO) 0.5 X10^3/uL (1.3-2.9); LYMPHOCYTES % (AUTO) 7.9 % (21.0-51.0); MEAN CORPUSCULAR HEMOGLOBIN 25.5 pg (27.0-34.0); MEAN CORPUSCULAR HGB CONC 33.1 g/dL (33.0-35.0); MEAN CORPUSCULAR VOLUME 77.2 fL (80.0-100.0); MEAN PLATELET VOLUME 6.5 fL (7.4-11.0); MONOCYTES # (AUTO) 0.6 x10^3/uL (0.3-0.8); MONOCYTES % (AUTO) 8.4 % (0.0-13.0); NEUTROPHILS # (AUTO) 5.4 x10^3/uL (2.2-4.8); NEUTROPHILS % (AUTO) 81.1 % (42.0-75.0); PLATELET COUNT 352 X10^3/uL (150.0-450.0); RED BLOOD COUNT 3.87 X10^6/uL (3.5-5.4); WHITE BLOOD COUNT 6.7 X10^3/uL (3.6-10.0)
[2019-04-01 05:31] LABS: ANISOCYTOSIS 1+; HYPOCHROMASIA 1+; PLATELET MORPHOLOGY COMMENT NORMAL (NORMAL)
[2019-04-01 05:40] LABS: ALANINE AMINOTRANSFERASE 12 Units/L (12-78); ALBUMIN 2.5 g/dL (3.4-5.0); ALKALINE PHOSPHATASE 120 Units/L (46-116); ASPARTATE AMINO TRANSFERASE 14 Units/L (15-37); BLOOD UREA NITROGEN 11 mg/dL (7-18); CALCIUM 8.2 mg/dL (8.5-10.1); CARBON DIOXIDE 29.1 mmol/L (21-32); CHLORIDE 100 mmol/L (98-107); COR CA(FOR HYPOALB) 9.4 mg/dL (8.5-10.1); COR NA(FOR HYPERGLY) 136 mmol/L (136-145); CREATININE 0.61 mg/dL (0.55-1.02); SODIUM 136 mmol/L (136-145); TOTAL PROTEIN 6.3 g/dL (6.4-8.2); eGFR NON BLACK RACES > 60 (>60)
[2019-04-01] MEDS: LASIX IVP SCH ×2 (06:00→16:50)
--- NOTE | 2019-04-01 06:20 | RAD ---
HISTORY: Shortness of breath Study: Chest AP portable Comparison: 03/31/2019 Findings: The heart is enlarged. No congestive heart failure is noted. No acute alveolar infiltrates or pleural effusions are identified. Diffuse interstitial lung changes are present. They are not significantly changed in degree or distribution from the prior examination. No pleural effusions are identified. The bony thorax is unremarkable. IMPRESSION: Continued cardiomegaly without congestive heart failure No change diffuse interstitial lung disease Reported By:
[2019-04-01] MEDS ORDERED: NORVASC TAB 2.5 MG ONE (08:25)
[2019-04-01] MEDS: FOLIC ACID TAB 1 MG PO SCH (08:38)
[2019-04-01] MEDS: NORVASC TAB 2.5 MG PO SCH (08:38)
[2019-04-01] MEDS: MAG-OX TAB PO SCH ×2 (08:38→21:21)
[2019-04-01] MEDS: LOPRESSOR TAB 50 MG PO SCH (08:38)
[2019-04-01] MEDS: MICRO K EXTEN CAP 10 MEQ PO SCH ×2 (08:38→21:21)
[2019-04-01] MEDS: MAXZIDE 37.5/25 MG PO SCH (08:39)
[2019-04-01] MEDS: VIBRAMYCIN 100 MG in D5W 250 ML IV 250 ML IV SCH (08:41)
[2019-04-01] MEDS: LOVENOX INJ 40 MG SYR SC SCH (08:45)
[2019-04-01] MEDS: CIPRO IV 400 MG PREMIX* 400 MG/200 ML IV.SOLN. IV SCH ×2 (12:26→21:21)
--- NOTE | 2019-04-01 17:31 | DR.H&P ---
H&P - History & Physical for Day of: H&P Date: 03/30/19 - Chief Complaint Chief Complaint: SHORT OF BREATH, BILATERAL LOWER EXTREMITY EDEMA - History of Present Illness History of Present Illness: IS A 78 YEAR OLD PATIENT OF OURS WHO PRESENTED TO THE ER WITH COMPLAINTS OF A NON-PRODUCTIVE COUGH AND BILATERAL LOWER EXTREMITY EDEMA X 1 DAY. SHE ALSO REPORTED GENERALIZED PAIN. ON EXAMINATION, SHE IS NOTED WITH SCATTERED WHEEZING. BILATERAL EXTREMITIES ARE NOTED WITH 1+ PITTING EDEMA. ON ARRIVAL TO THE ER, VITALS WERE 99.5-103-22-97%-151/88. LABS WERE OBTAINED. ABNORMAL LAB VALUES INCLUDE THE FOLLOWING: HGB 10.3, HCT 32.0, POTASSIUM 3.2, BUN 19, GLUCOSE 110, ALK PHOS 128, ALBUMIN 2.9. BLOOD AND SPUTUM CULTURES WERE OBTAINED. A CHEST XRAY WAS OBTAINED AND REVEALED: Hypertensive configuration. Increased interstitial markings pr esent diffusely throughout both lungs. Findings may represent CHF/interstitial edema or interstitial pneumonia. EKG REVEALED: SINUS RHYTHM WITH HR 90. SHE WAS GIVEN LASIX 40MG IV X 1 AND FORTAZ 1G IV X 1 IN THE ER. SHE WAS ADMITTED FOR FURTHER EVALUATION AND TREATMENT OF ACUTE CHF, PNEUMONIA, AND RESPIRATORY DISTRESS. SHE WAS STARTED ON FORTAZ 1G IV Q8H, DOXYCYCLINE 100MG IV Q12H, RESPIRATORY TX, LASIX 20MG IV BID, POTASSIUM AND MAGNESIUM PROTOCOLS, AND SUPPLEMENTAL OXYGEN. WE PLAN TO FOLLOW UP WITH AM LABS AND CONTINUE TO MONITOR. - Past Medical History Past Medical History: Hypertension, Arthritis, CHF Additional Medical History: CATARACTS, PNEUMONIA, COLITIS, DIVERTICULOSIS - Past Surgical History Surgical History: [employer] TE[employer]ICATIONS ENG[employer] Surgery, 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 Additional Surgical History: COLOSTOMY/REVERSAL - Family History Family Medical History: Diabetes Mellitus, [place], Coronary Artery Disease, Hypertension - Social History Does patient currently use any type of tobacco product: No Have you used tobacco products in the last 12 months: No Type of Tobacco Use: None Does any household member use tobacco: No Alcohol Use: None Drug Use: None Prescription drug monitoring program results: PDMP was not reviewed - Medications Home Medications: No Known Drug Allergies Allergy (Verified 01/19/19 09:14) CONTINUE taking the following medications furosemide 20 mg PO BID 03/30/19 [History] lubiprostone [Amitiza] 8 mcg PO BID PRN 03/30/19 [History] methotrexate sodium 7.5 mg PO WEEKLY 03/30/19 [History] potassium chloride 10 meq PO BID 03/30/19 [History] triamterene-hydrochlorothiazid 1 cap PO DAILY 03/30/19 [History] - Review of Systems Constitutional: Weakness Eyes: No Symptoms Reported ENT: No Symptoms Reported Respiratory: Shortness of Breath, SOB with Excertion, Wheezing Cardiovascular: Edema (BLE ) Gastrointestinal: No Symptoms Reported Genitourinary: No Symptoms Reported Musculoskeletal: No Symptoms Reported Skin: No Symptoms Reported Neurological: Weakness - Physical Exam Vital Signs: Temperature 99.4 F Pulse Rate [Brachial] 84 Pulse Rate 64 Respiratory Rate 20 Blood Pressure [Left Arm] 113/60 Blood Pressure [Right Arm] 104/56 Blood Pressure 144/69 O2 Sat by Pulse Oximetry 98 Oriented: Normal Eyes: Normal Ear: Normal Nose: Normal Throat: Normal Respiratory: Diminished Throughout, Wheezes Throughout Cardiovascular: Tachycardia, Edema. negative: S3, S4, Murmur : Normal Auscultation: Bowel Sounds: Normal Palpation: Normal Tenderness: Normal Skin: Normal Musculoskeletal: Normal Psychiatric: Normal Mood Description: Calm Affect: Normal Speech Pattern: Clear - Assessment/Plan (1) Community acquired pneumonia Qualifiers: Laterality: left Lung location: lower lobe of lung Qualified Code(s): J18.1 - Lobar pneumonia, unspecified organism Status: Acute Plan: ADMIT, PNEUMONIA PROTOCOL, IV FORTAZ, IV DOXYCYCLINE, RESPIRATORY TX, LASIX 20MG IV BID, SUPPLEMENTAL OXYGEN, CONTINUE TO MONITOR (2) CHF (congestive heart failure) Qualifiers: Heart failure chronicity: acute on chronic Status: Acute Plan: IV LASIX, RESPIRATORY TX, SUPPLEMENTAL OXYGEN (3) Hypokalemia Status: Acute Plan: POTASSIUM PROTOCOL - Allergies Allergies/Adverse Reactions: Allergies Allergy/AdvReac Type Severity Reaction Status Date / Time No Known Drug Allergies Allergy Verified 01/19/19 09:14
[2019-04-01] MEDS: NEURONTIN CAP 300 MG PO SCH (21:21)
[2019-04-01] MEDS: NORCO 10/325 TAB PO PRN (21:22)
[2019-04-02] MEDS: DUONEB 0.5 MG/3 MG NEB SCH ×4 (00:59→18:20)
[2019-04-02] MEDS: FORTAZ or TAZICEF VIAL INJ IVP SCH ×3 (05:03→21:32)
[2019-04-02 05:42] LABS: BASOPHILS # (AUTO) 0.2 X10^3/uL (0.0-0.1); BASOPHILS % (AUTO) 1.8 % (0.2-1.0); EOSINOPHILS # (AUTO) 0.3 x10^3/uL (0.0-0.2); EOSINOPHILS % (AUTO) 2.6 % (0.9-2.9); HEMATOCRIT 31.6 % (36.0-47.0); HEMOGLOBIN 10.3 g/dL (12.0-16.0); LYMPHOCYTES # (AUTO) 0.8 X10^3/uL (1.3-2.9); LYMPHOCYTES % (AUTO) 7.3 % (21.0-51.0); MEAN CORPUSCULAR HEMOGLOBIN 25.3 pg (27.0-34.0); MEAN CORPUSCULAR HGB CONC 32.8 g/dL (33.0-35.0); MEAN CORPUSCULAR VOLUME 77.1 fL (80.0-100.0); MEAN PLATELET VOLUME 7.2 fL (7.4-11.0); MONOCYTES # (AUTO) 0.8 x10^3/uL (0.3-0.8); MONOCYTES % (AUTO) 7.1 % (0.0-13.0); NEUTROPHILS # (AUTO) 8.6 x10^3/uL (2.2-4.8); NEUTROPHILS % (AUTO) 81.2 % (42.0-75.0); PLATELET COUNT 327 X10^3/uL (150.0-450.0); RED BLOOD COUNT 4.09 X10^6/uL (3.5-5.4); RED CELL DISTRIBUTION WIDTH 21.6 % (11.6-16.5); WHITE BLOOD COUNT 10.6 X10^3/uL (3.6-10.0)
[2019-04-02 05:50] LABS: ALANINE AMINOTRANSFERASE 12 Units/L (12-78); ALBUMIN 2.7 g/dL (3.4-5.0); ALKALINE PHOSPHATASE 129 Units/L (46-116); ASPARTATE AMINO TRANSFERASE 16 Units/L (15-37); BLOOD UREA NITROGEN 13 mg/dL (7-18); CALCIUM 8.4 mg/dL (8.5-10.1); CARBON DIOXIDE 28.5 mmol/L (21-32); CHLORIDE 97 mmol/L (98-107); COR CA(FOR HYPOALB) 9.4 mg/dL (8.5-10.1); COR NA(FOR HYPERGLY) 135 mmol/L (136-145); CREATININE 0.62 mg/dL (0.55-1.02); SODIUM 134 mmol/L (136-145); TOTAL PROTEIN 6.7 g/dL (6.4-8.2); eGFR NON BLACK RACES > 60 (>60)
[2019-04-02 05:57] LABS: PLATELET MORPHOLOGY COMMENT NORMAL (NORMAL)
[2019-04-02 05:58] LABS: ANISOCYTOSIS SLIGHT; HYPOCHROMASIA SLIGHT
[2019-04-02] MEDS: LASIX IVP SCH ×2 (06:02→16:47)
--- NOTE | 2019-04-02 06:14 | RAD ---
Chest AP portable Indication: Dyspnea Comparison 04/01/2019 Findings: There is no pneumothorax. There is cardiomegaly with increased interstitial markings. Patchy right lung opacities noted. Low lung volumes limits sensitivity as is positioning. Impression: Cardiomegaly and worsening right lung opacities, with low lung volumes. Worsening pneumonia favored. CHF possible as well. Follow-up to resolution. Underlying lesion not excluded. Reported By:
[2019-04-02] MEDS: CIPRO IV 400 MG PREMIX* 400 MG/200 ML IV.SOLN. IV SCH ×2 (09:08→21:32)
[2019-04-02] MEDS: LOVENOX INJ 40 MG SYR SC SCH (09:08)
[2019-04-02] MEDS: LOPRESSOR TAB 50 MG PO SCH (09:38)
[2019-04-02] MEDS: MICRO K EXTEN CAP 10 MEQ PO SCH ×2 (09:38→21:33)
[2019-04-02] MEDS: MAG-OX TAB PO SCH ×2 (09:38→21:32)
[2019-04-02] MEDS: FOLIC ACID TAB 1 MG PO SCH (09:38)
[2019-04-02] MEDS: MAXZIDE 37.5/25 MG PO SCH (09:38)
[2019-04-02] MEDS: NORVASC TAB 2.5 MG PO SCH (09:39)
--- NOTE | 2019-04-02 10:15 | PCM.PROG ---
Progress Note - Progress Note for Day of Date of Exam: 03/31/19 - Subjective Subjective: WAS ADMITTED FOR TREATMENT OF CHF EXACERBATION AND PNEUMONIA. TODAY, SHE IS ALERT AND ORIENTED, LYING IN BED ON MORNING ROUNDS. SHE REPORTS INCREASED SHORTENSS OF BREATH TODAY. ON EXAMINATION, HEART IS REGULAR IN RATE AND RHYTHM. BILATERAL LUNGS ARE NOTED WITH SCATTERED WHEEZING AND RHONCHI THROUGHOUT. ABDOMEN IS ROUND, SOFT, AND NON-TENDER WITH NORMAL BOWEL SOUNDS IN ALL QUADRANTS. BILATERAL LOWER EXTREMITIES ARE NOTED WITH TRACE EDEMA. HER VITALS THIS MORNING ARE: 98.8-78-20-98%-121/77. LABS WERE OBTAINED. ABNORMAL LAB VALUES INCLUDE THE FOLLOWING: HGB 9.3, HCT 28.7, GLUCOSE 109, CALCIUM 8.2, AST 13, TOTAL PROTEIN 5.9, ALBUMIN 2.5. BLOOD AND SPUTUM CULTURES ARE PENDING. A CHEST XRAY WAS OBTAINED THIS MORNING AND REVEALED: The heart remains enlarged. Pulmonary venous congestion is present. There is [place] a lung changes are again identified not significantly different from the prior examination. These could represent edema, pneumonia, or fibrosis. There is some subsegmental atelectasis abutting the minor fissure on the right and in the left lung base. No definite pleural effusions are identified. The bony thorax is unremarkable. AN ECHO WAS OBTAINED AND REVEALED: EJECTION FRACTION OF 57%, RVSP 18.0. SHE IS CURRENTLY RECEIVING IV DOXY, IV FORTAZ, RESPIRATORY TX, AND SUPPLEMENTAL OXYGEN. WE WILL CONTINUE WITH CURRENT PLAN OF CARE TODAY. OTHERWISE, WE WILL FOLLOW UP WITH AM LABS AND CHEST XRAY AND CONTINUE TO MONITOR. - Past Medical Family Social History Past Med/Fam/Surg Hx: No changes since H&P Allergies: Allergies No Known Drug Allergies Allergy (Verified 01/19/19 09:14) - Review of Systems ROS: No change since H&P - Vital Signs and I&O's Vital Signs: Temperature 98.0 F Pulse Rate [Brachial] 71 Pulse Rate 106 Respiratory Rate 20 Blood Pressure [Left Arm] 123/88 Blood Pressure [Right Arm] 104/56 Blood Pressure 144/69 O2 Sat by Pulse Oximetry 96 Intake and Output: Intake & Output 03/30/19 03/31/19 04/01/19 04/02/19 11:59 11:59 11:59 11:59 Intake Total 870 / 870 1550 / 1550 1690 / 1690 Output Total 1100 / 1100 3200 / 3200 1750 / 1750 Balance -230 / -230 -1650 / -1650 -60 / -60 - Physical Exam Oriented: Normal Eyes: Normal Ear: Normal Nose: Normal Throat: Normal Respiratory: Generalized, Diminished, Wheezes, Rhonchi Cardiovascular: Normal, Edema. negative: S3, S4, Murmur : Normal Auscultation: Bowel Sounds: Normal Palpation: Normal Tenderness: Normal Skin: Normal Musculoskeletal: Normal Psychiatric: Normal Mood Description: Calm Affect: Normal Speech Pattern: Clear, Appropriate - Laboratory and Diagnostics Result Diagrams: 04/02/19 05:06 04/02/19 08:23 Labs: 03/30/19 11:50 Sputum - Expectorated Sputum Sputum Culture - Preliminary 03/30/19 11:50 Sputum - Expectorated Sputum - Final 03/30/19 13:25 Blood Blood Culture - Preliminary 03/30/19 13:10 Blood Blood Culture - Preliminary Laboratory WBC 10.6 X10^3/uL (3.6-10.0) H 04/02/19 05:06 RBC 4.09 X10^6/uL (3.5-5.4) 04/02/19 05:06 Hgb 10.3 g/dL (12.0-16.0) L 04/02/19 05:06 Hct 31.6 % (36.0-47.0) L 04/02/19 05:06 MCV 77.1 fL (80.0-100.0) L 04/02/19 05:06 MCH 25.3 pg (27.0-34.0) L 04/02/19 05:06 MCHC 32.8 g/dL (33.0-35.0) L 04/02/19 05:06 RDW 21.6 % (11.6-16.5) H 04/02/19 05:06 Plt Count 327 X10^3/uL (150.0-450.0) 04/02/19 05:06 Plt Count Comment Adequate (ADEQUATE) 04/02/19 05:06 MPV 7.2 fL (7.4-11.0) L 04/02/19 05:06 Neut % (Auto) 81.2 % (42.0-75.0) H 04/02/19 05:06 Lymph % (Auto) 7.3 % (21.0-51.0) L 04/02/19 05:06 [place] % (Auto) 7.1 % (0.0-13.0) 04/02/19 05:06 Eos % (Auto) 2.6 % (0.9-2.9) 04/02/19 05:06 Baso % (Auto) 1.8 % (0.2-1.0) H 04/02/19 05:06 Neut # (Auto) 8.6 x10^3/uL (2.2-4.8) H 04/02/19 05:06 Lymph # (Auto) 0.8 X10^3/uL (1.3-2.9) L 04/02/19 05:06 [place] # (Auto) 0.8 x10^3/uL (0.3-0.8) 04/02/19 05:06 Eos # (Auto) 0.3 x10^3/uL (0.0-0.2) H 04/02/19 05:06 Baso # (Auto) 0.2 X10^3/uL (0.0-0.1) H 04/02/19 05:06 Absolute Nucleated RBC 0.1 /100WBC 04/02/19 05:06 Plt Morphology Comment Normal (NORMAL) 04/02/19 05:06 RBC Morphology Abnormal (NORMAL) A 04/02/19 05:06 Hypochromasia Slight A 04/02/19 05:06 Anisocytosis Slight A 04/02/19 05:06 D-Dimer 1150 ng/mL (0-400) H* 04/01/19 05:07 Sodium 134 mmol/L (136-145) L 04/02/19 05:06 Corrected Sodium 135 mmol/L (136-145) L 04/02/19 05:06 Potassium 4.0 mmol/L (3.5-5.1) 04/02/19 08:23 Chloride 97 mmol/L (98-107) L 04/02/19 05:06 Carbon Dioxide 28.5 mmol/L (21-32) 04/02/19 05:06 BUN 13 mg/dL (7-18) 04/02/19 05:06 Creatinine 0.62 mg/dL (0.55-1.02) 04/02/19 05:06 Est GFR (MDRD) Af Amer > 60 (>60) 04/02/19 05:06 Est GFR (MDRD) Non-Af > 60 (>60) 04/02/19 05:06 Glucose 126 mg/dL (65-99) H 04/02/19 05:06 Calcium 8.4 mg/dL (8.5-10.1) L 04/02/19 05:06 Corrected Calcium 9.4 mg/dL (8.5-10.1) 04/02/19 05:06 Magnesium 2.0 mg/dL (1.7-2.9) 03/30/19 18:46 Total Bilirubin 0.50 mg/dL (0.2-1.0) 04/02/19 05:06 AST 16 Units/L (15-37) 04/02/19 05:06 ALT 12 Units/L (12-78) 04/02/19 05:06 Alkaline Phosphatase 129 Units/L (46-116) H 04/02/19 05:06 Creatine Kinase 20 Units/L (26-192) L 03/31/19 00:13 CK-MB (CK-2) < 1.0 ng/mL (0-4.0) 03/31/19 00:13 CK/CKMB % Calc 5.0 % (<4) 03/31/19 00:13 Troponin I 0.03 ng/mL (0-1.5) 03/31/19 00:13 B-Natriuretic Peptide 35.9 pg/mL (0-79) 04/01/19 05:07 Total Protein 6.7 g/dL (6.4-8.2) 04/02/19 05:06 Albumin 2.7 g/dL (3.4-5.0) L 04/02/19 05:06 Globulin 4.0 g/dL (2.5-4.5) 04/02/19 05:06 Albumin/Globulin Ratio 0.7 Ratio (1.1-2.1) L 04/02/19 05:06 Specimen Type Catherized urine 03/30/19 21:20 Urine Color Yellow (YELLOW) 03/30/19 21:20 Urine Appearance Slightly hazy (CLEAR) 03/30/19 21:20 Urine pH 6.0 (5.0 - 8.0) 03/30/19 21:20 Ur Specific [place] 1.020 (1.000-1.030) 03/30/19 21:20 Urine Protein 1+ (NEGATIVE) 03/30/19 21:20 Urine Glucose (UA) Negative (NEGATIVE) 03/30/19 21:20 Urine Ketones Negative (NEGATIVE) 03/30/19 21:20 Urine Occult Blood 2+ (NEGATIVE) 03/30/19 21:20 Urine Nitrite Negative (NEGATIVE) 03/30/19 21:20 Urine Bilirubin Negative (NEGATIVE) 03/30/19 21:20 Urine Urobilinogen Normal (NORMAL) 03/30/19 21:20 Ur Leukocyte Esterase Negative (NEGATIVE) 03/30/19 21:20 Urine RBC 5-10 /HPF (0-3) A 03/30/19 21:20 Urine WBC 0-2 /HPF (0-5) 03/30/19 21:20 Ur Squamous Epith Cells Few /HPF (NEGATIVE) 03/30/19 21:20 Ur Renal Epithelial Cell Rare /HPF (NEGATIVE) 03/30/19 21:20 Amorphous Sediment 1+ /HPF (NEGATIVE) 03/30/19 21:20 Urine Bacteria Trace /HPF (NEGATIVE) 03/30/19 21:20 Urine Mucus Many /HPF (NEGATIVE) 03/30/19 21:20 Ur Culture Indicated? No/not indicated 03/30/19 21:20 - Plan (1) Community acquired pneumonia Status: Acute Qualifiers: Laterality: left Lung location: lower lobe of lung Qualified Code(s): J18.1 - Lobar pneumonia, unspecified organism Plan: PNEUMONIA PROTOCOL, IV FORTAZ, IV DOXYCYCLINE, RESPIRATORY TX, LASIX 20MG IV BID, SUPPLEMENTAL OXYGEN, CONTINUE TO MONITOR (2) CHF (congestive heart failure) Status: Acute Qualifiers: Heart failure chronicity: acute on chronic Plan: IV LASIX, RESPIRATORY TX, SUPPLEMENTAL OXYGEN (3) Hypokalemia Status: Acute Plan: POTASSIUM PROTOCOL
--- NOTE | 2019-04-02 14:56 | CT ---
History: Shortness of breath and pneumonia Exam: CTA chest with contrast Comparison: None Technique: Axial spiral images were obtained from the clavicles through the adrenals after administration 75 cc Omnipaque 300. Coronal and sagittal 3D MIP reconstructions were performed. Automated dose control was utilized. Findings: There is mild calcified plaque throughout the aorta with mild dilatation of the ascending aorta measuring up to 3.8 cm. There is no dissection seen. The pulmonary arteries are well opacified and normal with no filling defect or vessel cut off. The adrenals are normal. The visualized upper abdomen is unremarkable. There is a 3 cm cyst along the upper pole right kidney. The liver is mildly enlarged with hypertrophy of the left . The lungs are hyperinflated and emphysematous with hazy reticular nodular and ground-glass infiltrates along both upper lobes posteriorly and extending into the lower lobes posteriorly and right middle lobe anteriorly . There is prominent bronchiectasis along the right middle lobe anteriorly . No effusion is seen . There is no pulmonary nodule or mass. There are moderate degenerative changes seen in the spine with moderate to severe wedge compression fractures along the T11 and T12 vertebra with no obvious displaced or retropulsed fragment . IMPRESSION: No evidence of a pulmonary embolus. Mildly atherosclerotic thoracic aorta with aneurysmal dilatation of the ascending aorta measuring up to 3.8 cm with no dissection. Recommend follow-up. Hazy infiltrates along the upper lobes posteriorly and extending into the lung bases and right middle lobe which could represent multisegmental bronchopneumonia, recommend follow-up . Focal bronchiectasis and scarring along the right middle lobe. Right renal cyst. Moderately severe severe compression fractures of T11 and T12 which do not appear significantly changed from the prior MRI of the thoracic spine of 03/16/2019. Recommend clinical follow-up. Reported By:
--- NOTE | 2019-04-02 17:51 | PCM.PROG ---
Progress Note - Progress Note for Day of Date of Exam: 04/01/19 - Subjective Subjective: WAS ADMITTED FOR TREATMENT OF CHF EXACERBATION AND PNEUMONIA. TODAY, SHE IS ALERT AND ORIENTED, LYING IN BED ON MORNING ROUNDS. SHE REPORTS THAT SHORTNESS OF BREATH SEEMS TO BE WORSENING. SHE ALSO CONTINUES WITH A PRODUCTIVE COUGH. ON EXAMINATION, HEART IS REGULAR IN RATE AND RHYTHM. BILATERAL LUNGS ARE NOTED WITH SCATTERED WHEEZING AND RHONCHI THROUGHOUT. ABDOMEN IS ROUND, SOFT, AND NON-TENDER WITH NORMAL BOWEL SOUNDS IN ALL QUADRANTS. BILATERAL LOWER EXTREMITIES ARE NOTED WITH TRACE EDEMA. HER VITALS THIS MORNING ARE: 98.0-106-18-94%-126/94. LABS WERE OBTAINED. ABNORMAL LAB VALUES INCLUDE THE FOLLOWING: HGB 9.9, HCT 29.8, GLUCOSE 120, CALCIUM 8.2, AST 14, ALK PHOS 120, TOTAL PROTEIN 6.3, ALUBMIN 2.5. BLOOD AND SPUTUM CULTURES ARE PENDING. A CHEST XRAY WAS OBTAINED THIS MORNING AND REVEALED: Continued cardiomegaly without congestive heart failure. No change diffuse interstitial lung disease. SHE IS CURRENTLY RECEIVING IV DOXY, IV FORTAZ, RESPIRATORY TX, AND SUPPLEMENTAL OXYGEN. WE WILL CHANGE DOXYCYCLINE TO CIPRO. WE WILL OBTAIN A BNP, D-DIMER, AND A CHEST CT WITH CONTRAST. OTHERWISE, WE WILL FOLLOW UP WITH AM LABS AND CHEST XRAY AND CONTINUE TO MONITOR. - Past Medical Family Social History Past Med/Fam/Surg Hx: No changes since H&P Allergies: Allergies No Known Drug Allergies Allergy (Verified 01/19/19 09:14) - Review of Systems ROS: No change since H&P - Vital Signs and I&O's Vital Signs: Temperature 98.2 F Pulse Rate [Brachial] 109 Pulse Rate 71 Respiratory Rate 20 Blood Pressure [Left Arm] 108/60 Blood Pressure [Right Arm] 104/56 Blood Pressure 144/69 O2 Sat by Pulse Oximetry 95 Intake and Output: Intake & Output 03/31/19 04/01/19 04/02/19 04/03/19 11:59 11:59 11:59 11:59 Intake Total 870 / 870 1550 / 1550 1690 / 1690 710 / 710 Output Total 1100 / 1100 3200 / 3200 1750 / 1750 Balance -230 / -230 -1650 / -1650 -60 / -60 710 / 710 - Physical Exam Oriented: Normal Eyes: Normal Ear: Normal Nose: Normal Throat: Normal Respiratory: Generalized, Diminished, Wheezes, Rhonchi Cardiovascular: Normal, Edema. negative: S3, S4, Murmur : Normal Auscultation: Bowel Sounds: Normal Tenderness: Normal Skin: Normal Musculoskeletal: Normal Psychiatric: Normal Mood Description: Calm Affect: Normal Speech Pattern: Clear, Appropriate - Laboratory and Diagnostics Result Diagrams: 04/02/19 05:06 04/02/19 08:23 Labs: 03/30/19 11:50 Sputum - Expectorated Sputum Sputum Culture - Preliminary 03/30/19 11:50 Sputum - Expectorated Sputum - Final 03/30/19 13:25 Blood Blood Culture - Preliminary 03/30/19 13:10 Blood Blood Culture - Preliminary Laboratory WBC 10.6 X10^3/uL (3.6-10.0) H 04/02/19 05:06 RBC 4.09 X10^6/uL (3.5-5.4) 04/02/19 05:06 Hgb 10.3 g/dL (12.0-16.0) L 04/02/19 05:06 Hct 31.6 % (36.0-47.0) L 04/02/19 05:06 MCV 77.1 fL (80.0-100.0) L 04/02/19 05:06 MCH 25.3 pg (27.0-34.0) L 04/02/19 05:06 MCHC 32.8 g/dL (33.0-35.0) L 04/02/19 05:06 RDW 21.6 % (11.6-16.5) H 04/02/19 05:06 Plt Count 327 X10^3/uL (150.0-450.0) 04/02/19 05:06 Plt Count Comment Adequate (ADEQUATE) 04/02/19 05:06 MPV 7.2 fL (7.4-11.0) L 04/02/19 05:06 Neut % (Auto) 81.2 % (42.0-75.0) H 04/02/19 05:06 Lymph % (Auto) 7.3 % (21.0-51.0) L 04/02/19 05:06 [place] % (Auto) 7.1 % (0.0-13.0) 04/02/19 05:06 Eos % (Auto) 2.6 % (0.9-2.9) 04/02/19 05:06 Baso % (Auto) 1.8 % (0.2-1.0) H 04/02/19 05:06 Neut # (Auto) 8.6 x10^3/uL (2.2-4.8) H 04/02/19 05:06 Lymph # (Auto) 0.8 X10^3/uL (1.3-2.9) L 04/02/19 05:06 [place] # (Auto) 0.8 x10^3/uL (0.3-0.8) 04/02/19 05:06 Eos # (Auto) 0.3 x10^3/uL (0.0-0.2) H 04/02/19 05:06 Baso # (Auto) 0.2 X10^3/uL (0.0-0.1) H 04/02/19 05:06 Absolute Nucleated RBC 0.1 /100WBC 04/02/19 05:06 Plt Morphology Comment Normal (NORMAL) 04/02/19 05:06 RBC Morphology Abnormal (NORMAL) A 04/02/19 05:06 Hypochromasia Slight A 04/02/19 05:06 Anisocytosis Slight A 04/02/19 05:06 D-Dimer 1150 ng/mL (0-400) H* 04/01/19 05:07 Sodium 134 mmol/L (136-145) L 04/02/19 05:06 Corrected Sodium 135 mmol/L (136-145) L 04/02/19 05:06 Potassium 4.0 mmol/L (3.5-5.1) 04/02/19 08:23 Chloride 97 mmol/L (98-107) L 04/02/19 05:06 Carbon Dioxide 28.5 mmol/L (21-32) 04/02/19 05:06 BUN 13 mg/dL (7-18) 04/02/19 05:06 Creatinine 0.62 mg/dL (0.55-1.02) 04/02/19 05:06 Est GFR (MDRD) Af Amer > 60 (>60) 04/02/19 05:06 Est GFR (MDRD) Non-Af > 60 (>60) 04/02/19 05:06 Glucose 126 mg/dL (65-99) H 04/02/19 05:06 Calcium 8.4 mg/dL (8.5-10.1) L 04/02/19 05:06 Corrected Calcium 9.4 mg/dL (8.5-10.1) 04/02/19 05:06 Magnesium 2.0 mg/dL (1.7-2.9) 03/30/19 18:46 Total Bilirubin 0.50 mg/dL (0.2-1.0) 04/02/19 05:06 AST 16 Units/L (15-37) 04/02/19 05:06 ALT 12 Units/L (12-78) 04/02/19 05:06 Alkaline Phosphatase 129 Units/L (46-116) H 04/02/19 05:06 Creatine Kinase 20 Units/L (26-192) L 03/31/19 00:13 CK-MB (CK-2) < 1.0 ng/mL (0-4.0) 03/31/19 00:13 CK/CKMB % Calc 5.0 % (<4) 03/31/19 00:13 Troponin I 0.03 ng/mL (0-1.5) 03/31/19 00:13 B-Natriuretic Peptide 35.9 pg/mL (0-79) 04/01/19 05:07 Total Protein 6.7 g/dL (6.4-8.2) 04/02/19 05:06 Albumin 2.7 g/dL (3.4-5.0) L 04/02/19 05:06 Globulin 4.0 g/dL (2.5-4.5) 04/02/19 05:06 Albumin/Globulin Ratio 0.7 Ratio (1.1-2.1) L 04/02/19 05:06 Specimen Type Catherized urine 03/30/19 21:20 Urine Color Yellow (YELLOW) 03/30/19 21:20 Urine Appearance Slightly hazy (CLEAR) 03/30/19 21:20 Urine pH 6.0 (5.0 - 8.0) 03/30/19 21:20 Ur Specific [place] 1.020 (1.000-1.030) 03/30/19 21:20 Urine Protein 1+ (NEGATIVE) 03/30/19 21:20 Urine Glucose (UA) Negative (NEGATIVE) 03/30/19 21:20 Urine Ketones Negative (NEGATIVE) 03/30/19 21:20 Urine Occult Blood 2+ (NEGATIVE) 03/30/19 21:20 Urine Nitrite Negative (NEGATIVE) 03/30/19 21:20 Urine Bilirubin Negative (NEGATIVE) 03/30/19 21:20 Urine Urobilinogen Normal (NORMAL) 03/30/19 21:20 Ur Leukocyte Esterase Negative (NEGATIVE) 03/30/19 21:20 Urine RBC 5-10 /HPF (0-3) A 03/30/19 21:20 Urine WBC 0-2 /HPF (0-5) 03/30/19 21:20 Ur Squamous Epith Cells Few /HPF (NEGATIVE) 03/30/19 21:20 Ur Renal Epithelial Cell Rare /HPF (NEGATIVE) 03/30/19 21:20 Amorphous Sediment 1+ /HPF (NEGATIVE) 03/30/19 21:20 Urine Bacteria Trace /HPF (NEGATIVE) 03/30/19 21:20 Urine Mucus Many /HPF (NEGATIVE) 03/30/19 21:20 Ur Culture Indicated? No/not indicated 03/30/19 21:20 - Plan (1) Community acquired pneumonia Status: Acute Qualifiers: Laterality: left Lung location: lower lobe of lung Qualified Code(s): J18.1 - Lobar pneumonia, unspecified organism Plan: PNEUMONIA PROTOCOL, IV FORTAZ, IV DOXYCYCLINE, RESPIRATORY TX, LASIX 20MG IV BID, SUPPLEMENTAL OXYGEN, CONTINUE TO MONITOR (2) CHF (congestive heart failure) Status: Acute Qualifiers: Heart failure chronicity: acute on chronic Plan: IV LASIX, RESPIRATORY TX, SUPPLEMENTAL OXYGEN (3) Hypokalemia Status: Acute Plan: POTASSIUM PROTOCOL
[2019-04-02] MEDS: NEURONTIN CAP 300 MG PO SCH (21:31)
[2019-04-03] MEDS: DUONEB 0.5 MG/3 MG NEB SCH ×4 (01:08→17:25)
--- NOTE | 2019-04-03 06:11 | RAD ---
Chest AP portable Indication: Dyspnea Comparison: 04/02/2019 Findings: There is no pneumothorax. There is cardiomegaly with increased interstitial markings. No large effusion or dense focal consolidation seen. Impression: Cardiomegaly and COPD change with chronic lung changes, probably improved from the prior suggesting resolving edema or pneumonia. Follow-up to resolution. Reported By:
[2019-04-03 06:18] LABS: ALANINE AMINOTRANSFERASE 12 Units/L (12-78); ALBUMIN 2.5 g/dL (3.4-5.0); ALKALINE PHOSPHATASE 118 Units/L (46-116); ASPARTATE AMINO TRANSFERASE 15 Units/L (15-37); BLOOD UREA NITROGEN 7 mg/dL (7-18); CALCIUM 7.8 mg/dL (8.5-10.1); CARBON DIOXIDE 27.6 mmol/L (21-32); CHLORIDE 100 mmol/L (98-107); CREATININE 0.32 mg/dL (0.55-1.02); SODIUM 136 mmol/L (136-145); eGFR NON BLACK RACES > 60 (>60)
[2019-04-03] MEDS: FORTAZ or TAZICEF VIAL INJ IVP SCH ×2 (06:31→13:12)
[2019-04-03] MEDS: LASIX IVP SCH ×2 (06:31→17:05)
[2019-04-03 07:04] LABS: BASOPHILS # (AUTO) 0.1 X10^3/uL (0.0-0.1); BASOPHILS % (AUTO) 0.8 % (0.2-1.0); EOSINOPHILS # (AUTO) 0.3 x10^3/uL (0.0-0.2); HEMATOCRIT 34.5 % (36.0-47.0); HEMOGLOBIN 11.2 g/dL (12.0-16.0); LYMPHOCYTES # (AUTO) 0.7 X10^3/uL (1.3-2.9); MEAN CORPUSCULAR HEMOGLOBIN 25.2 pg (27.0-34.0); MEAN CORPUSCULAR HGB CONC 32.3 g/dL (33.0-35.0); MEAN CORPUSCULAR VOLUME 77.8 fL (80.0-100.0); MEAN PLATELET VOLUME 7.2 fL (7.4-11.0); MONOCYTES # (AUTO) 0.9 x10^3/uL (0.3-0.8); MONOCYTES % (AUTO) 9.7 % (0.0-13.0); NEUTROPHILS # (AUTO) 7.1 x10^3/uL (2.2-4.8); NEUTROPHILS % (AUTO) 78.5 % (42.0-75.0); PLATELET COUNT 409 X10^3/uL (150.0-450.0); RED BLOOD COUNT 4.44 X10^6/uL (3.5-5.4); RED CELL DISTRIBUTION WIDTH 21.6 % (11.6-16.5); WHITE BLOOD COUNT 9.1 X10^3/uL (3.6-10.0)
[2019-04-03 07:22] LABS: PLATELET MORPHOLOGY COMMENT NORMAL (NORMAL)
[2019-04-03 07:23] LABS: ANISOCYTOSIS 1+
[2019-04-03] MEDS ORDERED: NORVASC TAB 2.5 MG ONE (08:14)
[2019-04-03] MEDS: MICRO K EXTEN CAP 10 MEQ PO SCH ×2 (08:33→21:32)
[2019-04-03] MEDS: LOPRESSOR TAB 50 MG PO SCH (08:34)
[2019-04-03] MEDS: MAG-OX TAB PO SCH ×2 (08:34→21:32)
[2019-04-03] MEDS: NORVASC TAB 2.5 MG PO SCH (08:34)
[2019-04-03] MEDS: FOLIC ACID TAB 1 MG PO SCH (08:34)
[2019-04-03] MEDS: MAXZIDE 37.5/25 MG PO SCH (08:34)
[2019-04-03] MEDS: LOVENOX INJ 40 MG SYR SC SCH (08:35)
[2019-04-03] MEDS: CIPRO IV 400 MG PREMIX* 400 MG/200 ML IV.SOLN. IV SCH (08:35)
[2019-04-03] MEDS ORDERED: METHOTREXATE PO SCH (09:00)
[2019-04-03] MEDS: NEURONTIN CAP 300 MG PO SCH (21:31)
[2019-04-04] MEDS: DUONEB 0.5 MG/3 MG NEB SCH ×4 (00:38→16:03)
[2019-04-04] MEDS: FORTAZ or TAZICEF VIAL INJ IVP SCH ×4 (02:05→21:42)
[2019-04-04] MEDS: CIPRO IV 400 MG PREMIX* 400 MG/200 ML IV.SOLN. IV SCH ×3 (02:05→21:39)
[2019-04-04 05:34] LABS: BASOPHILS # (AUTO) 0.1 X10^3/uL (0.0-0.1); BASOPHILS % (AUTO) 0.9 % (0.2-1.0); EOSINOPHILS # (AUTO) 0.3 x10^3/uL (0.0-0.2); EOSINOPHILS % (AUTO) 4.2 % (0.9-2.9); HEMATOCRIT 29.9 % (36.0-47.0); HEMOGLOBIN 9.7 g/dL (12.0-16.0); LYMPHOCYTES # (AUTO) 0.6 X10^3/uL (1.3-2.9); LYMPHOCYTES % (AUTO) 8.5 % (21.0-51.0); MEAN CORPUSCULAR HEMOGLOBIN 24.9 pg (27.0-34.0); MEAN CORPUSCULAR HGB CONC 32.3 g/dL (33.0-35.0); MEAN CORPUSCULAR VOLUME 76.9 fL (80.0-100.0); MEAN PLATELET VOLUME 7.3 fL (7.4-11.0); MONOCYTES # (AUTO) 0.7 x10^3/uL (0.3-0.8); MONOCYTES % (AUTO) 10.3 % (0.0-13.0); NEUTROPHILS # (AUTO) 5.3 x10^3/uL (2.2-4.8); NEUTROPHILS % (AUTO) 76.1 % (42.0-75.0); PLATELET COUNT 398 X10^3/uL (150.0-450.0); RED BLOOD COUNT 3.88 X10^6/uL (3.5-5.4); RED CELL DISTRIBUTION WIDTH 21.8 % (11.6-16.5)
[2019-04-04 05:43] LABS: ANISOCYTOSIS 1+; HYPOCHROMASIA SLIGHT; PLATELET MORPHOLOGY COMMENT NORMAL (NORMAL)
[2019-04-04 05:47] LABS: ALANINE AMINOTRANSFERASE 12 Units/L (12-78); ALBUMIN 2.4 g/dL (3.4-5.0); ALKALINE PHOSPHATASE 115 Units/L (46-116); ASPARTATE AMINO TRANSFERASE 13 Units/L (15-37); BLOOD UREA NITROGEN 9 mg/dL (7-18); CALCIUM 8.2 mg/dL (8.5-10.1); CARBON DIOXIDE 28.1 mmol/L (21-32); CHLORIDE 99 mmol/L (98-107); COR CA(FOR HYPOALB) 9.5 mg/dL (8.5-10.1); CREATININE 0.59 mg/dL (0.55-1.02); SODIUM 135 mmol/L (136-145); TOTAL PROTEIN 6.2 g/dL (6.4-8.2); eGFR NON BLACK RACES > 60 (>60)
--- NOTE | 2019-04-04 06:52 | RAD ---
Examination: Portable AP chest History: SOB Comparison 04/03/2019 Findings: Continued cardiomegaly and no change in appearance of the diffuse bilateral interstitial process in the lungs. There is no superimposed consolidation, developing mass or pleural fluid. Impression: Stable cardiomegaly and bilateral interstitial pulmonary process most consistent with fibrosis. Reported By:
[2019-04-04] MEDS: LASIX IVP SCH ×2 (07:04→16:17)
[2019-04-04] MEDS ORDERED: NORVASC TAB 2.5 MG ONE (10:07)
[2019-04-04] MEDS: NORVASC TAB 2.5 MG PO SCH (10:19)
[2019-04-04] MEDS: LOVENOX INJ 40 MG SYR SC SCH (10:19)
[2019-04-04] MEDS: LOPRESSOR TAB 50 MG PO SCH (10:23)
[2019-04-04] MEDS: MAG-OX TAB PO SCH ×2 (10:23→21:41)
[2019-04-04] MEDS: MAXZIDE 37.5/25 MG PO SCH (10:24)
[2019-04-04] MEDS: FOLIC ACID TAB 1 MG PO SCH (10:24)
[2019-04-04] MEDS: MICRO K EXTEN CAP 10 MEQ PO SCH ×2 (10:41→21:41)
[2019-04-04] MEDS ORDERED: POTASSIUM CHL 40 MEQ/NS 0.45% 500 ML IV PRN (14:20)
[2019-04-04] MEDS ORDERED: POTASSIUM CHLORIDE LIQ 20 MEQ UDC PO PRN (14:20)
[2019-04-04] MEDS ORDERED: K-RIDER 10 MEQ/NS 100 ML 10 MEQ/100 ML BAG IV PRN (14:20)
[2019-04-04] MEDS ORDERED: K-DUR TAB 20 MEQ PO PRN (14:20)
[2019-04-04] MEDS ORDERED: POTASSIUM CHL 60 MEQ/NS 0.45% 500 ML IV PRN (14:20)
[2019-04-04] MEDS ORDERED: MICRO K EXTEN CAP 10 MEQ PO PRN (14:20)
[2019-04-04] MEDS ORDERED: KLOR-CON PO PRN (14:20)
--- NOTE | 2019-04-04 14:26 | PCM.PROG ---
Progress Note - Progress Note for Day of Date of Exam: 04/02/19 - Subjective Subjective: WAS ADMITTED FOR TREATMENT OF CHF EXACERBATION AND PNEUMONIA. TODAY, SHE IS ALERT AND ORIENTED, LYING IN BED ON MORNING ROUNDS. SHE REPORTS THAT SHORTNESS OF BREATH SEEMS TO BE WORSENING. SHE ALSO CONTINUES WITH A PRODUCTIVE COUGH. ON EXAMINATION, HEART IS REGULAR IN RATE AND RHYTHM. BILATERAL LUNGS ARE NOTED WITH SCATTERED WHEEZING AND RHONCHI THROUGHOUT. ABDOMEN IS ROUND, SOFT, AND NON-TENDER WITH NORMAL BOWEL SOUNDS IN ALL QUADRANTS. BILATERAL LOWER EXTREMITIES ARE NOTED WITH TRACE EDEMA. HER VITALS THIS MORNING ARE: 98.0-71-20-96%-123/88. LABS WERE OBTAINED. ABNORMAL LAB VALUES INCLUDE THE FOLLOWING: WBC 10.6, HGB 10.3, HCT 31.6, SODIUM 134, POTASSIUM 3.3, CHLORIDE 97, GLUCOSE 126, CALCIUM 8.4, ALK PHOS 129, ALBUMIN 2.7. BLOOD AND SPUTUM CULTURES ARE PENDING. PRELIMINARY SPUTUM CULTURE REPORS GROWTH OF GRAM NEGATIVE RODS. A CHEST CTA WAS OBTAINED THIS MORNING AND REVEALED: No evidence of a pulmonary embolus. Mildly atherosclerotic thoracic aorta with aneurysmal dilatation of the ascending aorta measuring up to 3.8 cm with no dissection. Recommend follow-up. Hazy infiltrates along the upper lobes posteriorly and extending into the lung bases and right middle lobe which could represent multisegmental bronchopneumonia, recommend follow-up. Focal bronchiectasis and scarring along the right middle lobe. Right renal cyst. Moderately severe severe compression fractures of T11 and T12 which do not appear significantly changed from the prior MRI of the thoracic spine of 03/16/2019. Recommend clinical follow-up. SHE IS CURRENTLY RECEIVING IV CIPRO, IV FORTAZ, RESPIRATORY TX, AND SUPPLEMENTAL OXYGEN. WE WILL CONTINUE WITH CURRENT PLAN OF CARE TODAY. OTHERWISE, WE WILL FOLLOW UP WITH AM LABS AND CHEST XRAY AND CONTINUE TO MONITOR. - Past Medical Family Social History Past Med/Fam/Surg Hx: No changes since H&P Allergies: Allergies No Known Drug Allergies Allergy (Verified 01/19/19 09:14) - Review of Systems ROS: No change since H&P - Vital Signs and I&O's Vital Signs: Temperature 98.5 F Pulse Rate [Brachial] 89 Pulse Rate 83 Respiratory Rate 20 Blood Pressure [Left Arm] 119/64 Blood Pressure [Right Arm] 134/69 Blood Pressure 144/69 O2 Sat by Pulse Oximetry 98 Intake and Output: Intake & Output 04/02/19 04/03/19 04/04/19 04/05/19 11:59 11:59 11:59 11:59 Intake Total 1690 / 1690 1869 / 1869 176 / 176 Output Total 175 / 1750 Balance -60 / -60 1869 / 1759 - Physical Exam Oriented: Normal Eyes: Normal Ear: Normal Nose: Normal Throat: Normal Respiratory: Generalized, Diminished, Wheezes, Rhonchi Cardiovascular: Normal, Edema. negative: S3, S4, Murmur : Normal Auscultation: Bowel Sounds: Normal Palpation: Normal Tenderness: Normal Skin: Normal Musculoskeletal: Normal Psychiatric: Normal Mood Description: Calm Affect: Normal Speech Pattern: Clear, Appropriate - Laboratory and Diagnostics Result Diagrams: 04/04/19 05:11 04/04/19 05:11 Labs: 03/30/19 11:50 Sputum - Expectorated Sputum Sputum Culture - Final Pseudomonas Aeruginosa 03/30/19 11:50 Sputum - Expectorated Sputum - Final 03/30/19 13:25 Blood Blood Culture - Preliminary 03/30/19 13:10 Blood Blood Culture - Preliminary Laboratory WBC 7.0 X10^3/uL (3.6-10.0) 04/04/19 05:11 RBC 3.88 X10^6/uL (3.5-5.4) 04/04/19 05:11 Hgb 9.7 g/dL (12.0-16.0) L 04/04/19 05:11 Hct 29.9 % (36.0-47.0) L 04/04/19 05:11 MCV 76.9 fL (80.0-100.0) L 04/04/19 05:11 MCH 24.9 pg (27.0-34.0) L 04/04/19 05:11 MCHC 32.3 g/dL (33.0-35.0) L 04/04/19 05:11 RDW 21.8 % (11.6-16.5) H 04/04/19 05:11 Plt Count 398 X10^3/uL (150.0-450.0) 04/04/19 05:11 Plt Count Comment Adequate (ADEQUATE) 04/04/19 05:11 MPV 7.3 fL (7.4-11.0) L 04/04/19 05:11 Neut % (Auto) 76.1 % (42.0-75.0) H 04/04/19 05:11 Lymph % (Auto) 8.5 % (21.0-51.0) L 04/04/19 05:11 [place] % (Auto) 10.3 % (0.0-13.0) 04/04/19 05:11 Eos % (Auto) 4.2 % (0.9-2.9) H 04/04/19 05:11 Baso % (Auto) 0.9 % (0.2-1.0) 04/04/19 05:11 Neut # (Auto) 5.3 x10^3/uL (2.2-4.8) H 04/04/19 05:11 Lymph # (Auto) 0.6 X10^3/uL (1.3-2.9) L 04/04/19 05:11 [place] # (Auto) 0.7 x10^3/uL (0.3-0.8) 04/04/19 05:11 Eos # (Auto) 0.3 x10^3/uL (0.0-0.2) H 04/04/19 05:11 Baso # (Auto) 0.1 X10^3/uL (0.0-0.1) 04/04/19 05:11 Absolute Nucleated RBC 0.1 /100WBC 04/04/19 05:11 Plt Morphology Comment Normal (NORMAL) 04/04/19 05:11 RBC Morphology Abnormal (NORMAL) A 04/04/19 05:11 Hypochromasia Slight A 04/04/19 05:11 Anisocytosis 1+ A 04/04/19 05:11 D-Dimer 1150 ng/mL (0-400) H* 04/01/19 05:07 Sodium 135 mmol/L (136-145) L 04/04/19 05:11 Corrected Sodium TNP 04/04/19 05:11 Potassium 3.3 mmol/L (3.5-5.1) L 04/04/19 05:11 Chloride 99 mmol/L (98-107) 04/04/19 05:11 Carbon Dioxide 28.1 mmol/L (21-32) 04/04/19 05:11 BUN 9 mg/dL (7-18) 04/04/19 05:11 Creatinine 0.59 mg/dL (0.55-1.02) 04/04/19 05:11 Est GFR (MDRD) Af Amer > 60 (>60) 04/04/19 05:11 Est GFR (MDRD) Non-Af > 60 (>60) 04/04/19 05:11 Glucose 108 mg/dL (65-99) H 04/04/19 05:11 Calcium 8.2 mg/dL (8.5-10.1) L 04/04/19 05:11 Corrected Calcium 9.5 mg/dL (8.5-10.1) 04/04/19 05:11 Magnesium 2.0 mg/dL (1.7-2.9) 03/30/19 18:46 Total Bilirubin 0.50 mg/dL (0.2-1.0) 04/04/19 05:11 AST 13 Units/L (15-37) L 04/04/19 05:11 ALT 12 Units/L (12-78) 04/04/19 05:11 Alkaline Phosphatase 115 Units/L (46-116) 04/04/19 05:11 Creatine Kinase 20 Units/L (26-192) L 03/31/19 00:13 CK-MB (CK-2) < 1.0 ng/mL (0-4.0) 03/31/19 00:13 CK/CKMB % Calc 5.0 % (<4) 03/31/19 00:13 Troponin I 0.03 ng/mL (0-1.5) 03/31/19 00:13 B-Natriuretic Peptide 35.9 pg/mL (0-79) 04/01/19 05:07 Total Protein 6.2 g/dL (6.4-8.2) L 04/04/19 05:11 Albumin 2.4 g/dL (3.4-5.0) L 04/04/19 05:11 Globulin 3.8 g/dL (2.5-4.5) 04/04/19 05:11 Albumin/Globulin Ratio 0.6 Ratio (1.1-2.1) L 04/04/19 05:11 Specimen Type Catherized urine 03/30/19 21:20 Urine Color Yellow (YELLOW) 03/30/19 21:20 Urine Appearance Slightly hazy (CLEAR) 03/30/19 21:20 Urine pH 6.0 (5.0 - 8.0) 03/30/19 21:20 Ur Specific [place] 1.020 (1.000-1.030) 03/30/19 21:20 Urine Protein 1+ (NEGATIVE) 03/30/19 21:20 Urine Glucose (UA) Negative (NEGATIVE) 03/30/19 21:20 Urine Ketones Negative (NEGATIVE) 03/30/19 21:20 Urine Occult Blood 2+ (NEGATIVE) 03/30/19 21:20 Urine Nitrite Negative (NEGATIVE) 03/30/19 21:20 Urine Bilirubin Negative (NEGATIVE) 03/30/19 21:20 Urine Urobilinogen Normal (NORMAL) 03/30/19 21:20 Ur Leukocyte Esterase Negative (NEGATIVE) 03/30/19 21:20 Urine RBC 5-10 /HPF (0-3) A 03/30/19 21:20 Urine WBC 0-2 /HPF (0-5) 03/30/19 21:20 Ur Squamous Epith Cells Few /HPF (NEGATIVE) 03/30/19 21:20 Ur Renal Epithelial Cell Rare /HPF (NEGATIVE) 03/30/19 21:20 Amorphous Sediment 1+ /HPF (NEGATIVE) 03/30/19 21:20 Urine Bacteria Trace /HPF (NEGATIVE) 03/30/19 21:20 Urine Mucus Many /HPF (NEGATIVE) 03/30/19 21:20 Ur Culture Indicated? No/not indicated 03/30/19 21:20 - Plan (1) Community acquired pneumonia Status: Acute Qualifiers: Laterality: left Lung location: lower lobe of lung Qualified Code(s): J18.1 - Lobar pneumonia, unspecified organism Plan: PNEUMONIA PROTOCOL, IV FORTAZ, IV CIPRO, RESPIRATORY TX, LASIX 20MG IV BID, SUPPLEMENTAL OXYGEN, CONTINUE TO MONITOR (2) CHF (congestive heart failure) Status: Acute Qualifiers: Heart failure chronicity: acute on chronic Plan: IV LASIX, RESPIRATORY TX, SUPPLEMENTAL OXYGEN (3) Hypokalemia Status: Acute Plan: POTASSIUM PROTOCOL
--- NOTE | 2019-04-04 14:59 | PCM.PROG ---
Progress Note - Progress Note for Day of Date of Exam: 04/03/19 - Subjective Subjective: WAS ADMITTED FOR TREATMENT OF CHF EXACERBATION AND PNEUMONIA. TODAY, SHE IS ALERT AND ORIENTED, LYING IN BED ON MORNING ROUNDS. SHE CONTINUES WITH SHORTNESS OF BREATH AND PRODUCTIVE COUGH. ON EXAMINATION, HEART IS REGULAR IN RATE AND RHYTHM. BILATERAL LUNGS ARE NOTED WITH SCATTERED WHEEZING AND RHONCHI THROUGHOUT. ABDOMEN IS ROUND, SOFT, AND NON-TENDER WITH NORMAL BOWEL SOUNDS IN ALL QUADRANTS. BILATERAL LOWER EXTREMITIES ARE NOTED WITH TRACE EDEMA. HER VITALS THIS MORNING ARE: 98.6-90-20-96%-140/66. LABS WERE OBTAINED. ABNORMAL LAB VALUES INCLUDE THE FOLLOWING: HGB 11.2, HCT 34.5, CREATININE 0.32, GLUCOSE 103, CALCIUM 7.8, ALK PHOS 118, TOTAL PROTEIN 6.0, ALBUMIN 2.5. SPUTUM CULTURES REPORTED GROWTH OF PSEUDOMONAS AERUGINOSA. A CHEST XRAY WAS OBTAINED THIS MORNING AND REVEALED: Cardiomegaly and COPD change with chronic lung changes, probably improved from the prior suggesting resolving edema or pneumonia. Follow-up to resolution. Recommend clinical follow-up. SHE IS CURRENTLY RECEIVING IV CIPRO, IV FORTAZ, RESPIRATORY TX, AND SUPPLEMENTAL OXYGEN. WE WILL CONTINUE WITH CURRENT PLAN OF CARE TODAY. WE WILL OBTAIN SPUTUM FOR AFB CULTURES. OTHERWISE, WE WILL FOLLOW UP WITH AM LABS AND CHEST XRAY AND CONTINUE TO MONITOR. - Past Medical Family Social History Past Med/Fam/Surg Hx: No changes since H&P Allergies: Allergies No Known Drug Allergies Allergy (Verified 01/19/19 09:14) - Review of Systems ROS: No change since H&P - Vital Signs and I&O's Vital Signs: Temperature 98.5 F Pulse Rate [Brachial] 89 Pulse Rate 83 Respiratory Rate 20 Blood Pressure [Left Arm] 119/64 Blood Pressure [Right Arm] 134/69 Blood Pressure 144/69 O2 Sat by Pulse Oximetry 98 Intake and Output: Intake & Output 04/02/19 04/03/19 04/04/19 04/05/19 11:59 11:59 11:59 11:59 Intake Total 1690 / 1690 1870 / 1870 1760 / 1760 Output Total 1750 / 1750 Balance -60 / -60 0 / 1870 1760 / 1760 - Physical Exam Oriented: Normal Eyes: Normal Ear: Normal Nose: Normal Throat: Normal Respiratory: Generalized, Diminished, Wheezes, Rhonchi Cardiovascular: Normal, Edema. negative: S3, S4, Murmur : Normal Auscultation: Bowel Sounds: Normal Palpation: Normal Tenderness: Normal Skin: Normal Musculoskeletal: Normal Psychiatric: Normal Mood Description: Calm Affect: Normal Speech Pattern: Clear, Appropriate - Laboratory and Diagnostics Result Diagrams: 04/04/19 05:11 04/04/19 05:11 Labs: 03/30/19 11:50 Sputum - Expectorated Sputum Sputum Culture - Final Pseudomonas Aeruginosa 03/30/19 11:50 Sputum - Expectorated Sputum - Final 03/30/19 13:25 Blood Blood Culture - Preliminary 03/30/19 13:10 Blood Blood Culture - Preliminary Laboratory WBC 7.0 X10^3/uL (3.6-10.0) 04/04/19 05:11 RBC 3.88 X10^6/uL (3.5-5.4) 04/04/19 05:11 Hgb 9.7 g/dL (12.0-16.0) L 04/04/19 05:11 Hct 29.9 % (36.0-47.0) L 04/04/19 05:11 MCV 76.9 fL (80.0-100.0) L 04/04/19 05:11 MCH 24.9 pg (27.0-34.0) L 04/04/19 05:11 MCHC 32.3 g/dL (33.0-35.0) L 04/04/19 05:11 RDW 21.8 % (11.6-16.5) H 04/04/19 05:11 Plt Count 398 X10^3/uL (150.0-450.0) 04/04/19 05:11 Plt Count Comment Adequate (ADEQUATE) 04/04/19 05:11 MPV 7.3 fL (7.4-11.0) L 04/04/19 05:11 Neut % (Auto) 76.1 % (42.0-75.0) H 04/04/19 05:11 Lymph % (Auto) 8.5 % (21.0-51.0) L 04/04/19 05:11 [place] % (Auto) 10.3 % (0.0-13.0) 04/04/19 05:11 Eos % (Auto) 4.2 % (0.9-2.9) H 04/04/19 05:11 Baso % (Auto) 0.9 % (0.2-1.0) 04/04/19 05:11 Neut # (Auto) 5.3 x10^3/uL (2.2-4.8) H 04/04/19 05:11 Lymph # (Auto) 0.6 X10^3/uL (1.3-2.9) L 04/04/19 05:11 [place] # (Auto) 0.7 x10^3/uL (0.3-0.8) 04/04/19 05:11 Eos # (Auto) 0.3 x10^3/uL (0.0-0.2) H 04/04/19 05:11 Baso # (Auto) 0.1 X10^3/uL (0.0-0.1) 04/04/19 05:11 Absolute Nucleated RBC 0.1 /100WBC 04/04/19 05:11 Plt Morphology Comment Normal (NORMAL) 04/04/19 05:11 RBC Morphology Abnormal (NORMAL) A 04/04/19 05:11 Hypochromasia Slight A 04/04/19 05:11 Anisocytosis 1+ A 04/04/19 05:11 D-Dimer 1150 ng/mL (0-400) H* 04/01/19 05:07 Sodium 135 mmol/L (136-145) L 04/04/19 05:11 Corrected Sodium TNP 04/04/19 05:11 Potassium 3.3 mmol/L (3.5-5.1) L 04/04/19 05:11 Chloride 99 mmol/L (98-107) 04/04/19 05:11 Carbon Dioxide 28.1 mmol/L (21-32) 04/04/19 05:11 BUN 9 mg/dL (7-18) 04/04/19 05:11 Creatinine 0.59 mg/dL (0.55-1.02) 04/04/19 05:11 Est GFR (MDRD) Af Amer > 60 (>60) 04/04/19 05:11 Est GFR (MDRD) Non-Af > 60 (>60) 04/04/19 05:11 Glucose 108 mg/dL (65-99) H 04/04/19 05:11 Calcium 8.2 mg/dL (8.5-10.1) L 04/04/19 05:11 Corrected Calcium 9.5 mg/dL (8.5-10.1) 04/04/19 05:11 Magnesium 2.7 mg/dL (1.7-2.9) 04/04/19 05:11 Total Bilirubin 0.50 mg/dL (0.2-1.0) 04/04/19 05:11 AST 13 Units/L (15-37) L 04/04/19 05:11 ALT 12 Units/L (12-78) 04/04/19 05:11 Alkaline Phosphatase 115 Units/L (46-116) 04/04/19 05:11 Creatine Kinase 20 Units/L (26-192) L 03/31/19 00:13 CK-MB (CK-2) < 1.0 ng/mL (0-4.0) 03/31/19 00:13 CK/CKMB % Calc 5.0 % (<4) 03/31/19 00:13 Troponin I 0.03 ng/mL (0-1.5) 03/31/19 00:13 B-Natriuretic Peptide 35.9 pg/mL (0-79) 04/01/19 05:07 Total Protein 6.2 g/dL (6.4-8.2) L 04/04/19 05:11 Albumin 2.4 g/dL (3.4-5.0) L 04/04/19 05:11 Globulin 3.8 g/dL (2.5-4.5) 04/04/19 05:11 Albumin/Globulin Ratio 0.6 Ratio (1.1-2.1) L 04/04/19 05:11 Specimen Type Catherized urine 03/30/19 21:20 Urine Color Yellow (YELLOW) 03/30/19 21:20 Urine Appearance Slightly hazy (CLEAR) 03/30/19 21:20 Urine pH 6.0 (5.0 - 8.0) 03/30/19 21:20 Ur Specific [place] 1.020 (1.000-1.030) 03/30/19 21:20 Urine Protein 1+ (NEGATIVE) 03/30/19 21:20 Urine Glucose (UA) Negative (NEGATIVE) 03/30/19 21:20 Urine Ketones Negative (NEGATIVE) 03/30/19 21:20 Urine Occult Blood 2+ (NEGATIVE) 03/30/19 21:20 Urine Nitrite Negative (NEGATIVE) 03/30/19 21:20 Urine Bilirubin Negative (NEGATIVE) 03/30/19 21:20 Urine Urobilinogen Normal (NORMAL) 03/30/19 21:20 Ur Leukocyte Esterase Negative (NEGATIVE) 03/30/19 21:20 Urine RBC 5-10 /HPF (0-3) A 03/30/19 21:20 Urine WBC 0-2 /HPF (0-5) 03/30/19 21:20 Ur Squamous Epith Cells Few /HPF (NEGATIVE) 03/30/19 21:20 Ur Renal Epithelial Cell Rare /HPF (NEGATIVE) 03/30/19 21:20 Amorphous Sediment 1+ /HPF (NEGATIVE) 03/30/19 21:20 Urine Bacteria Trace /HPF (NEGATIVE) 03/30/19 21:20 Urine Mucus Many /HPF (NEGATIVE) 03/30/19 21:20 Ur Culture Indicated? No/not indicated 03/30/19 21:20 - Plan (1) Community acquired pneumonia Status: Acute Qualifiers: Laterality: left Lung location: lower lobe of lung Qualified Code(s): J18.1 - Lobar pneumonia, unspecified organism Plan: PNEUMONIA PROTOCOL, IV FORTAZ, IV CIPRO, RESPIRATORY TX, LASIX 20MG IV BID, SUPPLEMENTAL OXYGEN, CONTINUE TO MONITOR (2) CHF (congestive heart failure) Status: Acute Qualifiers: Heart failure chronicity: acute on chronic Plan: IV LASIX, RESPIRATORY TX, SUPPLEMENTAL OXYGEN (3) Hypokalemia Status: Acute Plan: POTASSIUM PROTOCOL
[2019-04-04] MEDS: NEURONTIN CAP 300 MG PO SCH (21:41)
[2019-04-05] MEDS: DUONEB 0.5 MG/3 MG NEB SCH ×5 (00:50→16:42)
[2019-04-05] MEDS ORDERED: NS 250 ML IV 250 ML IV ONE (05:32)
[2019-04-05 05:39] LABS: BASOPHILS % (AUTO) 0.6 % (0.2-1.0); EOSINOPHILS # (AUTO) 0.2 x10^3/uL (0.0-0.2); EOSINOPHILS % (AUTO) 3.5 % (0.9-2.9); HEMATOCRIT 29.5 % (36.0-47.0); HEMOGLOBIN 9.7 g/dL (12.0-16.0); LYMPHOCYTES # (AUTO) 0.5 X10^3/uL (1.3-2.9); LYMPHOCYTES % (AUTO) 8.9 % (21.0-51.0); MEAN CORPUSCULAR HEMOGLOBIN 25.2 pg (27.0-34.0); MEAN CORPUSCULAR HGB CONC 32.8 g/dL (33.0-35.0); MEAN CORPUSCULAR VOLUME 76.9 fL (80.0-100.0); MEAN PLATELET VOLUME 7.4 fL (7.4-11.0); MONOCYTES # (AUTO) 0.5 x10^3/uL (0.3-0.8); NEUTROPHILS # (AUTO) 4.9 x10^3/uL (2.2-4.8); PLATELET COUNT 427 X10^3/uL (150.0-450.0); RED BLOOD COUNT 3.84 X10^6/uL (3.5-5.4); RED CELL DISTRIBUTION WIDTH 21.3 % (11.6-16.5); WHITE BLOOD COUNT 6.1 X10^3/uL (3.6-10.0)
[2019-04-05 05:42] LABS: ALANINE AMINOTRANSFERASE 16 Units/L (12-78); ALBUMIN 2.5 g/dL (3.4-5.0); ALKALINE PHOSPHATASE 114 Units/L (46-116); ASPARTATE AMINO TRANSFERASE 17 Units/L (15-37); BLOOD UREA NITROGEN 11 mg/dL (7-18); CALCIUM 8.2 mg/dL (8.5-10.1); CARBON DIOXIDE 27.7 mmol/L (21-32); CHLORIDE 95 mmol/L (98-107); COR CA(FOR HYPOALB) 9.4 mg/dL (8.5-10.1); COR NA(FOR HYPERGLY) 132 mmol/L (136-145); CREATININE 0.63 mg/dL (0.55-1.02); SODIUM 132 mmol/L (136-145); TOTAL PROTEIN 6.3 g/dL (6.4-8.2); eGFR NON BLACK RACES > 60 (>60)
[2019-04-05] MEDS: FORTAZ or TAZICEF VIAL INJ IVP SCH ×2 (06:03→13:15)
[2019-04-05] MEDS: LASIX IVP SCH (06:03)
[2019-04-05 06:13] LABS: HYPOCHROMASIA 1+; PLATELET MORPHOLOGY COMMENT NORMAL (NORMAL)
[2019-04-05 06:15] LABS: TARGET CELLS PRESENT
--- NOTE | 2019-04-05 07:47 | RAD ---
History: Dyspnea and chest pain. Exam: Single portable view of the chest. Comparison: 04/04/2019. Findings: The trachea is midline. The cardiomediastinal silhouette is enlarged. Right mid lung zone linear scarring remains with chronic appearing interstitial thickening/densities throughout the lung [place]. No new infiltrates, pneumothorax, or effusion is seen. These findings can be seen with chronic lung disease. Please medically correlate. No other changes observed Impression: Stable cardiomegaly and diffuse interstitial disease, as above. Reported By:
[2019-04-05] MEDS ORDERED: NORVASC TAB 2.5 MG ONE (08:09)
[2019-04-05] MEDS: LOVENOX INJ 40 MG SYR SC SCH (09:14)
[2019-04-05] MEDS: MICRO K EXTEN CAP 10 MEQ PO SCH ×2 (09:14→21:27)
[2019-04-05] MEDS: CIPRO IV 400 MG PREMIX* 400 MG/200 ML IV.SOLN. IV SCH (09:14)
[2019-04-05] MEDS: FOLIC ACID TAB 1 MG PO SCH (09:15)
[2019-04-05] MEDS: LOPRESSOR TAB 50 MG PO SCH (09:15)
[2019-04-05] MEDS: NORVASC TAB 2.5 MG PO SCH (09:15)
[2019-04-05] MEDS: MAXZIDE 37.5/25 MG PO SCH (09:15)
[2019-04-05] MEDS: MAG-OX TAB PO SCH ×2 (09:15→21:27)
[2019-04-05] MEDS ORDERED: NS 100 ML IV + SPIKE MINIBAG* 100 ML IV ONE (13:15)
--- NOTE | 2019-04-05 17:03 | PCM.PROG ---
Progress Note - Progress Note for Day of Date of Exam: 04/04/19 - Subjective Subjective: WAS ADMITTED FOR TREATMENT OF CHF EXACERBATION AND PNEUMONIA. TODAY, SHE IS ALERT AND ORIENTED, LYING IN BED ON MORNING ROUNDS. SHE CONTINUES WITH SHORTNESS OF BREATH AND PRODUCTIVE COUGH, BUT REPORTS SLIGHT IMPROVEMENT SINCE YESTERDAY. ON EXAMINATION, HEART IS REGULAR IN RATE AND R HYTHM. BILATERAL LUNGS ARE NOTED WITH SCATTERED WHEEZING AND RHONCHI THROUGHOUT. ABDOMEN IS ROUND, SOFT, AND NON-TENDER WITH NORMAL BOWEL SOUNDS IN ALL QUADRANTS. BILATERAL LOWER EXTREMITIES ARE NOTED WITH TRACE EDEMA. HER VITALS THIS MORNING ARE: 98.8-91-20-95%-113/66. LABS WERE OBTAINED. ABNORMAL LAB VALUES INCLUDE THE FOLLOWING: HGB 9.7, HCT 29.9, SODIUM 135, POTASSIUM 3.3, GLUCOSE 108, CALCIUM 8.2, AST 13, TOTAL PROTEIN 6.2, ALBUMIN 2.4. SPUTUM CULTURES REPORTED GROWTH OF PSEUDOMONAS AERUGINOSA. A CHEST XRAY WAS OBTAINED THIS MORNING AND REVEALED: Stable cardiomegaly and bilateral interstitial pulmonary process most consistent with fibrosis. SHE IS CURRENTLY RECEIVING IV CIPRO, IV FORTAZ, RESPIRATORY TX, AND SUPPLEMENTAL OXYGEN. WE WILL CONTINUE WITH CURRENT PLAN OF CARE TODAY. OTHERWISE, WE WILL FOLLOW UP WITH AM LABS AND CHEST XRAY AND CONTINUE TO MONITOR. - Past Medical Family Social History Past Med/Fam/Surg Hx: No changes since H&P Allergies: Allergies No Known Drug Allergies Allergy (Verified 01/19/19 09:14) - Review of Systems ROS: No change since H&P - Vital Signs and I&O's Vital Signs: Temperature 98.7 F Pulse Rate [Brachial] 82 Pulse Rate 104 Respiratory Rate 20 Blood Pressure [Left Arm] 131/80 Blood Pressure [Right Arm] 134/69 Blood Pressure 144/69 O2 Sat by Pulse Oximetry 94 Intake and Output: Intake & Output 04/03/19 04/04/19 04/05/19 04/06/19 11:59 11:59 11:59 11:59 Intake Total 1869 / 0 1760 / 1760 1574 / 1574 840 / 840 Balance 1869 / 1869 1760 / 1760 1574 / 1574 840 / 840 - Physical Exam Oriented: Normal Eyes: Normal Ear: Normal Nose: Normal Throat: Normal Respiratory: Generalized, Diminished, Wheezes, Rhonchi Cardiovascular: Normal, Edema. negative: S3, S4, Murmur : Normal Auscultation: Bowel Sounds: Normal Palpation: Normal Tenderness: Normal Skin: Normal Musculoskeletal: Normal Psychiatric: Normal Mood Description: Calm Affect: Normal Speech Pattern: Clear, Appropriate - Laboratory and Diagnostics Result Diagrams: 04/05/19 05:00 04/05/19 05:00 Labs: 03/30/19 13:25 Blood Blood Culture - Final 03/30/19 13:10 Blood Blood Culture - Final 03/30/19 11:50 Sputum - Expectorated Sputum Sputum Culture - Final Pseudomonas Aeruginosa 03/30/19 11:50 Sputum - Expectorated Sputum - Final Laboratory WBC 6.1 X10^3/uL (3.6-10.0) 04/05/19 05:00 RBC 3.84 X10^6/uL (3.5-5.4) 04/05/19 05:00 Hgb 9.7 g/dL (12.0-16.0) L 04/05/19 05:00 Hct 29.5 % (36.0-47.0) L 04/05/19 05:00 MCV 76.9 fL (80.0-100.0) L 04/05/19 05:00 MCH 25.2 pg (27.0-34.0) L 04/05/19 05:00 MCHC 32.8 g/dL (33.0-35.0) L 04/05/19 05:00 RDW 21.3 % (11.6-16.5) H 04/05/19 05:00 Plt Count 427 X10^3/uL (150.0-450.0) 04/05/19 05:00 Plt Count Comment Adequate (ADEQUATE) 04/05/19 05:00 MPV 7.4 fL (7.4-11.0) 04/05/19 05:00 Neut % (Auto) 79.0 % (42.0-75.0) H 04/05/19 05:00 Lymph % (Auto) 8.9 % (21.0-51.0) L 04/05/19 05:00 [place] % (Auto) 8.0 % (0.0-13.0) 04/05/19 05:00 Eos % (Auto) 3.5 % (0.9-2.9) H 04/05/19 05:00 Baso % (Auto) 0.6 % (0.2-1.0) 04/05/19 05:00 Neut # (Auto) 4.9 x10^3/uL (2.2-4.8) H 04/05/19 05:00 Lymph # (Auto) 0.5 X10^3/uL (1.3-2.9) L 04/05/19 05:00 [place] # (Auto) 0.5 x10^3/uL (0.3-0.8) 04/05/19 05:00 Eos # (Auto) 0.2 x10^3/uL (0.0-0.2) 04/05/19 05:00 Baso # (Auto) 0.0 X10^3/uL (0.0-0.1) 04/05/19 05:00 Absolute Nucleated RBC 0.1 /100WBC 04/05/19 05:00 Plt Morphology Comment Normal (NORMAL) 04/05/19 05:00 RBC Morphology Abnormal (NORMAL) A 04/05/19 05:00 Hypochromasia 1+ A 04/05/19 05:00 Anisocytosis 1+ A 04/04/19 05:11 Target Cells Present 04/05/19 05:00 D-Dimer 1150 ng/mL (0-400) H* 04/01/19 05:07 Sodium 132 mmol/L (136-145) L 04/05/19 05:00 Corrected Sodium 132 mmol/L (136-145) L 04/05/19 05:00 Potassium 3.9 mmol/L (3.5-5.1) 04/05/19 05:00 Chloride 95 mmol/L (98-107) L 04/05/19 05:00 Carbon Dioxide 27.7 mmol/L (21-32) 04/05/19 05:00 BUN 11 mg/dL (7-18) 04/05/19 05:00 Creatinine 0.63 mg/dL (0.55-1.02) 04/05/19 05:00 Est GFR (MDRD) Af Amer > 60 (>60) 04/05/19 05:00 Est GFR (MDRD) Non-Af > 60 (>60) 04/05/19 05:00 Glucose 112 mg/dL (65-99) H 04/05/19 05:00 Calcium 8.2 mg/dL (8.5-10.1) L 04/05/19 05:00 Corrected Calcium 9.4 mg/dL (8.5-10.1) 04/05/19 05:00 Magnesium 2.7 mg/dL (1.7-2.9) 04/04/19 05:11 Total Bilirubin 0.50 mg/dL (0.2-1.0) 04/05/19 05:00 AST 17 Units/L (15-37) 04/05/19 05:00 ALT 16 Units/L (12-78) 04/05/19 05:00 Alkaline Phosphatase 114 Units/L (46-116) 04/05/19 05:00 Creatine Kinase 20 Units/L (26-192) L 03/31/19 00:13 CK-MB (CK-2) < 1.0 ng/mL (0-4.0) 03/31/19 00:13 CK/CKMB % Calc 5.0 % (<4) 03/31/19 00:13 Troponin I 0.03 ng/mL (0-1.5) 03/31/19 00:13 B-Natriuretic Peptide 35.9 pg/mL (0-79) 04/01/19 05:07 Total Protein 6.3 g/dL (6.4-8.2) L 04/05/19 05:00 Albumin 2.5 g/dL (3.4-5.0) L 04/05/19 05:00 Globulin 3.8 g/dL (2.5-4.5) 04/05/19 05:00 Albumin/Globulin Ratio 0.7 Ratio (1.1-2.1) L 04/05/19 05:00 Specimen Type Catherized urine 03/30/19 21:20 Urine Color Yellow (YELLOW) 03/30/19 21:20 Urine Appearance Slightly hazy (CLEAR) 03/30/19 21:20 Urine pH 6.0 (5.0 - 8.0) 03/30/19 21:20 Ur Specific [place] 1.020 (1.000-1.030) 03/30/19 21:20 Urine Protein 1+ (NEGATIVE) 03/30/19 21:20 Urine Glucose (UA) Negative (NEGATIVE) 03/30/19 21:20 Urine Ketones Negative (NEGATIVE) 03/30/19 21:20 Urine Occult Blood 2+ (NEGATIVE) 03/30/19 21:20 Urine Nitrite Negative (NEGATIVE) 03/30/19 21:20 Urine Bilirubin Negative (NEGATIVE) 03/30/19 21:20 Urine Urobilinogen Normal (NORMAL) 03/30/19 21:20 Ur Leukocyte Esterase Negative (NEGATIVE) 03/30/19 21:20 Urine RBC 5-10 /HPF (0-3) A 03/30/19 21:20 Urine WBC 0-2 /HPF (0-5) 03/30/19 21:20 Ur Squamous Epith Cells Few /HPF (NEGATIVE) 03/30/19 21:20 Ur Renal Epithelial Cell Rare /HPF (NEGATIVE) 03/30/19 21:20 Amorphous Sediment 1+ /HPF (NEGATIVE) 03/30/19 21:20 Urine Bacteria Trace /HPF (NEGATIVE) 03/30/19 21:20 Urine Mucus Many /HPF (NEGATIVE) 03/30/19 21:20 Ur Culture Indicated? No/not indicated 03/30/19 21:20 - Plan (1) Community acquired pneumonia Status: Acute Qualifiers: Laterality: left Lung location: lower lobe of lung Qualified Code(s): J18.1 - Lobar pneumonia, unspecified organism Plan: PNEUMONIA PROTOCOL, IV FORTAZ, IV CIPRO, RESPIRATORY TX, LASIX 20MG IV BID, SUPPLEMENTAL OXYGEN, CONTINUE TO MONITOR (2) CHF (congestive heart failure) Status: Acute Qualifiers: Heart failure chronicity: acute on chronic Plan: IV LASIX, RESPIRATORY TX, SUPPLEMENTAL OXYGEN (3) Hypokalemia Status: Acute Plan: POTASSIUM PROTOCOL
[2019-04-05] MEDS: LASIX PO SCH (17:42)
[2019-04-05] MEDS: NEURONTIN CAP 300 MG PO SCH (21:26)
[2019-04-05] MEDS: CIPRO TAB 500 MG PO SCH (21:27)
[2019-04-06] MEDS: DUONEB 0.5 MG/3 MG NEB SCH ×2 (00:50→05:03)
[2019-04-06 04:54] LABS: BASOPHILS % (AUTO) 0.5 % (0.2-1.0); EOSINOPHILS # (AUTO) 0.4 x10^3/uL (0.0-0.2); EOSINOPHILS % (AUTO) 4.8 % (0.9-2.9); HEMATOCRIT 30.8 % (36.0-47.0); HEMOGLOBIN 10.1 g/dL (12.0-16.0); LYMPHOCYTES # (AUTO) 0.6 X10^3/uL (1.3-2.9); LYMPHOCYTES % (AUTO) 7.4 % (21.0-51.0); MEAN CORPUSCULAR HGB CONC 32.7 g/dL (33.0-35.0); MEAN CORPUSCULAR VOLUME 76.2 fL (80.0-100.0); MEAN PLATELET VOLUME 7.5 fL (7.4-11.0); MONOCYTES # (AUTO) 0.9 x10^3/uL (0.3-0.8); MONOCYTES % (AUTO) 10.2 % (0.0-13.0); NEUTROPHILS # (AUTO) 6.5 x10^3/uL (2.2-4.8); NEUTROPHILS % (AUTO) 77.1 % (42.0-75.0); PLATELET COUNT 473 X10^3/uL (150.0-450.0); RED BLOOD COUNT 4.05 X10^6/uL (3.5-5.4); RED CELL DISTRIBUTION WIDTH 21.7 % (11.6-16.5); WHITE BLOOD COUNT 8.5 X10^3/uL (3.6-10.0)
[2019-04-06 05:03] LABS: ALANINE AMINOTRANSFERASE 16 Units/L (12-78); ALBUMIN 2.6 g/dL (3.4-5.0); ALKALINE PHOSPHATASE 121 Units/L (46-116); ASPARTATE AMINO TRANSFERASE 15 Units/L (15-37); BLOOD UREA NITROGEN 10 mg/dL (7-18); CALCIUM 8.4 mg/dL (8.5-10.1); CARBON DIOXIDE 26.9 mmol/L (21-32); CHLORIDE 93 mmol/L (98-107); COR CA(FOR HYPOALB) 9.5 mg/dL (8.5-10.1); CREATININE 0.63 mg/dL (0.55-1.02); SODIUM 128 mmol/L (136-145); TOTAL PROTEIN 6.5 g/dL (6.4-8.2); eGFR NON BLACK RACES > 60 (>60)
[2019-04-06 05:25] LABS: PLATELET MORPHOLOGY COMMENT NORMAL (NORMAL)
[2019-04-06 05:26] LABS: ANISOCYTOSIS 1+; HYPOCHROMASIA SLIGHT; TARGET CELLS PRESENT
[2019-04-06] MEDS: LASIX PO SCH (06:00)
[2019-04-06] MEDS ORDERED: NORVASC TAB 2.5 MG ONE (10:13)
[2019-04-06] MEDS: LOPRESSOR TAB 50 MG PO SCH (10:54)
[2019-04-06] MEDS: MAG-OX TAB PO SCH (10:55)
[2019-04-06] MEDS: MAXZIDE 37.5/25 MG PO SCH (10:55)
[2019-04-06] MEDS: MICRO K EXTEN CAP 10 MEQ PO SCH (10:55)
[2019-04-06] MEDS: CIPRO TAB 500 MG PO SCH (10:56)
[2019-04-06] MEDS: FOLIC ACID TAB 1 MG PO SCH (10:56)
[2019-04-06] MEDS: LOVENOX INJ 40 MG SYR SC SCH (10:57)
[2019-04-06] MEDS: NORVASC TAB 2.5 MG PO SCH (10:57)
[2019-04-06 13:09] VITALS: BP 136/70
[2019-04-06] MEDS ORDERED: LASIX PO SCH (17:00)
[2019-04-06] MEDS ORDERED: DUONEB 0.5 MG/3 MG NEB SCH (18:00)
--- NOTE | 2019-04-06 19:53 | PCM.PROG ---
Progress Note - Progress Note for Day of Date of Exam: 04/05/19 - Subjective Subjective: WAS ADMITTED FOR TREATMENT OF CHF EXACERBATION AND PNEUMONIA. TODAY, SHE IS ALERT AND ORIENTED, LYING IN BED ON MORNING ROUNDS. SHE CONTINUES WITH SHORTNESS OF BREATH AND PRODUCTIVE COUGH, BUT CONTINUES TO REPORT IMPROVEMENT. ON EXAMINATION, HEART IS REGULAR IN RATE AND RHYTHM. BILATERAL LUNGS ARE NOTED WITH SCATTERED WHEEZING AND RHONCHI THROUGHOUT. ABDOMEN IS ROUND, SOFT, AND NON-TENDER WITH NORMAL BOWEL SOUNDS IN ALL QUADRANTS. BILATERAL LOWER EXTREMITIES ARE NOTED WITH TRACE EDEMA. HER VITALS THIS MORNING ARE: 98.5-104-20-94%-130/62. LABS WERE OBTAINED. ABNORMAL LAB VALUES INCLUDE THE FOLLOWING: HGB 9.7, HCT 29.5, SODIUM 132, CHLORIDE 95, GLUCOSE 112, CALCIUM 8.2, TOTAL PROTEIN 6.3, ALBUMIN 2.5. SPUTUM CULTURES REPORTED GROWTH OF PSEUDOMONAS AERUGINOSA. A CHEST XRAY WAS OBTAINED THIS MORNING AND REVEALED: Stable cardiomegaly and diffuse interstitial disease, as above. SHE IS CURRENTLY RECEIVING IV CIPRO, IV FORTAZ, RESPIRATORY TX, AND SUPPLEMENTAL OXYGEN. WE WILL CONTINUE WITH CURRENT PLAN OF CARE TODAY. OTHERWISE, WE WILL FOLLOW UP WITH AM LABS AND CHEST XRAY AND CONTINUE TO MONITOR. - Past Medical Family Social History Past Med/Fam/Surg Hx: No changes since H&P Allergies: Allergies No Known Drug Allergies Allergy (Verified 01/19/19 09:14) - Review of Systems ROS: No change since H&P - Vital Signs and I&O's Vital Signs: Temperature 98.1 F Pulse Rate [Brachial] 92 Pulse Rate 104 Respiratory Rate 18 Blood Pressure [Left Arm] 136/70 Blood Pressure [Right Arm] 111/65 Blood Pressure 144/69 O2 Sat by Pulse Oximetry 96 Intake and Output: Intake & Output 04/04/19 04/05/19 04/06/19 04/07/19 11:59 11:59 11:59 11:59 Intake Total 1760 / 1760 1574 / 1574 1196 / 1196 Balance 1760 / 1760 1574 / 1574 1196 / 1196 - Physical Exam Oriented: Normal Eyes: Normal Ear: Normal Nose: Normal Throat: Normal Respiratory: Generalized, Diminished, Wheezes, Rhonchi Cardiovascular: Normal, Edema. negative: S3, S4, Murmur : Normal Auscultation: Bowel Sounds: Normal Tenderness: Normal Skin: Normal Musculoskeletal: Normal Psychiatric: Normal Mood Description: Calm Affect: Normal Speech Pattern: Clear, Appropriate - Laboratory and Diagnostics Result Diagrams: 04/06/19 04:19 04/06/19 04:19 Labs: 03/30/19 13:25 Blood Blood Culture - Final 03/30/19 13:10 Blood Blood Culture - Final 03/30/19 11:50 Sputum - Expectorated Sputum Sputum Culture - Final Pseudomonas Aeruginosa 03/30/19 11:50 Sputum - Expectorated Sputum - Final Laboratory WBC 8.5 X10^3/uL (3.6-10.0) 04/06/19 04:19 RBC 4.05 X10^6/uL (3.5-5.4) 04/06/19 04:19 Hgb 10.1 g/dL (12.0-16.0) L 04/06/19 04:19 Hct 30.8 % (36.0-47.0) L 04/06/19 04:19 MCV 76.2 fL (80.0-100.0) L 04/06/19 04:19 MCH 25.0 pg (27.0-34.0) L 04/06/19 04:19 MCHC 32.7 g/dL (33.0-35.0) L 04/06/19 04:19 RDW 21.7 % (11.6-16.5) H 04/06/19 04:19 Plt Count 473 X10^3/uL (150.0-450.0) H 04/06/19 04:19 Plt Count Comment Adequate (ADEQUATE) 04/06/19 04:19 MPV 7.5 fL (7.4-11.0) 04/06/19 04:19 Neut % (Auto) 77.1 % (42.0-75.0) H 04/06/19 04:19 Lymph % (Auto) 7.4 % (21.0-51.0) L 04/06/19 04:19 [place] % (Auto) 10.2 % (0.0-13.0) 04/06/19 04:19 Eos % (Auto) 4.8 % (0.9-2.9) H 04/06/19 04:19 Baso % (Auto) 0.5 % (0.2-1.0) 04/06/19 04:19 Neut # (Auto) 6.5 x10^3/uL (2.2-4.8) H 04/06/19 04:19 Lymph # (Auto) 0.6 X10^3/uL (1.3-2.9) L 04/06/19 04:19 [place] # (Auto) 0.9 x10^3/uL (0.3-0.8) H 04/06/19 04:19 Eos # (Auto) 0.4 x10^3/uL (0.0-0.2) H 04/06/19 04:19 Baso # (Auto) 0.0 X10^3/uL (0.0-0.1) 04/06/19 04:19 Absolute Nucleated RBC 0.1 /100WBC 04/06/19 04:19 Plt Morphology Comment Normal (NORMAL) 04/06/19 04:19 RBC Morphology Abnormal (NORMAL) A 04/06/19 04:19 Hypochromasia Slight A 04/06/19 04:19 Anisocytosis 1+ A 04/06/19 04:19 Target Cells Present 04/06/19 04:19 D-Dimer 1150 ng/mL (0-400) H* 04/01/19 05:07 Sodium 128 mmol/L (136-145) L 04/06/19 04:19 Corrected Sodium TNP 04/06/19 04:19 Potassium 3.7 mmol/L (3.5-5.1) 04/06/19 04:19 Chloride 93 mmol/L (98-107) L 04/06/19 04:19 Carbon Dioxide 26.9 mmol/L (21-32) 04/06/19 04:19 BUN 10 mg/dL (7-18) 04/06/19 04:19 Creatinine 0.63 mg/dL (0.55-1.02) 04/06/19 04:19 Est GFR (MDRD) Af Amer > 60 (>60) 04/06/19 04:19 Est GFR (MDRD) Non-Af > 60 (>60) 04/06/19 04:19 Glucose 103 mg/dL (65-99) H 04/06/19 04:19 Calcium 8.4 mg/dL (8.5-10.1) L 04/06/19 04:19 Corrected Calcium 9.5 mg/dL (8.5-10.1) 04/06/19 04:19 Magnesium 2.7 mg/dL (1.7-2.9) 04/04/19 05:11 Total Bilirubin 0.60 mg/dL (0.2-1.0) 04/06/19 04:19 AST 15 Units/L (15-37) 04/06/19 04:19 ALT 16 Units/L (12-78) 04/06/19 04:19 Alkaline Phosphatase 121 Units/L (46-116) H 04/06/19 04:19 Creatine Kinase 20 Units/L (26-192) L 03/31/19 00:13 CK-MB (CK-2) < 1.0 ng/mL (0-4.0) 03/31/19 00:13 CK/CKMB % Calc 5.0 % (<4) 03/31/19 00:13 Troponin I 0.03 ng/mL (0-1.5) 03/31/19 00:13 B-Natriuretic Peptide 35.9 pg/mL (0-79) 04/01/19 05:07 Total Protein 6.5 g/dL (6.4-8.2) 04/06/19 04:19 Albumin 2.6 g/dL (3.4-5.0) L 04/06/19 04:19 Globulin 3.9 g/dL (2.5-4.5) 04/06/19 04:19 Albumin/Globulin Ratio 0.7 Ratio (1.1-2.1) L 04/06/19 04:19 Specimen Type Catherized urine 03/30/19 21:20 Urine Color Yellow (YELLOW) 03/30/19 21:20 Urine Appearance Slightly hazy (CLEAR) 03/30/19 21:20 Urine pH 6.0 (5.0 - 8.0) 03/30/19 21:20 Ur Specific [place] 1.020 (1.000-1.030) 03/30/19 21:20 Urine Protein 1+ (NEGATIVE) 03/30/19 21:20 Urine Glucose (UA) Negative (NEGATIVE) 03/30/19 21:20 Urine Ketones Negative (NEGATIVE) 03/30/19 21:20 Urine Occult Blood 2+ (NEGATIVE) 03/30/19 21:20 Urine Nitrite Negative (NEGATIVE) 03/30/19 21:20 Urine Bilirubin Negative (NEGATIVE) 03/30/19 21:20 Urine Urobilinogen Normal (NORMAL) 03/30/19 21:20 Ur Leukocyte Esterase Negative (NEGATIVE) 03/30/19 21:20 Urine RBC 5-10 /HPF (0-3) A 03/30/19 21:20 Urine WBC 0-2 /HPF (0-5) 03/30/19 21:20 Ur Squamous Epith Cells Few /HPF (NEGATIVE) 03/30/19 21:20 Ur Renal Epithelial Cell Rare /HPF (NEGATIVE) 03/30/19 21:20 Amorphous Sediment 1+ /HPF (NEGATIVE) 03/30/19 21:20 Urine Bacteria Trace /HPF (NEGATIVE) 03/30/19 21:20 Urine Mucus Many /HPF (NEGATIVE) 03/30/19 21:20 Ur Culture Indicated? No/not indicated 03/30/19 21:20 - Plan (1) Community acquired pneumonia Status: Acute Qualifiers: Laterality: left Lung location: lower lobe of lung Qualified Code(s): J18.1 - Lobar pneumonia, unspecified organism Plan: PNEUMONIA PROTOCOL, IV FORTAZ, IV CIPRO, RESPIRATORY TX, LASIX 20MG IV B ID, SUPPLEMENTAL OXYGEN, CONTINUE TO MONITOR (2) CHF (congestive heart failure) Status: Acute Qualifiers: Heart failure chronicity: acute on chronic Plan: IV LASIX, RESPIRATORY TX, SUPPLEMENTAL OXYGEN (3) Hypokalemia Status: Acute Plan: POTASSIUM PROTOCOL
[2019-04-06] MEDS ORDERED: MAG-OX TAB PO SCH (21:00)
[2019-04-06] MEDS ORDERED: NEURONTIN CAP 300 MG PO SCH (21:00)
[2019-04-06] MEDS ORDERED: MICRO K EXTEN CAP 10 MEQ PO SCH (21:00)
[2019-04-07] MEDS ORDERED: FOLIC ACID TAB 1 MG PO SCH (09:00)
[2019-04-07] MEDS ORDERED: MAXZIDE 37.5/25 MG PO SCH (09:00)
[2019-04-07] MEDS ORDERED: NORVASC TAB 2.5 MG PO SCH (09:00)
[2019-04-07] MEDS ORDERED: LOVENOX INJ 40 MG SYR SC SCH (09:00)
[2019-04-07] MEDS ORDERED: LOPRESSOR TAB 50 MG PO SCH (09:00)
== END 2019-04-06 12:50 | disposition home or self-care (01) | DRG 291 ==
LOC: ER 10:32 → MED/SURG 10:32
PROVIDERS: ADMIT Internal Medicine; ATTEND Internal Medicine
DX: R60.0 Localized edema; J15.1 Pneumonia due to Pseudomonas; E87.6 Hypokalemia; I50.9 Heart failure, unspecified; R26.89 Other abnormalities of gait and mobility
CPT/HCPCS: 36415; 71010; 71045; 71275; 80053; 81001; 82550; 82553; 83735; 83880; 84132; 84484; 85025; 85378; 87015; 87040; 87070; 87077; 87116; 87186; 87205; 87206; 93005; 93306; 94640; 94760; 94762; 96365; 96374; 96375; 97110; 97162; 97167; 97535; 99284; A4216; A4222; G0378; J0713; J0744; J1650; J1940; J2270; J3490; J7040; J7050; J7060; J7620; J8610

== ENCOUNTER 2019-05-05 13:39 | Inpatient (IN) ==
[2019-05-05 14:38] VITALS: BMI 25.4
[2019-05-05] MEDS ORDERED: TUSSIONEX PENNKINETIC SUSP PO PRN (15:28)
[2019-05-05] MEDS ORDERED: HumuLIN R SUBCUT PRN (15:32)
[2019-05-05 16:06] LABS: BASOPHILS # (AUTO) 0.1 X10^3/uL (0.0-0.1); BASOPHILS % (AUTO) 1.2 % (0.2-1.0); HEMATOCRIT 33.6 % (36.0-47.0); HEMOGLOBIN 10.8 g/dL (12.0-16.0); LYMPHOCYTES # (AUTO) 0.5 X10^3/uL (1.3-2.9); LYMPHOCYTES % (AUTO) 5.8 % (21.0-51.0); MEAN CORPUSCULAR HGB CONC 32.1 g/dL (33.0-35.0); MEAN CORPUSCULAR VOLUME 71.8 fL (80.0-100.0); MEAN PLATELET VOLUME 6.9 fL (7.4-11.0); MONOCYTES # (AUTO) 0.9 x10^3/uL (0.3-0.8); MONOCYTES % (AUTO) 11.4 % (0.0-13.0); NEUTROPHILS # (AUTO) 6.8 x10^3/uL (2.2-4.8); NEUTROPHILS % (AUTO) 81.6 % (42.0-75.0); PLATELET COUNT 487 X10^3/uL (150.0-450.0); RED BLOOD COUNT 4.68 X10^6/uL (3.5-5.4); RED CELL DISTRIBUTION WIDTH 22.8 % (11.6-16.5); WHITE BLOOD COUNT 8.3 X10^3/uL (3.6-10.0)
[2019-05-05] MEDS ORDERED: TYLENOL 325 MG TAB PO PRN (16:06)
[2019-05-05 16:18] LABS: ALANINE AMINOTRANSFERASE 23 Units/L (12-78); ALKALINE PHOSPHATASE 99 Units/L (46-116); ASPARTATE AMINO TRANSFERASE 28 Units/L (15-37); BLOOD UREA NITROGEN 19 mg/dL (7-18); CALCIUM 8.6 mg/dL (8.5-10.1); CARBON DIOXIDE 35.1 mmol/L (21-32); CHLORIDE 93 mmol/L (98-107); COR CA(FOR HYPOALB) 9.4 mg/dL (8.5-10.1); CREATININE 0.83 mg/dL (0.55-1.02); SODIUM 133 mmol/L (136-145); TOTAL PROTEIN 6.8 g/dL (6.4-8.2); eGFR NON BLACK RACES > 60 (>60)
[2019-05-05 16:21] LABS: PLATELET MORPHOLOGY COMMENT NORMAL (NORMAL)
[2019-05-05 16:22] LABS: ANISOCYTOSIS 2+; HYPOCHROMASIA 1+
[2019-05-05] MEDS ORDERED: POTASSIUM CHLORIDE LIQ 20 MEQ UDC PO PRN (16:27)
[2019-05-05] MEDS ORDERED: MICRO K EXTEN CAP 10 MEQ PO PRN (16:27)
[2019-05-05] MEDS ORDERED: KLOR-CON PO PRN (16:27)
[2019-05-05] MEDS ORDERED: POTASSIUM CHL 60 MEQ/NS 0.45% 500 ML IV PRN (16:27)
[2019-05-05] MEDS ORDERED: POTASSIUM CHL 40 MEQ/NS 0.45% 500 ML IV PRN (16:27)
[2019-05-05] MEDS ORDERED: K-RIDER 10 MEQ/NS 100 ML 10 MEQ/100 ML BAG IV PRN (16:27)
[2019-05-05] MEDS ORDERED: NS 1/2 1000 ML IV 1,000 ML IV ONE (16:41)
--- NOTE | 2019-05-05 16:45 | RAD ---
HISTORY: Shortness of breath Study: Single-view of the chest Comparison: April 05, 2019 Findings: The trachea is midline. The cardiac silhouette is enlarged. Diffuse interstitial changes are again seen throughout both lungs. Patchy bibasilar infiltrate cannot be excluded. Scarring is again seen within the mid to upper right lung. The aortic knob is partially calcified. IMPRESSION: Cardiomegaly. Diffuse interstitial changes similar to prior exam. Questionable patchy bibasilar infiltrate. Correlate clinically. Reported By:
[2019-05-05] MEDS: VSL#3 PO SCH (16:46)
[2019-05-05] MEDS: FORTAZ or TAZICEF VIAL INJ 1 G in NS 100 ML IV + SPIKE MINIBAG* 100 ML IV SCH ×2 (16:48→22:05)
[2019-05-05] MEDS: ROBITUSSIN DM PO SCH ×2 (16:49→20:00)
[2019-05-05] MEDS: LEVAQUIN PREMIX IV 750 MG 750 MG/150 ML BAG IV SCH (16:49)
[2019-05-05] MEDS: DUONEB 0.5 MG/3 MG NEB SCH ×2 (17:24→20:56)
--- NOTE | 2019-05-05 18:39 | DR.UPDATE ---
H&P Update History and Physical Update: History and Physical reviewed and patient examined. Changes noted: Yes with the following: RETURNED TO THE OFFICE TODAY FOR COMPLAINTS OF SEVERE SHORTNESS OF BREATH. EXAMINATION REVEALED BILATERAL WHEEZING AND RHONCHI. SHE REPORTS THAT SYMPTOMS STARTED AFTER HER APPOINTMENT YESTERDAY. HE OXYGEN SATURATIONS HAVE BEEN IN THE LOW 90S ON ROOM AIR. SHE WAS TREATED FOR PNEUMONIA A MONTH AGO. SHE COMPLETED A TWO WEEK COURSE OF CIPRO APPROXIMATELY TWO WEEKS AGO. SHE WAS ADMITTED FOR FURTHER EVALUATION AND TREATMENT OF BRONCHOPNEUMONIA. ON ADMISSION, WE PLAN TO OBTAIN LABS, CHEST XRAY, AND BLOOD/SPUTUM CULTURES. WE WILL START IV LEVAQUIN, IV FORTAZ, RESPIRATORY TREATMENTS, AND SUPPLEMENTAL OXYGEN. OTHERWISE, WE PLAN TO FOLLOW UP WITH AM LABS AND CONTINUE TO MONITOR. Prescription drug monitoring program results: PDMP was not reviewed
[2019-05-05] MEDS ORDERED: NORCO 10/325 TAB PO PRN (19:46)
[2019-05-05] MEDS: SNACK - Diabetic Appropriate PO SCH (20:00)
[2019-05-05] MEDS: PULMICORT NEB TX 0.5 MG NEB SCH (20:57)
[2019-05-05] MEDS: MICRO K EXTEN CAP 10 MEQ PO SCH (22:05)
[2019-05-05] MEDS: LASIX PO SCH (22:14)
[2019-05-05] MEDS: LOPRESSOR TAB 50 MG PO SCH (22:15)
[2019-05-05] MEDS: TESSALON PERLES PO SCH (22:15)
[2019-05-05] MEDS: SOLU-Medrol 40 MG VIAL IVP SCH (22:16)
[2019-05-05] MEDS: NEURONTIN CAP 300 MG PO SCH (22:16)
[2019-05-05 22:44] LABS: CRYPTOSPORIDIUM PARVUM ANTIGEN NEGATIVE (NEGATIVE); GIARDIA LAMBLIA ANTIGEN NEGATIVE (NEGATIVE)
[2019-05-06] MEDS: TESSALON PERLES PO SCH ×3 (05:30→22:42)
[2019-05-06] MEDS: FORTAZ or TAZICEF VIAL INJ 1 G in NS 100 ML IV + SPIKE MINIBAG* 100 ML IV SCH ×3 (05:30→22:00)
[2019-05-06] MEDS: SOLU-Medrol 40 MG VIAL IVP SCH ×3 (05:30→22:33)
[2019-05-06] MEDS: NS 1/2 1000 ML IV 1,000 ML IV SCH ×5 (06:35→23:48)
[2019-05-06 06:56] LABS: BASOPHILS % (AUTO) 0.1 % (0.2-1.0); HEMATOCRIT 31.9 % (36.0-47.0); HEMOGLOBIN 10.1 g/dL (12.0-16.0); LYMPHOCYTES # (AUTO) 0.3 X10^3/uL (1.3-2.9); LYMPHOCYTES % (AUTO) 4.3 % (21.0-51.0); MEAN CORPUSCULAR HEMOGLOBIN 22.8 pg (27.0-34.0); MEAN CORPUSCULAR HGB CONC 31.6 g/dL (33.0-35.0); MEAN CORPUSCULAR VOLUME 72.3 fL (80.0-100.0); MEAN PLATELET VOLUME 7.2 fL (7.4-11.0); MONOCYTES # (AUTO) 0.2 x10^3/uL (0.3-0.8); MONOCYTES % (AUTO) 2.4 % (0.0-13.0); NEUTROPHILS # (AUTO) 6.1 x10^3/uL (2.2-4.8); NEUTROPHILS % (AUTO) 93.2 % (42.0-75.0); PLATELET COUNT 414 X10^3/uL (150.0-450.0); RED BLOOD COUNT 4.42 X10^6/uL (3.5-5.4); WHITE BLOOD COUNT 6.5 X10^3/uL (3.6-10.0)
[2019-05-06 07:20] LABS: ALANINE AMINOTRANSFERASE 27 Units/L (12-78); ALBUMIN 2.4 g/dL (3.4-5.0); ALKALINE PHOSPHATASE 85 Units/L (46-116); ASPARTATE AMINO TRANSFERASE 34 Units/L (15-37); BLOOD UREA NITROGEN 13 mg/dL (7-18); CALCIUM 7.8 mg/dL (8.5-10.1); CARBON DIOXIDE 30.1 mmol/L (21-32); CHLORIDE 95 mmol/L (98-107); COR CA(FOR HYPOALB) 9.1 mg/dL (8.5-10.1); COR NA(FOR HYPERGLY) 134 mmol/L (136-145); CREATININE 0.76 mg/dL (0.55-1.02); SODIUM 133 mmol/L (136-145); TOTAL PROTEIN 6.1 g/dL (6.4-8.2); eGFR NON BLACK RACES > 60 (>60)
[2019-05-06 07:34] LABS: HYPOCHROMASIA 1+; PLATELET MORPHOLOGY COMMENT NORMAL (NORMAL)
[2019-05-06 07:35] LABS: ANISOCYTOSIS 1+
[2019-05-06] MEDS ORDERED: NORVASC TAB 2.5 MG ONE (08:19)
[2019-05-06] MEDS: NORVASC TAB 2.5 MG PO SCH (09:32)
[2019-05-06] MEDS: PULMICORT NEB TX 0.5 MG NEB SCH ×2 (09:32→20:49)
[2019-05-06] MEDS: DUONEB 0.5 MG/3 MG NEB SCH ×4 (09:32→20:49)
[2019-05-06] MEDS: FOLIC ACID TAB 1 MG PO SCH (09:32)
[2019-05-06] MEDS: MICRO K EXTEN CAP 10 MEQ PO SCH ×2 (09:33→20:51)
[2019-05-06] MEDS: LOPRESSOR TAB 50 MG PO SCH ×2 (09:33→20:50)
[2019-05-06] MEDS: LASIX PO SCH ×2 (09:33→20:51)
[2019-05-06] MEDS: VSL#3 PO SCH (09:33)
[2019-05-06] MEDS: MOBIC TAB 15 MG PO SCH (09:33)
[2019-05-06] MEDS: LEVAQUIN PREMIX IV 750 MG 750 MG/150 ML BAG IV SCH (09:33)
[2019-05-06] MEDS: ROBITUSSIN DM PO SCH ×4 (09:34→20:51)
--- NOTE | 2019-05-06 12:41 | CT ---
History: Cough and shortness of breath Study: CT chest after intravenous infusion of 100 mL Omnipaque 350. Sagittal and coronal reformations were provided as well as axial soft tissue MIPS. Comparison: April 02, 2019 Findings: There is persistent bronchiectasis in the right middle lobe. There is a persistent streaky infiltrate in the right upper lobe posteriorly and laterally. There is a streaky infiltrate peripherally in the superior segment of the right lower lobe. There is no effusion. The heart is enlarged. There is no pericardial effusion. There is no obvious adenopathy. No pulmonary embolus is demonstrated. The visualized upper abdomen shows a cyst posteriorly from the superior right kidney. There are unchanged severe T11 and T12 compression fractures Impression: 1. Persistent bronchiectasis in the right middle lobe 2. Unchanged infiltrate posteriorly in the right upper lobe that therefore may represent fibrosis and scarring. 3. Peripheral pneumonitis suggested in the superior segment of the right lower lobe, slightly more prominent than prior exam. 4. New ground-glass peripheral opacity in the left upper lobe laterally that may represent a pneumonitis. Unchanged scarring in the lingula. 5. Unchanged lower thoracic compression fractures Reported By:
[2019-05-06] MEDS ORDERED: NS 1/2 1000 ML IV 1,000 ML IV ONE ×2 (12:43→23:12)
[2019-05-06] MEDS: LOVENOX INJ 30 MG SYR SC SCH (12:56)
[2019-05-06] MEDS: HumuLIN R SUBCUT PRN (12:57)
[2019-05-06] MEDS: SNACK - Diabetic Appropriate PO SCH ×2 (20:00)
[2019-05-06] MEDS: NEURONTIN CAP 300 MG PO SCH (20:51)
[2019-05-07] MEDS: SOLU-Medrol 40 MG VIAL IVP SCH ×3 (05:42→21:15)
[2019-05-07] MEDS: FORTAZ or TAZICEF VIAL INJ 1 G in NS 100 ML IV + SPIKE MINIBAG* 100 ML IV SCH ×3 (05:42→21:15)
[2019-05-07] MEDS: TESSALON PERLES PO SCH ×3 (06:15→21:14)
[2019-05-07 06:49] LABS: BASOPHILS % (AUTO) 0.1 % (0.2-1.0); HEMATOCRIT 29.3 % (36.0-47.0); HEMOGLOBIN 9.5 g/dL (12.0-16.0); LYMPHOCYTES # (AUTO) 0.5 X10^3/uL (1.3-2.9); LYMPHOCYTES % (AUTO) 4.3 % (21.0-51.0); MEAN CORPUSCULAR HEMOGLOBIN 23.3 pg (27.0-34.0); MEAN CORPUSCULAR HGB CONC 32.3 g/dL (33.0-35.0); MEAN CORPUSCULAR VOLUME 72.1 fL (80.0-100.0); MEAN PLATELET VOLUME 7.4 fL (7.4-11.0); MONOCYTES # (AUTO) 0.6 x10^3/uL (0.3-0.8); MONOCYTES % (AUTO) 5.8 % (0.0-13.0); NEUTROPHILS # (AUTO) 9.6 x10^3/uL (2.2-4.8); NEUTROPHILS % (AUTO) 89.8 % (42.0-75.0); PLATELET COUNT 443 X10^3/uL (150.0-450.0); RED BLOOD COUNT 4.07 X10^6/uL (3.5-5.4); RED CELL DISTRIBUTION WIDTH 22.1 % (11.6-16.5); WHITE BLOOD COUNT 10.7 X10^3/uL (3.6-10.0)
[2019-05-07 07:05] LABS: ALANINE AMINOTRANSFERASE 21 Units/L (12-78); ALBUMIN 2.3 g/dL (3.4-5.0); ALKALINE PHOSPHATASE 76 Units/L (46-116); ASPARTATE AMINO TRANSFERASE 22 Units/L (15-37); BLOOD UREA NITROGEN 8 mg/dL (7-18); CALCIUM 7.1 mg/dL (8.5-10.1); CARBON DIOXIDE 28.8 mmol/L (21-32); CHLORIDE 94 mmol/L (98-107); COR CA(FOR HYPOALB) 8.5 mg/dL (8.5-10.1); COR NA(FOR HYPERGLY) 133 mmol/L (136-145); SODIUM 132 mmol/L (136-145); TOTAL PROTEIN 5.7 g/dL (6.4-8.2); eGFR NON BLACK RACES > 60 (>60)
[2019-05-07 07:18] LABS: ANISOCYTOSIS 2+; HYPOCHROMASIA 1+; PLATELET MORPHOLOGY COMMENT NORMAL (NORMAL)
[2019-05-07 07:19] LABS: MICROCYTOSIS SLIGHT
[2019-05-07] MEDS: PULMICORT NEB TX 0.5 MG NEB SCH ×2 (09:12→20:10)
[2019-05-07] MEDS: DUONEB 0.5 MG/3 MG NEB SCH ×4 (09:12→20:09)
[2019-05-07] MEDS ORDERED: NORVASC TAB 2.5 MG ONE (09:28)
[2019-05-07] MEDS: LEVAQUIN PREMIX IV 750 MG 750 MG/150 ML BAG IV SCH (09:39)
[2019-05-07] MEDS: LOPRESSOR TAB 50 MG PO SCH ×2 (09:40→21:22)
[2019-05-07] MEDS: LOVENOX INJ 30 MG SYR SC SCH (09:40)
[2019-05-07] MEDS: VSL#3 PO SCH (09:40)
[2019-05-07] MEDS: ROBITUSSIN DM PO SCH ×4 (09:40→21:15)
[2019-05-07] MEDS: FOLIC ACID TAB 1 MG PO SCH (09:41)
[2019-05-07] MEDS: NORVASC TAB 2.5 MG PO SCH (09:41)
[2019-05-07] MEDS: K-DUR TAB 20 MEQ PO PRN (09:41)
[2019-05-07] MEDS: MOBIC TAB 15 MG PO SCH (09:42)
[2019-05-07] MEDS: MICRO K EXTEN CAP 10 MEQ PO SCH ×2 (09:42→21:15)
[2019-05-07] MEDS: LASIX PO SCH ×2 (09:48→21:14)
[2019-05-07] MEDS: NS 1/2 + KCL 20 MEQ/L 1,000 ML IV SCH (11:21)
[2019-05-07] MEDS: NEURONTIN CAP 300 MG PO SCH (21:15)
[2019-05-07] MEDS: SNACK - Diabetic Appropriate PO SCH (21:17)
[2019-05-08] MEDS: NS 1/2 + KCL 20 MEQ/L 1,000 ML IV SCH ×3 (01:57→19:26)
[2019-05-08] MEDS: TESSALON PERLES PO SCH ×3 (05:24→21:07)
[2019-05-08] MEDS: FORTAZ or TAZICEF VIAL INJ 1 G in NS 100 ML IV + SPIKE MINIBAG* 100 ML IV SCH ×3 (05:24→21:09)
[2019-05-08] MEDS: SOLU-Medrol 40 MG VIAL IVP SCH ×3 (05:24→21:09)
--- NOTE | 2019-05-08 06:09 | RAD ---
Examination: Portable AP chest History: SOB Comparison 05/05/2019 Findings: Continued cardiomegaly. The left lung remains grossly clear. The medial right lung is obscured by the the heart on this rotated radiograph. There is apparent interval increase in mediastinal width since prior studies. There is no evidence for tracheal deformity or deviation. No pneumothorax or large pleural effusion is evident. Impression: Persistent cardiomegaly. Incomplete evaluation of the right lung, see above. Apparent interval widening of mediastinum may be of technical origin. Other etiology is not excluded. Follow-up, standard PA and lateral views if possible, recommended. Reported By:
[2019-05-08 06:16] LABS: BASOPHILS % (AUTO) 0.1 % (0.2-1.0); HEMATOCRIT 29.1 % (36.0-47.0); HEMOGLOBIN 9.4 g/dL (12.0-16.0); LYMPHOCYTES # (AUTO) 0.5 X10^3/uL (1.3-2.9); MEAN CORPUSCULAR HEMOGLOBIN 23.2 pg (27.0-34.0); MEAN CORPUSCULAR HGB CONC 32.4 g/dL (33.0-35.0); MEAN CORPUSCULAR VOLUME 71.7 fL (80.0-100.0); MONOCYTES # (AUTO) 0.5 x10^3/uL (0.3-0.8); MONOCYTES % (AUTO) 5.7 % (0.0-13.0); NEUTROPHILS # (AUTO) 7.5 x10^3/uL (2.2-4.8); NEUTROPHILS % (AUTO) 88.2 % (42.0-75.0); PLATELET COUNT 451 X10^3/uL (150.0-450.0); RED BLOOD COUNT 4.06 X10^6/uL (3.5-5.4); RED CELL DISTRIBUTION WIDTH 22.4 % (11.6-16.5); WHITE BLOOD COUNT 8.5 X10^3/uL (3.6-10.0)
[2019-05-08 06:29] LABS: ALANINE AMINOTRANSFERASE 22 Units/L (12-78); ALBUMIN 2.2 g/dL (3.4-5.0); ALKALINE PHOSPHATASE 69 Units/L (46-116); ASPARTATE AMINO TRANSFERASE 19 Units/L (15-37); BLOOD UREA NITROGEN 9 mg/dL (7-18); CALCIUM 6.8 mg/dL (8.5-10.1); CARBON DIOXIDE 27.9 mmol/L (21-32); CHLORIDE 97 mmol/L (98-107); COR CA(FOR HYPOALB) 8.2 mg/dL (8.5-10.1); COR NA(FOR HYPERGLY) 133 mmol/L (136-145); CREATININE 0.59 mg/dL (0.55-1.02); SODIUM 132 mmol/L (136-145); TOTAL PROTEIN 5.5 g/dL (6.4-8.2); eGFR NON BLACK RACES > 60 (>60)
[2019-05-08 06:43] LABS: PLATELET MORPHOLOGY COMMENT NORMAL (NORMAL)
[2019-05-08 06:45] LABS: ANISOCYTOSIS 2+; HYPOCHROMASIA 1+
[2019-05-08] MEDS ORDERED: NORVASC TAB 2.5 MG ONE (09:23)
[2019-05-08] MEDS: LOVENOX INJ 30 MG SYR SC SCH (09:29)
[2019-05-08] MEDS: LEVAQUIN PREMIX IV 750 MG 750 MG/150 ML BAG IV SCH (09:29)
[2019-05-08] MEDS: LOPRESSOR TAB 50 MG PO SCH ×2 (09:30→21:07)
[2019-05-08] MEDS: VSL#3 PO SCH (09:30)
[2019-05-08] MEDS: MICRO K EXTEN CAP 10 MEQ PO SCH ×2 (09:30→21:08)
[2019-05-08] MEDS: NORVASC TAB 2.5 MG PO SCH (09:30)
[2019-05-08] MEDS: LASIX PO SCH ×2 (09:30→21:07)
[2019-05-08] MEDS: MOBIC TAB 15 MG PO SCH (09:30)
[2019-05-08] MEDS: FOLIC ACID TAB 1 MG PO SCH (09:31)
[2019-05-08] MEDS: ROBITUSSIN DM PO SCH ×4 (09:32→21:08)
[2019-05-08] MEDS: DUONEB 0.5 MG/3 MG NEB SCH ×4 (09:43→20:20)
[2019-05-08] MEDS: PULMICORT NEB TX 0.5 MG NEB SCH ×2 (09:43→20:20)
[2019-05-08] MEDS: HumuLIN R SUBCUT PRN (11:20)
[2019-05-08] MEDS: SNACK - Diabetic Appropriate PO SCH (20:00)
[2019-05-08] MEDS: NEURONTIN CAP 300 MG PO SCH (21:07)
--- NOTE | 2019-05-08 21:42 | PCM.PROG ---
Progress Note - Progress Note for Day of Date of Exam: 05/06/19 - Subjective Subjective: WAS ADMITTED FOR TREATMENT OF PNEUMONIA. TODAY, SHE IS ALERT AND ORIENTED, LYING IN BED ON MORNING ROUNDS. SHE REPORTS INCREASED SHORTENSS OF BREATH TODAY. SHE CONTINUES WITH A PRODUCTIVE COUGH. ON EXAMINATION, HEART IS REGULAR IN RATE AND RHYTHM. BILATERAL LUNGS ARE NOTED WITH SCATTERED WHEEZING AND RHONCHI THROUGHOUT. ABDOMEN IS ROUND, SOFT, AND NON- TENDER WITH NORMAL BOWEL SOUNDS IN ALL QUADRANTS. HER VITALS THIS MORNING ARE: 98.6-53-20-98%-94/53. LABS WERE OBTAINED. ABNORMAL LAB VALUES INCLUDE THE FOLLOWING: HGB 10.1, HCT 31.9, D-DIMER 1060, SODIUM 133, CHLORIDE 95, GLUCOSE 137, CALCIUM 7.8, BNP 114, TOTAL PROTEIN 6.1, ALBUMIN 2.4. BLOOD AND SPUTUM CULTURES ARE PENDING. A CHEST XRAY WAS OBTAINED THIS MORNING AND REVEALED: Persistent bronchiectasis in the right middle lobe. Unchanged infiltrate posteriorly in the right upper lobe that therefore may represent fibrosis and scarring. Peripheral pneumonitis suggested in the superior segment of the right lower lobe, slightly more prominent than prior exam. New ground-glass peripheral opacity in the left upper lobe laterally that may represent a pneumonitis. Unchanged scarring in the lingula. Unchanged lower thoracic compression fractures. SHE IS CURRENTLY RECEIVING IV LEVAQUIN, IV FORTAZ, SOLU-MEDROL, RESPIRATORY TX, AND SUPPLEMENTAL OXYGEN. WE WILL CONTINUE WITH CURRENT PLAN OF CARE TODAY. OTHERWISE, WE WILL FOLLOW UP WITH AM LABS AND CHEST XRAY AND CONTINUE TO MONITOR. - Past Medical Family Social History Past Med/Fam/Surg Hx: No changes since H&P Allergies: Allergies No Known Drug Allergies Allergy (Verified 05/05/19 14:14) - Review of Systems ROS: No change since H&P - Vital Signs and I&O's Vital Signs: Temperature 99.6 F Pulse Rate [Right Brachial] 85 Pulse Rate [Left Brachial] 76 Pulse Rate 86 Respiratory Rate 20 Blood Pressure [Right Arm] 126/61 Blood Pressure [Left Arm] 120/79 Blood Pressure 144/69 O2 Sat by Pulse Oximetry 96 Intake and Output: Intake & Output 05/06/19 05/07/19 05/08/19 05/09/19 11:59 11:59 11:59 11:59 Intake Total 1305 / 1305 2455 / 2455 1360 / 1360 480 / 480 Balance 1305 / 1305 2455 / 2455 1360 / 1360 480 / 480 - Physical Exam Oriented: Normal Eyes: Normal Ear: Normal Nose: Normal Throat: Normal Respiratory: Wheezes, Rhonchi Cardiovascular: Normal : Normal Auscultation: Bowel Sounds: Normal Palpation: Normal Skin: Normal Musculoskeletal: Normal Psychiatric: Normal Mood Description: Calm Affect: Normal Speech Pattern: Clear, Appropriate - Laboratory and Diagnostics Result Diagrams: 05/08/19 05:50 05/08/19 05:50 Labs: 05/05/19 20:30 Stool Stool Culture - Final 05/05/19 20:30 Stool - Final 05/05/19 15:54 Blood Blood Culture - Preliminary 05/05/19 15:45 Blood Blood Culture - Preliminary 05/05/19 14:30 Sputum - Expectorated Sputum Sputum Culture - Preliminary 05/05/19 14:30 Sputum - Expectorated Sputum - Final Laboratory WBC 8.5 X10^3/uL (3.6-10.0) 05/08/19 05:50 RBC 4.06 X10^6/uL (3.5-5.4) 05/08/19 05:50 Hgb 9.4 g/dL (12.0-16.0) L 05/08/19 05:50 Hct 29.1 % (36.0-47.0) L 05/08/19 05:50 MCV 71.7 fL (80.0-100.0) L 05/08/19 05:50 MCH 23.2 pg (27.0-34.0) L 05/08/19 05:50 MCHC 32.4 g/dL (33.0-35.0) L 05/08/19 05:50 RDW 22.4 % (11.6-16.5) H 05/08/19 05:50 Plt Count 451 X10^3/uL (150.0-450.0) H 05/08/19 05:50 Plt Count Comment Adequate (ADEQUATE) 05/08/19 05:50 MPV 7.0 fL (7.4-11.0) L 05/08/19 05:50 Neut % (Auto) 88.2 % (42.0-75.0) H 05/08/19 05:50 Lymph % (Auto) 6.0 % (21.0-51.0) L 05/08/19 05:50 [place] % (Auto) 5.7 % (0.0-13.0) 05/08/19 05:50 Eos % (Auto) 0.0 % (0.9-2.9) L 05/08/19 05:50 Baso % (Auto) 0.1 % (0.2-1.0) L 05/08/19 05:50 Neut # (Auto) 7.5 x10^3/uL (2.2-4.8) H 05/08/19 05:50 Lymph # (Auto) 0.5 X10^3/uL (1.3-2.9) L 05/08/19 05:50 [place] # (Auto) 0.5 x10^3/uL (0.3-0.8) 05/08/19 05:50 Eos # (Auto) 0.0 x10^3/uL (0.0-0.2) 05/08/19 05:50 Baso # (Auto) 0.0 X10^3/uL (0.0-0.1) 05/08/19 05:50 Absolute Nucleated RBC 0.0 /100WBC 05/08/19 05:50 Total Counted 100 05/06/19 06:00 Neutrophils % (Manual) 88 % (39-76) H 05/06/19 06:00 Lymphocytes % (Manual) 10 % (13-43) L 05/06/19 06:00 Monocytes % (Manual) 2 % (4-9) L 05/06/19 06:00 Plt Morphology Comment Normal (NORMAL) 05/08/19 05:50 RBC Morphology Abnormal (NORMAL) A 05/08/19 05:50 Hypochromasia 1+ A 05/08/19 05:50 Anisocytosis 2+ A 05/08/19 05:50 Microcytosis Slight A 05/07/19 06:20 Macrocytosis Slight A 05/05/19 15:54 D-Dimer 1060 ng/mL (0-400) H* 05/06/19 06:00 Sodium 132 mmol/L (136-145) L 05/08/19 05:50 Corrected Sodium 133 mmol/L (136-145) L 05/08/19 05:50 Potassium 3.7 mmol/L (3.5-5.1) 05/08/19 05:50 Chloride 97 mmol/L (98-107) L 05/08/19 05:50 Carbon Dioxide 27.9 mmol/L (21-32) 05/08/19 05:50 BUN 9 mg/dL (7-18) 05/08/19 05:50 Creatinine 0.59 mg/dL (0.55-1.02) 05/08/19 05:50 Est GFR (MDRD) Af Amer > 60 (>60) 05/08/19 05:50 Est GFR (MDRD) Non-Af > 60 (>60) 05/08/19 05:50 Glucose 145 mg/dL (65-99) H 05/08/19 05:50 POC Glucose (mg/dL) 144 mg/dL (65-99) H 05/08/19 19:17 Calcium 6.8 mg/dL (8.5-10.1) L 05/08/19 05:50 Corrected Calcium 8.2 mg/dL (8.5-10.1) L 05/08/19 05:50 Magnesium 1.8 mg/dL (1.7-2.9) 05/07/19 06:20 Total Bilirubin 0.40 mg/dL (0.2-1.0) 05/08/19 05:50 AST 19 Units/L (15-37) 05/08/19 05:50 ALT 22 Units/L (12-78) 05/08/19 05:50 Alkaline Phosphatase 69 Units/L (46-116) 05/08/19 05:50 B-Natriuretic Peptide 289 pg/mL (0-79) H 05/08/19 05:50 Total Protein 5.5 g/dL (6.4-8.2) L 05/08/19 05:50 Albumin 2.2 g/dL (3.4-5.0) L 05/08/19 05:50 Globulin 3.3 g/dL (2.5-4.5) 05/08/19 05:50 Albumin/Globulin Ratio 0.7 Ratio (1.1-2.1) L 05/08/19 05:50 Stool Description 10g. liquid/brown 05/05/19 20:30 Stool Description 10g. liquid/brown 05/05/19 20:30 Stl Occult Blood (IFOB) Negative (NEGATIVE) 05/05/19 20:30 Stool for White Cells Negative (NEGATIVE) 05/05/19 20:30 Stl C. diff Tox B Gene Negative (NEGATIVE) 05/05/19 20:30 Stl C. diff [id number] Negative (NEGATIVE) 05/05/19 20:30 Cryptosporid parvum Ag Negative (NEGATIVE) 05/05/19 20:30 Giardia lamblia Ag Negative (NEGATIVE) 05/05/19 20:30 - Plan (1) Pneumonia Status: Acute Qualifiers: Pneumonia type: due to unspecified organism Laterality: bilateral Lung location: unspecified part of lung Qualified Code(s): J18.9 - Pneumonia, unspecified organism Plan: IV FORTAZ, IV LEVAQUIN, SOLU-MEDROL, RESPIRATORY TX, OBTAIN CHEST CT, CONTINUE TO MONITOR
[2019-05-09] MEDS: TESSALON PERLES PO SCH ×3 (05:01→21:04)
[2019-05-09] MEDS: NS 1/2 + KCL 20 MEQ/L 1,000 ML IV SCH (05:01)
[2019-05-09 05:02] LABS: BASOPHILS % (AUTO) 0.1 % (0.2-1.0); HEMOGLOBIN 9.4 g/dL (12.0-16.0); LYMPHOCYTES # (AUTO) 0.5 X10^3/uL (1.3-2.9); MEAN CORPUSCULAR HEMOGLOBIN 23.2 pg (27.0-34.0); MEAN CORPUSCULAR HGB CONC 32.3 g/dL (33.0-35.0); MEAN CORPUSCULAR VOLUME 71.9 fL (80.0-100.0); MEAN PLATELET VOLUME 7.3 fL (7.4-11.0); MONOCYTES # (AUTO) 0.6 x10^3/uL (0.3-0.8); NEUTROPHILS # (AUTO) 6.3 x10^3/uL (2.2-4.8); NEUTROPHILS % (AUTO) 84.9 % (42.0-75.0); PLATELET COUNT 421 X10^3/uL (150.0-450.0); RED BLOOD COUNT 4.03 X10^6/uL (3.5-5.4); RED CELL DISTRIBUTION WIDTH 21.8 % (11.6-16.5); WHITE BLOOD COUNT 7.4 X10^3/uL (3.6-10.0)
[2019-05-09] MEDS: FORTAZ or TAZICEF VIAL INJ 1 G in NS 100 ML IV + SPIKE MINIBAG* 100 ML IV SCH ×3 (05:02→21:04)
[2019-05-09 05:19] LABS: ALANINE AMINOTRANSFERASE 21 Units/L (12-78); ALBUMIN 2.3 g/dL (3.4-5.0); ALKALINE PHOSPHATASE 64 Units/L (46-116); ASPARTATE AMINO TRANSFERASE 18 Units/L (15-37); BLOOD UREA NITROGEN 8 mg/dL (7-18); CALCIUM 6.6 mg/dL (8.5-10.1); CARBON DIOXIDE 26.8 mmol/L (21-32); CHLORIDE 97 mmol/L (98-107); COR NA(FOR HYPERGLY) 135 mmol/L (136-145); CREATININE 0.54 mg/dL (0.55-1.02); SODIUM 133 mmol/L (136-145); TOTAL PROTEIN 5.4 g/dL (6.4-8.2); eGFR NON BLACK RACES > 60 (>60)
[2019-05-09 05:38] LABS: ANISOCYTOSIS 1+; HYPOCHROMASIA SLIGHT; PLATELET MORPHOLOGY COMMENT NORMAL (NORMAL)
--- NOTE | 2019-05-09 05:49 | RAD ---
Examination: AP chest History: SOB Comparison 05/08/2019 Findings: Continued cardiomegaly. There is persistent widening of the upper mediastinum although this finding is less prominent than on the prior exam. Diffuse infiltrates are again noted in the right lung, documented on recent chest CT study. There is no new consolidation, pneumothorax or pleural fluid. Impression: Stable cardiomegaly and persistent infiltrates in the right lung. Considering technical differences there is little change since prior exam. Reported By:
[2019-05-09] MEDS: K-DUR TAB 20 MEQ PO PRN (06:24)
[2019-05-09] MEDS: PULMICORT NEB TX 0.5 MG NEB SCH ×2 (09:03→20:16)
[2019-05-09] MEDS: DUONEB 0.5 MG/3 MG NEB SCH ×4 (09:03→20:16)
[2019-05-09] MEDS ORDERED: NORVASC TAB 2.5 MG ONE (09:04)
[2019-05-09] MEDS: LOVENOX INJ 30 MG SYR SC SCH (09:47)
[2019-05-09] MEDS: LOPRESSOR TAB 50 MG PO SCH ×2 (09:48→20:40)
[2019-05-09] MEDS: FOLIC ACID TAB 1 MG PO SCH (09:48)
[2019-05-09] MEDS: MAGNESIUM SULFATE 1 GRAM/100 mL PREMIX 1 GM/100 ML BAG IV PRN ×2 (09:48→13:19)
[2019-05-09] MEDS: MICRO K EXTEN CAP 10 MEQ PO SCH ×2 (09:48→20:41)
[2019-05-09] MEDS: ROBITUSSIN DM PO SCH ×4 (09:48→20:42)
[2019-05-09] MEDS: LASIX PO SCH ×2 (09:49→20:40)
[2019-05-09] MEDS: MOBIC TAB 15 MG PO SCH (09:49)
[2019-05-09] MEDS: NORVASC TAB 2.5 MG PO SCH (09:49)
[2019-05-09] MEDS: NS + KCL 40 MEQ/L 1,000 ML IV SCH (11:23)
[2019-05-09] MEDS: LEVAQUIN PREMIX IV 750 MG 750 MG/150 ML BAG IV SCH (11:23)
[2019-05-09] MEDS: VSL#3 PO SCH (11:24)
[2019-05-09] MEDS: SNACK - Diabetic Appropriate PO SCH (20:40)
[2019-05-09] MEDS: NEURONTIN CAP 300 MG PO SCH (20:41)
[2019-05-10] MEDS: NS + KCL 40 MEQ/L 1,000 ML IV SCH ×2 (03:13→14:36)
[2019-05-10] MEDS: FORTAZ or TAZICEF VIAL INJ 1 G in NS 100 ML IV + SPIKE MINIBAG* 100 ML IV SCH ×3 (05:01→21:13)
[2019-05-10] MEDS: TESSALON PERLES PO SCH ×3 (05:01→21:13)
[2019-05-10 05:21] LABS: BASOPHILS % (AUTO) 0.1 % (0.2-1.0); EOSINOPHILS % (AUTO) 0.3 % (0.9-2.9); HEMATOCRIT 30.2 % (36.0-47.0); HEMOGLOBIN 9.6 g/dL (12.0-16.0); LYMPHOCYTES # (AUTO) 1.4 X10^3/uL (1.3-2.9); LYMPHOCYTES % (AUTO) 17.4 % (21.0-51.0); MEAN CORPUSCULAR HEMOGLOBIN 23.1 pg (27.0-34.0); MEAN CORPUSCULAR HGB CONC 31.9 g/dL (33.0-35.0); MEAN CORPUSCULAR VOLUME 72.4 fL (80.0-100.0); MEAN PLATELET VOLUME 7.4 fL (7.4-11.0); MONOCYTES # (AUTO) 1.4 x10^3/uL (0.3-0.8); MONOCYTES % (AUTO) 16.7 % (0.0-13.0); NEUTROPHILS # (AUTO) 5.3 x10^3/uL (2.2-4.8); NEUTROPHILS % (AUTO) 65.5 % (42.0-75.0); PLATELET COUNT 427 X10^3/uL (150.0-450.0); RED BLOOD COUNT 4.18 X10^6/uL (3.5-5.4); RED CELL DISTRIBUTION WIDTH 22.4 % (11.6-16.5); WHITE BLOOD COUNT 8.1 X10^3/uL (3.6-10.0)
[2019-05-10 05:40] LABS: ALANINE AMINOTRANSFERASE 24 Units/L (12-78); ALBUMIN 2.3 g/dL (3.4-5.0); ALKALINE PHOSPHATASE 59 Units/L (46-116); ASPARTATE AMINO TRANSFERASE 20 Units/L (15-37); BLOOD UREA NITROGEN 6 mg/dL (7-18); CALCIUM 6.8 mg/dL (8.5-10.1); CARBON DIOXIDE 26.5 mmol/L (21-32); CHLORIDE 102 mmol/L (98-107); COR CA(FOR HYPOALB) 8.2 mg/dL (8.5-10.1); CREATININE 0.53 mg/dL (0.55-1.02); SODIUM 136 mmol/L (136-145); TOTAL PROTEIN 5.4 g/dL (6.4-8.2); eGFR NON BLACK RACES > 60 (>60)
--- NOTE | 2019-05-10 06:37 | RAD ---
HISTORY: Shortness of breath Study: Chest AP portable Comparison: 05/09/2019 Findings: The heart remains enlarged. No congestive heart failure is noted. Perihilar infiltrates on the right are unchanged. The left lung is clear. Hyperinflation is present. No pleural effusions are identified. The bony thorax is unremarkable. IMPRESSION: No significant change from the prior examination Reported By:
[2019-05-10] MEDS: DUONEB 0.5 MG/3 MG NEB SCH ×3 (09:16→17:26)
[2019-05-10] MEDS: PULMICORT NEB TX 0.5 MG NEB SCH (09:16)
[2019-05-10] MEDS ORDERED: NORVASC TAB 2.5 MG ONE (10:08)
[2019-05-10] MEDS: FOLIC ACID TAB 1 MG PO SCH (10:14)
[2019-05-10] MEDS: LASIX PO SCH ×2 (10:14→20:30)
[2019-05-10] MEDS: LEVAQUIN PREMIX IV 750 MG 750 MG/150 ML BAG IV SCH (10:15)
[2019-05-10] MEDS: LOPRESSOR TAB 50 MG PO SCH ×2 (10:15→20:30)
[2019-05-10] MEDS: LOVENOX INJ 30 MG SYR SC SCH (10:15)
[2019-05-10] MEDS: NORVASC TAB 2.5 MG PO SCH (10:16)
[2019-05-10] MEDS: MOBIC TAB 15 MG PO SCH (10:16)
[2019-05-10] MEDS: MICRO K EXTEN CAP 10 MEQ PO SCH ×2 (10:16→20:31)
[2019-05-10] MEDS: VSL#3 PO SCH (10:17)
[2019-05-10] MEDS: ROBITUSSIN DM PO SCH ×4 (10:17→20:31)
[2019-05-10] MEDS: SNACK - Diabetic Appropriate PO SCH (20:30)
[2019-05-10] MEDS: NEURONTIN CAP 300 MG PO SCH (20:30)
--- NOTE | 2019-05-10 21:28 | PCM.PROG ---
Progress Note - Progress Note for Day of Date of Exam: 05/08/19 - Subjective Subjective: WAS ADMITTED FOR TREATMENT OF PNEUMONIA. TODAY, SHE IS ALERT AND ORIENTED, LYING IN BED ON MORNING ROUNDS. SHE REPORTS PERSISTENT SHORTENSS OF BREATH AND COUGH TODAY. ON EXAMINATION, HEART IS REGULAR IN RATE AND RHYTHM. BILATERAL LUNGS ARE NOTED WITH SCATTERED WHEEZING AND RHONCHI T HROUGHOUT. ABDOMEN IS ROUND, SOFT, AND NON-TENDER WITH NORMAL BOWEL SOUNDS IN ALL QUADRANTS. HER VITALS THIS MORNING ARE: 98.7-86-20-98%-126/73. LABS WERE OBTAINED. ABNORMAL LAB VALUES INCLUDE THE FOLLOWING: HGB 9.4, HCT 29.1, PLT COUNT 451, SODIUM 132, CHLORIDE 97, GLUCOSE 145, CALCIUM 6.8, BNP 289, TOTAL PROTEIN 5.5, ALBUMIN 2.2. BLOOD AND SPUTUM CULTURES ARE PENDING. A CHEST XRAY WAS OBTAINED THIS MORNING AND REVEALED: Persistent cardiomegaly. Incomplete evaluation of the right lung. Apparent interval widening of mediastinum may be of technical origin. SHE IS CURRENTLY RECEIVING IV LEVAQUIN, IV FORTAZ, SOLU- MEDROL, RESPIRATORY TX, AND SUPPLEMENTAL OXYGEN. WE WILL CONTINUE WITH CURRENT PLAN OF CARE TODAY. OTHERWISE, WE WILL FOLLOW UP WITH AM LABS AND CHEST XRAY AND CONTINUE TO MONITOR. - Past Medical Family Social History Past Med/Fam/Surg Hx: No changes since H&P Allergies: Allergies No Known Drug Allergies Allergy (Verified 05/05/19 14:14) - Review of Systems ROS: No change since H&P - Vital Signs and I&O's Vital Signs: Temperature 98.4 F Pulse Rate [Right Brachial] 87 Pulse Rate [Left Brachial] 95 Pulse Rate 72 Respiratory Rate 20 Blood Pressure [Right Arm] 124/73 Blood Pressure [Left Arm] 120/79 Blood Pressure 144/69 O2 Sat by Pulse Oximetry 99 Intake and Output: Intake & Output 05/08/19 05/09/19 05/10/19 05/11/19 11:59 11:59 11:59 11:59 Intake Total 1360 / 1360 1730 / 1730 3498 / 3498 960 / 960 Balance 1360 / 1360 1730 / 1730 3498 / 3498 960 / 960 - Physical Exam Oriented: Normal Eyes: Normal Ear: Normal Nose: Normal Throat: Normal Respiratory: Wheezes, Rhonchi Cardiovascular: Normal : Normal Auscultation: Bowel Sounds: Normal Skin: Normal Musculoskeletal: Normal Psychiatric: Normal Mood Description: Calm Affect: Normal Speech Pattern: Clear, Appropriate - Laboratory and Diagnostics Result Diagrams: 05/10/19 04:38 05/10/19 04:38 Labs: 05/05/19 15:54 Blood Blood Culture - Final 05/05/19 15:45 Blood Blood Culture - Final 05/05/19 14:30 Sputum - Expectorated Sputum Sputum Culture - Final Pseudomonas Aeruginosa 05/05/19 14:30 Sputum - Expectorated Sputum - Final 05/05/19 20:30 Stool Stool Culture - Final 05/05/19 20:30 Stool - Final Laboratory WBC 8.1 X10^3/uL (3.6-10.0) 05/10/19 04:38 RBC 4.18 X10^6/uL (3.5-5.4) 05/10/19 04:38 Hgb 9.6 g/dL (12.0-16.0) L 05/10/19 04:38 Hct 30.2 % (36.0-47.0) L 05/10/19 04:38 MCV 72.4 fL (80.0-100.0) L 05/10/19 04:38 MCH 23.1 pg (27.0-34.0) L 05/10/19 04:38 MCHC 31.9 g/dL (33.0-35.0) L 05/10/19 04:38 RDW 22.4 % (11.6-16.5) H 05/10/19 04:38 Plt Count 427 X10^3/uL (150.0-450.0) 05/10/19 04:38 Plt Count Comment Adequate (ADEQUATE) 05/09/19 04:36 MPV 7.4 fL (7.4-11.0) 05/10/19 04:38 Neut % (Auto) 65.5 % (42.0-75.0) 05/10/19 04:38 Lymph % (Auto) 17.4 % (21.0-51.0) L 05/10/19 04:38 [place] % (Auto) 16.7 % (0.0-13.0) H 05/10/19 04:38 Eos % (Auto) 0.3 % (0.9-2.9) L 05/10/19 04:38 Baso % (Auto) 0.1 % (0.2-1.0) L 05/10/19 04:38 Neut # (Auto) 5.3 x10^3/uL (2.2-4.8) H 05/10/19 04:38 Lymph # (Auto) 1.4 X10^3/uL (1.3-2.9) 05/10/19 04:38 [place] # (Auto) 1.4 x10^3/uL (0.3-0.8) H 05/10/19 04:38 Eos # (Auto) 0.0 x10^3/uL (0.0-0.2) 05/10/19 04:38 Baso # (Auto) 0.0 X10^3/uL (0.0-0.1) 05/10/19 04:38 Absolute Nucleated RBC 0.1 /100WBC 05/10/19 04:38 Total Counted 100 05/09/19 04:36 Neutrophils % (Manual) 86 % (39-76) H 05/09/19 04:36 Lymphocytes % (Manual) 8 % (13-43) L 05/09/19 04:36 Monocytes % (Manual) 6 % (4-9) 05/09/19 04:36 Plt Morphology Comment Normal (NORMAL) 05/09/19 04:36 RBC Morphology Abnormal (NORMAL) A 05/09/19 04:36 Hypochromasia Slight A 05/09/19 04:36 Anisocytosis 1+ A 05/09/19 04:36 Microcytosis Slight A 05/07/19 06:20 Macrocytosis 1+ A 05/09/19 04:36 D-Dimer 1060 ng/mL (0-400) H* 05/06/19 06:00 Sodium 136 mmol/L (136-145) 05/10/19 04:38 Corrected Sodium TNP 05/10/19 04:38 Potassium 3.6 mmol/L (3.5-5.1) 05/10/19 04:38 Chloride 102 mmol/L (98-107) 05/10/19 04:38 Carbon Dioxide 26.5 mmol/L (21-32) 05/10/19 04:38 BUN 6 mg/dL (7-18) L 05/10/19 04:38 Creatinine 0.53 mg/dL (0.55-1.02) L 05/10/19 04:38 Est GFR (MDRD) Af Amer > 60 (>60) 05/10/19 04:38 Est GFR (MDRD) Non-Af > 60 (>60) 05/10/19 04:38 Glucose 86 mg/dL (65-99) 05/10/19 04:38 POC Glucose (mg/dL) 99 mg/dL (65-99) 05/10/19 19:32 Calcium 6.8 mg/dL (8.5-10.1) L 05/10/19 04:38 Corrected Calcium 8.2 mg/dL (8.5-10.1) L 05/10/19 04:38 Magnesium 2.0 mg/dL (1.7-2.9) 05/10/19 04:38 Total Bilirubin 0.30 mg/dL (0.2-1.0) 05/10/19 04:38 AST 20 Units/L (15-37) 05/10/19 04:38 ALT 24 Units/L (12-78) 05/10/19 04:38 Alkaline Phosphatase 59 Units/L (46-116) 05/10/19 04:38 B-Natriuretic Peptide 289 pg/mL (0-79) H 05/08/19 05:50 Total Protein 5.4 g/dL (6.4-8.2) L 05/10/19 04:38 Albumin 2.3 g/dL (3.4-5.0) L 05/10/19 04:38 Globulin 3.1 g/dL (2.5-4.5) 05/10/19 04:38 Albumin/Globulin Ratio 0.7 Ratio (1.1-2.1) L 05/10/19 04:38 Stool Description 10g. liquid/brown 05/05/19 20:30 Stool Description 10g. liquid/brown 05/05/19 20:30 Stl Occult Blood (IFOB) Negative (NEGATIVE) 05/05/19 20:30 Stool for White Cells Negative (NEGATIVE) 05/05/19 20:30 Stl C. diff Tox B Gene Negative (NEGATIVE) 05/05/19 20:30 Stl C. diff [id number] Negative (NEGATIVE) 05/05/19 20:30 Cryptosporid parvum Ag Negative (NEGATIVE) 05/05/19 20:30 Giardia lamblia Ag Negative (NEGATIVE) 05/05/19 20:30 - Plan (1) Pneumonia Status: Acute Qualifiers: Pneumonia type: due to unspecified organism Laterality: bilateral Lung location: unspecified part of lung Qualified Code(s): J18.9 - Pneumonia, unspecified organism Plan: IV FORTAZ, IV LEVAQUIN, SOLU-MEDROL, RESPIRATORY TX, OBTAIN CHEST CT, CONTINUE TO MONITOR
[2019-05-11 05:08] LABS: BASOPHILS % (AUTO) 0.3 % (0.2-1.0); EOSINOPHILS # (AUTO) 0.3 x10^3/uL (0.0-0.2); EOSINOPHILS % (AUTO) 3.6 % (0.9-2.9); HEMATOCRIT 31.2 % (36.0-47.0); HEMOGLOBIN 9.9 g/dL (12.0-16.0); LYMPHOCYTES # (AUTO) 1.2 X10^3/uL (1.3-2.9); LYMPHOCYTES % (AUTO) 16.6 % (21.0-51.0); MEAN CORPUSCULAR HEMOGLOBIN 23.1 pg (27.0-34.0); MEAN CORPUSCULAR HGB CONC 31.8 g/dL (33.0-35.0); MEAN CORPUSCULAR VOLUME 72.7 fL (80.0-100.0); MEAN PLATELET VOLUME 7.5 fL (7.4-11.0); MONOCYTES # (AUTO) 1.2 x10^3/uL (0.3-0.8); MONOCYTES % (AUTO) 15.6 % (0.0-13.0); NEUTROPHILS # (AUTO) 4.8 x10^3/uL (2.2-4.8); NEUTROPHILS % (AUTO) 63.9 % (42.0-75.0); PLATELET COUNT 409 X10^3/uL (150.0-450.0); RED BLOOD COUNT 4.29 X10^6/uL (3.5-5.4); RED CELL DISTRIBUTION WIDTH 22.1 % (11.6-16.5); WHITE BLOOD COUNT 7.5 X10^3/uL (3.6-10.0)
[2019-05-11 05:19] LABS: ALANINE AMINOTRANSFERASE 24 Units/L (12-78); ALBUMIN 2.3 g/dL (3.4-5.0); ALKALINE PHOSPHATASE 58 Units/L (46-116); ASPARTATE AMINO TRANSFERASE 18 Units/L (15-37); BLOOD UREA NITROGEN 7 mg/dL (7-18); CALCIUM 6.6 mg/dL (8.5-10.1); CARBON DIOXIDE 28.1 mmol/L (21-32); CHLORIDE 103 mmol/L (98-107); CREATININE 0.55 mg/dL (0.55-1.02); SODIUM 138 mmol/L (136-145); TOTAL PROTEIN 5.3 g/dL (6.4-8.2); eGFR NON BLACK RACES > 60 (>60)
[2019-05-11] MEDS: FORTAZ or TAZICEF VIAL INJ 1 G in NS 100 ML IV + SPIKE MINIBAG* 100 ML IV SCH ×2 (05:21→13:53)
[2019-05-11] MEDS: TESSALON PERLES PO SCH ×2 (05:21→13:53)
--- NOTE | 2019-05-11 07:47 | RAD ---
Chest, 1 view Indication: Pneumonia Comparison: 05/10/2019 Findings: Cardiomegaly and increased interstitial markings are similar to prior. There is worsened right basilar infiltrate. No left lung infiltrates. No large effusion or pneumothorax. Impression: Worsening right basilar infiltrate. Stable cardiomegaly. Reported By:
[2019-05-11] MEDS: DUONEB 0.5 MG/3 MG NEB SCH ×2 (08:36→12:25)
[2019-05-11] MEDS: PULMICORT NEB TX 0.5 MG NEB SCH (08:36)
[2019-05-11] MEDS ORDERED: NORVASC TAB 2.5 MG ONE (08:41)
[2019-05-11] MEDS: LASIX PO SCH (09:17)
[2019-05-11] MEDS: ROBITUSSIN DM PO SCH ×2 (09:17→13:52)
[2019-05-11] MEDS: VSL#3 PO SCH (09:17)
[2019-05-11] MEDS: LEVAQUIN PREMIX IV 750 MG 750 MG/150 ML BAG IV SCH (09:17)
[2019-05-11] MEDS: LOPRESSOR TAB 50 MG PO SCH (09:18)
[2019-05-11] MEDS: LOVENOX INJ 30 MG SYR SC SCH (09:18)
[2019-05-11] MEDS: FOLIC ACID TAB 1 MG PO SCH (09:18)
[2019-05-11] MEDS: MICRO K EXTEN CAP 10 MEQ PO SCH (09:18)
[2019-05-11] MEDS: NORVASC TAB 2.5 MG PO SCH (09:19)
[2019-05-11] MEDS: MOBIC TAB 15 MG PO SCH (09:19)
[2019-05-11] MEDS: NS + KCL 40 MEQ/L 1,000 ML IV SCH ×2 (13:06→15:14)
[2019-05-11 14:27] VITALS: BP 129/73
--- NOTE | 2019-06-21 10:22 | PCM.PROG ---
Progress Note - Progress Note for Day of Date of Exam: 05/09/19 - Subjective Subjective: WAS ADMITTED FOR TREATMENT OF PNEUMONIA. TODAY, SHE IS ALERT AND ORIENTED, LYING IN BED ON MORNING ROUNDS. SHE REPORTS PERSISTENT SHORTENSS OF BREATH AND COUGH TODAY. ON EXAMINATION, HEART IS REGULAR IN RATE AND RHYTHM. BILATERAL LUNGS ARE NOTED WITH SCATTERED WHEEZING AND RHONCHI T HROUGHOUT. ABDOMEN IS ROUND, SOFT, AND NON-TENDER WITH NORMAL BOWEL SOUNDS IN ALL QUADRANTS. HER VITALS THIS MORNING ARE: 98.5-90-24-96%NC-145/82. LABS WERE OBTAINED. ABNORMAL LAB VALUES INCLUDE THE FOLLOWING: HGB 9.4, HCT 29.0, SODIUM 133, POTASSIUM 3.2, CHLORIDE 97, CREATININE 0.54, GLUCOSE 165, CALCIUM 6.6, MAGNESIUM 1.6, TOTAL PROTEIN 5.4, ALBUMIN 2.3. SPUTUM CULTURE IS POSITIVE FOR GROWTH OF PSEUDOMONAS AERUGINOSA. A CHEST XRAY WAS OBTAINED THIS MORNING AND REVEALED: Stable cardiomegaly and persistent infiltrates in the right lung. Considering technical differences there is little change since prior exam. SHE IS CURRENTLY RECEIVING IV LEVAQUIN, IV FORTAZ, SOLU-MEDROL, RESPIRATORY TX, AND SUPPLEMENTAL OXYGEN. WE WILL CONTINUE WITH CURRENT PLAN OF CARE TODAY. OTHERWISE, WE WILL FOLLOW UP WITH AM LABS AND CHEST XRAY AND CONTINUE TO MONITOR. - Past Medical Family Social History Past Med/Fam/Surg Hx: No changes since H&P Allergies: Allergies No Known Drug Allergies Allergy (Verified 05/05/19 14:14) - Review of Systems ROS: No change since H&P - Vital Signs and I&O's Vital Signs: Temperature 97.6 F Pulse Rate [Right Brachial] 91 Pulse Rate [Left Brachial] 95 Pulse Rate 79 Respiratory Rate 20 Blood Pressure [Right Arm] 129/73 Blood Pressure [Left Arm] 120/79 Blood Pressure 144/69 O2 Sat by Pulse Oximetry 97 - Physical Exam Oriented: Normal Eyes: Normal Ear: Normal Nose: Normal Throat: Normal Respiratory: Wheezes, Rhonchi Cardiovascular: Normal : Normal Auscultation: Bowel Sounds: Normal Skin: Normal Musculoskeletal: Normal Psychiatric: Normal Mood Description: Calm Affect: Normal Speech Pattern: Clear, Appropriate - Laboratory and Diagnostics Result Diagrams: 05/11/19 04:18 05/11/19 04:18 Labs: 05/05/19 15:54 Blood Blood Culture - Final 05/05/19 15:45 Blood Blood Culture - Final 05/05/19 14:30 Sputum - Expectorated Sputum Sputum Culture - Final Pseudomonas Aeruginosa 05/05/19 14:30 Sputum - Expectorated Sputum - Final 05/05/19 20:30 Stool Stool Culture - Final 05/05/19 20:30 Stool - Final Laboratory WBC 7.5 X10^3/uL (3.6-10.0) 05/11/19 04:18 RBC 4.29 X10^6/uL (3.5-5.4) 05/11/19 04:18 Hgb 9.9 g/dL (12.0-16.0) L 05/11/19 04:18 Hct 31.2 % (36.0-47.0) L 05/11/19 04:18 MCV 72.7 fL (80.0-100.0) L 05/11/19 04:18 MCH 23.1 pg (27.0-34.0) L 05/11/19 04:18 MCHC 31.8 g/dL (33.0-35.0) L 05/11/19 04:18 RDW 22.1 % (11.6-16.5) H 05/11/19 04:18 Plt Count 409 X10^3/uL (150.0-450.0) 05/11/19 04:18 Plt Count Comment Adequate (ADEQUATE) 05/09/19 04:36 MPV 7.5 fL (7.4-11.0) 05/11/19 04:18 Neut % (Auto) 63.9 % (42.0-75.0) 05/11/19 04:18 Lymph % (Auto) 16.6 % (21.0-51.0) L 05/11/19 04:18 [place] % (Auto) 15.6 % (0.0-13.0) H 05/11/19 04:18 Eos % (Auto) 3.6 % (0.9-2.9) H 05/11/19 04:18 Baso % (Auto) 0.3 % (0.2-1.0) 05/11/19 04:18 Neut # (Auto) 4.8 x10^3/uL (2.2-4.8) 05/11/19 04:18 Lymph # (Auto) 1.2 X10^3/uL (1.3-2.9) L 05/11/19 04:18 [place] # (Auto) 1.2 x10^3/uL (0.3-0.8) H 05/11/19 04:18 Eos # (Auto) 0.3 x10^3/uL (0.0-0.2) H 05/11/19 04:18 Baso # (Auto) 0.0 X10^3/uL (0.0-0.1) 05/11/19 04:18 Absolute Nucleated RBC 0.1 /100WBC 05/11/19 04:18 Total Counted 100 05/09/19 04:36 Neutrophils % (Manual) 86 % (39-76) H 05/09/19 04:36 Lymphocytes % (Manual) 8 % (13-43) L 05/09/19 04:36 Monocytes % (Manual) 6 % (4-9) 05/09/19 04:36 Plt Morphology Comment Normal (NORMAL) 05/09/19 04:36 RBC Morphology Abnormal (NORMAL) A 05/09/19 04:36 Hypochromasia Slight A 05/09/19 04:36 Anisocytosis 1+ A 05/09/19 04:36 Microcytosis Slight A 05/07/19 06:20 Macrocytosis 1+ A 05/09/19 04:36 D-Dimer 1060 ng/mL (0-400) H* 05/06/19 06:00 Sodium 138 mmol/L (136-145) 05/11/19 04:18 Corrected Sodium TNP 05/11/19 04:18 Potassium 3.6 mmol/L (3.5-5.1) 05/11/19 04:18 Chloride 103 mmol/L (98-107) 05/11/19 04:18 Carbon Dioxide 28.1 mmol/L (21-32) 05/11/19 04:18 BUN 7 mg/dL (7-18) 05/11/19 04:18 Creatinine 0.55 mg/dL (0.55-1.02) 05/11/19 04:18 Est GFR (MDRD) Af Amer > 60 (>60) 05/11/19 04:18 Est GFR (MDRD) Non-Af > 60 (>60) 05/11/19 04:18 Glucose 81 mg/dL (65-99) 05/11/19 04:18 POC Glucose (mg/dL) 88 mg/dL (65-99) 05/11/19 11:32 Calcium 6.6 mg/dL (8.5-10.1) L 05/11/19 04:18 Corrected Calcium 8.0 mg/dL (8.5-10.1) L 05/11/19 04:18 Magnesium 2.0 mg/dL (1.7-2.9) 05/10/19 04:38 Total Bilirubin 0.30 mg/dL (0.2-1.0) 05/11/19 04:18 AST 18 Units/L (15-37) 05/11/19 04:18 ALT 24 Units/L (12-78) 05/11/19 04:18 Alkaline Phosphatase 58 Units/L (46-116) 05/11/19 04:18 B-Natriuretic Peptide 289 pg/mL (0-79) H 05/08/19 05:50 Total Protein 5.3 g/dL (6.4-8.2) L 05/11/19 04:18 Albumin 2.3 g/dL (3.4-5.0) L 05/11/19 04:18 Globulin 3.0 g/dL (2.5-4.5) 05/11/19 04:18 Albumin/Globulin Ratio 0.8 Ratio (1.1-2.1) L 05/11/19 04:18 Stool Description 10g. liquid/brown 05/05/19 20:30 Stool Description 10g. liquid/brown 05/05/19 20:30 Stl Occult Blood (IFOB) Negative (NEGATIVE) 05/05/19 20:30 Stool for White Cells Negative (NEGATIVE) 05/05/19 20:30 Stl C. diff Tox B Gene Negative (NEGATIVE) 05/05/19 20:30 Stl C. diff [id number]-BI Negative (NEGATIVE) 05/05/19 20:30 Cryptosporid parvum Ag Negative (NEGATIVE) 05/05/19 20:30 Giardia lamblia Ag Negative (NEGATIVE) 05/05/19 20:30 - Plan (1) Pneumonia Status: Acute Qualifiers: Pneumonia type: due to Pseudomonas Laterality: bilateral Lung location: unspecified part of lung Qualified Code(s): J15.1 - Pneumonia due to Pseudomonas Plan: IV FORTAZ, IV LEVAQUIN, SOLU-MEDROL, RESPIRATORY TX, OBTAIN CHEST CT, CONTINUE TO MONITOR
--- NOTE | 2019-06-21 10:25 | PCM.PROG ---
Progress Note - Progress Note for Day of Date of Exam: 05/10/19 - Subjective Subjective: WAS ADMITTED FOR TREATMENT OF PNEUMONIA. TODAY, SHE IS ALERT AND ORIENTED, LYING IN BED ON MORNING ROUNDS. SHE REPORTS PERSISTENT SHORTENSS OF BREATH AND COUGH TODAY. ON EXAMINATION, HEART IS REGULAR IN RATE AND RHYTHM. BILATERAL LUNGS ARE NOTED WITH SCATTERED WHEEZING AND RHONCHI T HROUGHOUT. ABDOMEN IS ROUND, SOFT, AND NON-TENDER WITH NORMAL BOWEL SOUNDS IN ALL QUADRANTS. HER VITALS THIS MORNING ARE: 99.2-81-20-93%-124/69. LABS WERE OBTAINED. ABNORMAL LAB VALUES INCLUDE THE FOLLOWING: HGB 9.6, HCT 30.2, BUN 6, CREATININE 0.53, CALCIUM 6.8, TOTAL PROTEIN 5.4, ALBUMIN 2.3. SPUTUM CULTURE IS POSITIVE FOR GROWTH OF PSEUDOMONAS AERUGINOSA. A CHEST XRAY WAS OBTAINED THIS MORNING AND REVEALED: No significant change from the prior examination. SHE IS CURRENTLY RECEIVING IV LEVAQUIN, IV FORTAZ, SOLU-MEDROL, RESPIRATORY TX, AND SUPPLEMENTAL OXYGEN. WE WILL CONTINUE WITH CURRENT PLAN OF CARE TODAY. OTHERWISE, WE WILL FOLLOW UP WITH AM LABS AND CHEST XRAY AND CONTINUE TO MONITOR. - Past Medical Family Social History Past Med/Fam/Surg Hx: No changes since H&P Allergies: Allergies No Known Drug Allergies Allergy (Verified 05/05/19 14:14) - Review of Systems ROS: No change since H&P - Vital Signs and I&O's Vital Signs: Temperature 97.6 F Pulse Rate [Right Brachial] 91 Pulse Rate [Left Brachial] 95 Pulse Rate 79 Respiratory Rate 20 Blood Pressure [Right Arm] 129/73 Blood Pressure [Left Arm] 120/79 Blood Pressure 144/69 O2 Sat by Pulse Oximetry 97 - Physical Exam Oriented: Normal Eyes: Normal Ear: Normal Nose: Normal Throat: Normal Respiratory: Wheezes, Rhonchi Cardiovascular: Normal : Normal Auscultation: Bowel Sounds: Normal Skin: Normal Musculoskeletal: Normal Psychiatric: Normal Mood Description: Calm Affect: Normal Speech Pattern: Clear, Appropriate - Laboratory and Diagnostics Result Diagrams: 05/11/19 04:18 05/11/19 04:18 Labs: 05/05/19 15:54 Blood Blood Culture - Final 05/05/19 15:45 Blood Blood Culture - Final 05/05/19 14:30 Sputum - Expectorated Sputum Sputum Culture - Final Pseudomonas Aeruginosa 05/05/19 14:30 Sputum - Expectorated Sputum - Final 05/05/19 20:30 Stool Stool Culture - Final 05/05/19 20:30 Stool - Final Laboratory WBC 7.5 X10^3/uL (3.6-10.0) 05/11/19 04:18 RBC 4.29 X10^6/uL (3.5-5.4) 05/11/19 04:18 Hgb 9.9 g/dL (12.0-16.0) L 05/11/19 04:18 Hct 31.2 % (36.0-47.0) L 05/11/19 04:18 MCV 72.7 fL (80.0-100.0) L 05/11/19 04:18 MCH 23.1 pg (27.0-34.0) L 05/11/19 04:18 MCHC 31.8 g/dL (33.0-35.0) L 05/11/19 04:18 RDW 22.1 % (11.6-16.5) H 05/11/19 04:18 Plt Count 409 X10^3/uL (150.0-450.0) 05/11/19 04:18 Plt Count Comment Adequate (ADEQUATE) 05/09/19 04:36 MPV 7.5 fL (7.4-11.0) 05/11/19 04:18 Neut % (Auto) 63.9 % (42.0-75.0) 05/11/19 04:18 Lymph % (Auto) 16.6 % (21.0-51.0) L 05/11/19 04:18 [place] % (Auto) 15.6 % (0.0-13.0) H 05/11/19 04:18 Eos % (Auto) 3.6 % (0.9-2.9) H 05/11/19 04:18 Baso % (Auto) 0.3 % (0.2-1.0) 05/11/19 04:18 Neut # (Auto) 4.8 x10^3/uL (2.2-4.8) 05/11/19 04:18 Lymph # (Auto) 1.2 X10^3/uL (1.3-2.9) L 05/11/19 04:18 [place] # (Auto) 1.2 x10^3/uL (0.3-0.8) H 05/11/19 04:18 Eos # (Auto) 0.3 x10^3/uL (0.0-0.2) H 05/11/19 04:18 Baso # (Auto) 0.0 X10^3/uL (0.0-0.1) 05/11/19 04:18 Absolute Nucleated RBC 0.1 /100WBC 05/11/19 04:18 Total Counted 100 05/09/19 04:36 Neutrophils % (Manual) 86 % (39-76) H 05/09/19 04:36 Lymphocytes % (Manual) 8 % (13-43) L 05/09/19 04:36 Monocytes % (Manual) 6 % (4-9) 05/09/19 04:36 Plt Morphology Comment Normal (NORMAL) 05/09/19 04:36 RBC Morphology Abnormal (NORMAL) A 05/09/19 04:36 Hypochromasia Slight A 05/09/19 04:36 Anisocytosis 1+ A 05/09/19 04:36 Microcytosis Slight A 05/07/19 06:20 Macrocytosis 1+ A 05/09/19 04:36 D-Dimer 1060 ng/mL (0-400) H* 05/06/19 06:00 Sodium 138 mmol/L (136-145) 05/11/19 04:18 Corrected Sodium TNP 05/11/19 04:18 Potassium 3.6 mmol/L (3.5-5.1) 05/11/19 04:18 Chloride 103 mmol/L (98-107) 05/11/19 04:18 Carbon Dioxide 28.1 mmol/L (21-32) 05/11/19 04:18 BUN 7 mg/dL (7-18) 05/11/19 04:18 Creatinine 0.55 mg/dL (0.55-1.02) 05/11/19 04:18 Est GFR (MDRD) Af Amer > 60 (>60) 05/11/19 04:18 Est GFR (MDRD) Non-Af > 60 (>60) 05/11/19 04:18 Glucose 81 mg/dL (65-99) 05/11/19 04:18 POC Glucose (mg/dL) 88 mg/dL (65-99) 05/11/19 11:32 Calcium 6.6 mg/dL (8.5-10.1) L 05/11/19 04:18 Corrected Calcium 8.0 mg/dL (8.5-10.1) L 05/11/19 04:18 Magnesium 2.0 mg/dL (1.7-2.9) 05/10/19 04:38 Total Bilirubin 0.30 mg/dL (0.2-1.0) 05/11/19 04:18 AST 18 Units/L (15-37) 05/11/19 04:18 ALT 24 Units/L (12-78) 05/11/19 04:18 Alkaline Phosphatase 58 Units/L (46-116) 05/11/19 04:18 B-Natriuretic Peptide 289 pg/mL (0-79) H 05/08/19 05:50 Total Protein 5.3 g/dL (6.4-8.2) L 05/11/19 04:18 Albumin 2.3 g/dL (3.4-5.0) L 05/11/19 04:18 Globulin 3.0 g/dL (2.5-4.5) 05/11/19 04:18 Albumin/Globulin Ratio 0.8 Ratio (1.1-2.1) L 05/11/19 04:18 Stool Description 10g. liquid/brown 05/05/19 20:30 Stool Description 10g. liquid/brown 05/05/19 20:30 Stl Occult Blood (IFOB) Negative (NEGATIVE) 05/05/19 20:30 Stool for White Cells Negative (NEGATIVE) 05/05/19 20:30 Stl C. diff Tox B Gene Negative (NEGATIVE) 05/05/19 20:30 Stl C. diff [id number] Negative (NEGATIVE) 05/05/19 20:30 Cryptosporid parvum Ag Negative (NEGATIVE) 05/05/19 20:30 Giardia lamblia Ag Negative (NEGATIVE) 05/05/19 20:30 - Plan (1) Pneumonia Status: Acute Qualifiers: Pneumonia type: due to Pseudomonas Laterality: bilateral Lung location: unspecified part of lung Qualified Code(s): J15.1 - Pneumonia due to Pseudomonas Plan: IV FORTAZ, IV LEVAQUIN, SOLU-MEDROL, RESPIRATORY TX, OBTAIN CHEST CT, CONTINUE TO MONITOR
== END 2019-05-11 15:42 | disposition home health service (06) | DRG 179 ==
LOC: MED/SURG → OBSVTOIN 13:41
PROVIDERS: ADMIT Internal Medicine; ATTEND Internal Medicine
DX: M06.9 Rheumatoid arthritis, unspecified; E55.9 Vitamin D deficiency, unspecified; K59.00 Constipation, unspecified; J15.1 Pneumonia due to Pseudomonas; J44.9 Chronic obstructive pulmonary disease, unspecified; E11.65 Type 2 diabetes mellitus with hyperglycemia; R06.02 Shortness of breath; E03.8 Other specified hypothyroidism; I50.9 Heart failure, unspecified; E78.2 Mixed hyperlipidemia
CPT/HCPCS: 36415; 71010; 71045; 71260; 80053; 82270; 83630; 83735; 83880; 84132; 85025; 85378; 87040; 87045; 87070; 87077; 87186; 87205; 87328; 87329; 87427; 87449; 87493; 87899; 94640; 94669; 94760; 97162; A4222; J7030; J0713; J1650; J1815; J1956; J2920; J3475; J7050; J7620; J7626

== ENCOUNTER 2019-07-07 16:03 | Inpatient (IN) ==
--- NOTE | 2019-07-07 17:36 | DR.DIZZY ---
HPI - Time seen Time seen: 17:30 - PCP Primary Care Physician: MARINA - HPI Comment HPI Comment: Pt is a 78 y/o HF presenting to the ER along with her daughter c/o generalized weakness and dizziness since yesterday. The pt apparently had jack ral episodes of nausea and vomiting yesterday but none today. Pt denies any fever, chills, cough, congestion, or diarrhea. - Complaint Chief Complaint:: PT WENT TO GET HAIR CUT AND WAS GOING SHOPPING WITH FAMILY. AFTER GETTING HAIR CUT PT C/O FEELING WEAK AND DIZZY. WENT TO [place] AND PT STARTED FEELING WORSE, FAMILY CALLED OFFICE AND THEY TOLD FAMILY TO BRING PT HERE. PT ALSO TOLD FAMIY THAT SHE FELT LIKE THROAT WAS GETTING HOARSE. - Nurses Notes Reviewed Nurses Notes Review: Yes - Source History Provided: Patient, Family Member - Mode of Arrival Mode of Arrival: Wheelchair - Timing Onset of Chief Complaint: 07/07/19 - Duration Duration: Since Onset How lon Duration: Days - Location of Weakness Weakness Location: Generalized - Context History of: None Stroke Symptoms: None - Severity Severity: Abnormal activity level - Modifying factors Worsens: Nothing - Associated signs and symptoms Associated Signs and Symptoms: Vertigo, Weak PMH - PMH Past Medical History: Yes Past Medical History: Hypertension, Arthritis, CHF Past Surgical History: Yes Surgical History: Abdominal Surgery, Appendectomy, Cholecystectomy, 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, 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, Other Past Surgical History Comment: BRAIN TUMORS - Family History History of Family Medical Conditions: Yes Family Medical History: Diabetes Mellitus, [place], Coronary Artery Disease, Hypertension - Social History Does patient currently use any type of tobacco product: No Have you used tobacco products in the last 12 months: No Type of Tobacco Use: None Does any household member use tobacco: No Alcohol Use: None Do you use any recreational Drugs:: No Lives With: Spouse, Family Lives Where: Home - infectious screening In the last 2 months have you had wt loss of >10#?: NO Have you had fever, night sweats or hemotysis?: No Have you traveled outside the country in the last 6 months?: No Isolation: Standard ROS - Review of Systems Constitutional: See HPI, Weakness Eyes: No Symptoms Reported ENTM: No Symptoms Reported Respiratoy: No Symptoms Reported Cardiovascular: No Symptoms Reported Gastrointestinal/Abdominal: No Symptoms Reported Genitourinary: No Symptoms Reported Neurological: See HPI, Weakness, Dizziness Musculoskeletal: No Symptoms Reported Integumentary: No Symptoms Reported Hematologic/Lymphatic: No Symptoms Reported Endocrine: No Symptoms Reported Psychiatric: No Symptoms Reported All Other Systems: Reviewed and Negative PE - General Limitations: No Limitations General Appearance: Alert - Head Head Exam: Normal Inspection - Eyes Eye exam: Normal Appearance - ENT ENT Exam: Normal Exam, Normal Oropharynx, Normal External Ear Exam - Neck Neck Exam: Normal Inspection, Full ROM - Chest Chest Inspection: Normal Inspection - Respiratory Respiratory Exam: Normal Lung Sounds Bilat - Cardiovascular Cardiovascular Exam: Regular Rate, Normal Rhythm - Abdominal Exam Abdominal Exam: Normal Inspection, Normal Bowel Sounds, Soft - Rectal Rectal Exam: Deferred - Extremeties Extremities Exam: Normal Inspection, Full ROM - Back Back Exam: Normal Inspection, Full ROM - Neurologic Neurological Exam: Alert, Oriented X3 - Psychiatric Psychiatric Exam: Normal Affect, Normal Mood - Skin Skin Exam: Warm, Dry, Intact, Normal Color - Vital Signs Vitals: Temperature 97.1 F Pulse Rate 89 Respiratory Rate 22 Blood Pressure [Right Arm] 129/73 Blood Pressure 137/89 O2 Sat by Pulse Oximetry 97 Course - Reevaluation 1st: Unchanged 2nd: Unchanged - Education/Counseling Education/Counseling: Patient, Family Educated On: Treatment, Diagnosis ROR - Labs Reviewed Result Diagrams: 07/07/19 17:43 07/07/19 17:43 - Labs Reviewed Laboratory: WBC 6.7 X10^3/uL (3.6-10.0) 07/07/19 17:43 RBC 4.90 X10^6/uL (3.5-5.4) 07/07/19 17:43 Hgb 11.5 g/dL (12.0-16.0) L 07/07/19 17:43 Hct 35.8 % (36.0-47.0) L 07/07/19 17:43 MCV 73.0 fL (80.0-100.0) L 07/07/19 17:43 MCH 23.4 pg (27.0-34.0) L 07/07/19 17:43 MCHC 32.1 g/dL (33.0-35.0) L 07/07/19 17:43 RDW 23.4 % (11.6-16.5) H 07/07/19 17:43 Plt Count 511 X10^3/uL (150.0-450.0) H 07/07/19 17:43 Plt Count Comment Increased (ADEQUATE) A 07/07/19 17:43 MPV 7.0 fL (7.4-11.0) L 07/07/19 17:43 Neut % (Auto) 77.2 % (42.0-75.0) H 07/07/19 17:43 Lymph % (Auto) 14.8 % (21.0-51.0) L 07/07/19 17:43 Gem % (Auto) 5.3 % (0.0-13.0) 07/07/19 17:43 Eos % (Auto) 1.9 % (0.9-2.9) 07/07/19 17:43 Baso % (Auto) 0.8 % (0.2-1.0) 07/07/19 17:43 Neut # (Auto) 5.1 x10^3/uL (2.2-4.8) H 07/07/19 17:43 Lymph # (Auto) 1.0 X10^3/uL (1.3-2.9) L 07/07/19 17:43 Gem # (Auto) 0.4 x10^3/uL (0.3-0.8) 07/07/19 17:43 Eos # (Auto) 0.1 x10^3/uL (0.0-0.2) 07/07/19 17:43 Baso # (Auto) 0.1 X10^3/uL (0.0-0.1) 07/07/19 17:43 Absolute Nucleated RBC 0.1 /100WBC 07/07/19 17:43 Plt Morphology Comment Normal (NORMAL) 07/07/19 17:43 RBC Morphology Abnormal (NORMAL) A 07/07/19 17:43 Hypochromasia 1+ A 07/07/19 17:43 Anisocytosis 2+ A 07/07/19 17:43 Microcytosis Slight A 07/07/19 17:43 Sodium 135 mmol/L (136-145) L 07/07/19 17:43 Corrected Sodium TNP 07/07/19 17:43 Potassium 2.5 mmol/L (3.5-5.1) L* 07/07/19 17:43 Chloride 94 mmol/L (98-107) L 07/07/19 17:43 Carbon Dioxide 35.4 mmol/L (21-32) H 07/07/19 17:43 BUN 10 mg/dL (7-18) 07/07/19 17:43 Creatinine 0.84 mg/dL (0.55-1.02) 07/07/19 17:43 Est GFR (MDRD) Af Amer > 60 (>60) 07/07/19 17:43 Est GFR (MDRD) Non-Af > 60 (>60) 07/07/19 17:43 Glucose 107 mg/dL (65-99) H 07/07/19 17:43 Calcium 10.2 mg/dL (8.5-10.1) H 07/07/19 17:43 Corrected Calcium 10.9 mg/dL (8.5-10.1) H 07/07/19 17:43 Magnesium 1.9 mg/dL (1.7-2.9) 07/07/19 17:43 Total Bilirubin 0.50 mg/dL (0.2-1.0) 07/07/19 17:43 AST 14 Units/L (15-37) L 07/07/19 17:43 ALT 14 Units/L (12-78) 07/07/19 17:43 Alkaline Phosphatase 108 Units/L (46-116) 07/07/19 17:43 Creatine Kinase 18 Units/L (26-192) L 07/07/19 17:43 CK-MB (CK-2) < 1.0 ng/mL (0-4.0) 07/07/19 17:43 CK/CKMB % Calc 5.6 % (<4) 07/07/19 17:43 Troponin I 0.03 ng/mL (0-1.5) 07/07/19 17:43 Total Protein 7.7 g/dL (6.4-8.2) 07/07/19 17:43 Albumin 3.1 g/dL (3.4-5.0) L 07/07/19 17:43 Globulin 4.6 g/dL (2.5-4.5) H 07/07/19 17:43 Albumin/Globulin Ratio 0.7 Ratio (1.1-2.1) L 07/07/19 17:43 Amylase 30 Units/L (25-115) 07/07/19 17:43 Lipase 287 Units/L (73-393) 07/07/19 17:43 Opioid - Opioid Risk Tool Age ( box if 16-45): No History of Preadolescent Sexual Abuse: No Total: 0 Total Score Risk Category: Low Risk - Diagnosis Discharge Problem: Generalized weakness, Dizziness, Hypokalemia - Discharge Plan Disposition: 09 ADMITTED INPATIENT Condition: Stable - Follow ups/Referrals Follow ups/Referrals: Vasyl Mosley [Primary Care Provider] - 3 days - Instructions
[2019-07-07 17:52] LABS: BASOPHILS # (AUTO) 0.1 X10^3/uL (0.0-0.1); BASOPHILS % (AUTO) 0.8 % (0.2-1.0); EOSINOPHILS # (AUTO) 0.1 x10^3/uL (0.0-0.2); EOSINOPHILS % (AUTO) 1.9 % (0.9-2.9); HEMATOCRIT 35.8 % (36.0-47.0); HEMOGLOBIN 11.5 g/dL (12.0-16.0); LYMPHOCYTES % (AUTO) 14.8 % (21.0-51.0); MEAN CORPUSCULAR HEMOGLOBIN 23.4 pg (27.0-34.0); MEAN CORPUSCULAR HGB CONC 32.1 g/dL (33.0-35.0); MONOCYTES # (AUTO) 0.4 x10^3/uL (0.3-0.8); MONOCYTES % (AUTO) 5.3 % (0.0-13.0); NEUTROPHILS # (AUTO) 5.1 x10^3/uL (2.2-4.8); NEUTROPHILS % (AUTO) 77.2 % (42.0-75.0); PLATELET COUNT 511 X10^3/uL (150.0-450.0); RED CELL DISTRIBUTION WIDTH 23.4 % (11.6-16.5); WHITE BLOOD COUNT 6.7 X10^3/uL (3.6-10.0)
[2019-07-07] MEDS ORDERED: D5 1/2 NS 1000 ML 1,000 ML IV SCH (18:00)
[2019-07-07] MEDS ORDERED: NS 1000 ML 1,000 ML ONE (18:10)
[2019-07-07 18:15] LABS: ALANINE AMINOTRANSFERASE 14 Units/L (12-78); ALBUMIN 3.1 g/dL (3.4-5.0); ALKALINE PHOSPHATASE 108 Units/L (46-116); AMYLASE 30 Units/L (25-115); ANISOCYTOSIS 2+; ASPARTATE AMINO TRANSFERASE 14 Units/L (15-37); BLOOD UREA NITROGEN 10 mg/dL (7-18); CALCIUM 10.2 mg/dL (8.5-10.1); CARBON DIOXIDE 35.4 mmol/L (21-32); CHLORIDE 94 mmol/L (98-107); CKMB % 5.6 % (<4); COR CA(FOR HYPOALB) 10.9 mg/dL (8.5-10.1); CREATINE KINASE 18 Units/L (26-192); CREATINE KINASE MB < 1.0 ng/mL (0-4.0); CREATININE 0.84 mg/dL (0.55-1.02); HYPOCHROMASIA 1+; LIPASE 287 Units/L (73-393); MAGNESIUM 1.9 mg/dL (1.7-2.9); MICROCYTOSIS SLIGHT; PLATELET MORPHOLOGY COMMENT NORMAL (NORMAL); SODIUM 135 mmol/L (136-145); TOTAL PROTEIN 7.7 g/dL (6.4-8.2); eGFR NON BLACK RACES > 60 (>60)
[2019-07-07 18:31] LABS: TROPONIN I 0.03 ng/mL (0-1.5)
[2019-07-07] MEDS ORDERED: NS 1000 ML 1,000 ML IV SCH (19:00)
[2019-07-07 20:16] LABS: BILIRUBIN,URINE NEGATIVE (NEGATIVE); BLOOD/HEMOGLOBIN,URINE 2+ (NEGATIVE); GLUCOSE, URINE NEGATIVE (NEGATIVE); KETONES,URINE NEGATIVE (NEGATIVE); LEUKOCYTE ESTERASE ,URINE NEGATIVE (NEGATIVE); NITRITES,URINE NEGATIVE (NEGATIVE); PROTEIN,URINE NEGATIVE (NEGATIVE); UROBILINOGEN,URINE NORMAL (NORMAL)
[2019-07-07 20:20] LABS: APPEARANCE,URINE CLEAR (CLEAR); BACTERIA,URINE TRACE /HPF (NEGATIVE); COLOR,URINE PALE YELLOW (YELLOW); SQUAMOUS EPITHELIAL CELL,UR RARE /HPF (NEGATIVE)
[2019-07-07 21:20] LABS: CKMB % 2.7 % (<4); CREATINE KINASE 37 Units/L (26-192); CREATINE KINASE MB < 1.0 ng/mL (0-4.0); TROPONIN I 0.02 ng/mL (0-1.5)
[2019-07-07 22:41] VITALS: BMI 25.4
[2019-07-08] MEDS ORDERED: KLOR-CON PO PRN (00:07)
[2019-07-08] MEDS ORDERED: KLOR-CON PO ONE (00:18)
[2019-07-08] MEDS: NS + KCL 40 MEQ/L 1,000 ML IV SCH ×2 (00:35→11:34)
[2019-07-08 01:52] LABS: CKMB % 0.8 % (<4); CREATINE KINASE 128 Units/L (26-192); CREATINE KINASE MB < 1.0 ng/mL (0-4.0); TROPONIN I 0.03 ng/mL (0-1.5)
[2019-07-08 03:21] LABS: BASOPHILS # (AUTO) 0.1 X10^3/uL (0.0-0.1); BASOPHILS % (AUTO) 1.8 % (0.2-1.0); EOSINOPHILS # (AUTO) 0.2 x10^3/uL (0.0-0.2); EOSINOPHILS % (AUTO) 3.6 % (0.9-2.9); HEMATOCRIT 30.6 % (36.0-47.0); LYMPHOCYTES # (AUTO) 0.9 X10^3/uL (1.3-2.9); LYMPHOCYTES % (AUTO) 16.3 % (21.0-51.0); MEAN CORPUSCULAR HEMOGLOBIN 23.8 pg (27.0-34.0); MEAN CORPUSCULAR HGB CONC 32.6 g/dL (33.0-35.0); MEAN CORPUSCULAR VOLUME 73.1 fL (80.0-100.0); MEAN PLATELET VOLUME 7.3 fL (7.4-11.0); MONOCYTES # (AUTO) 0.4 x10^3/uL (0.3-0.8); MONOCYTES % (AUTO) 6.5 % (0.0-13.0); NEUTROPHILS # (AUTO) 3.9 x10^3/uL (2.2-4.8); NEUTROPHILS % (AUTO) 71.8 % (42.0-75.0); PLATELET COUNT 413 X10^3/uL (150.0-450.0); RED BLOOD COUNT 4.19 X10^6/uL (3.5-5.4); RED CELL DISTRIBUTION WIDTH 22.7 % (11.6-16.5); WHITE BLOOD COUNT 5.4 X10^3/uL (3.6-10.0)
[2019-07-08 03:25] LABS: ANISOCYTOSIS 2+; HYPOCHROMASIA 1+; PLATELET MORPHOLOGY COMMENT NORMAL (NORMAL)
[2019-07-08 03:36] LABS: ALANINE AMINOTRANSFERASE 11 Units/L (12-78); ALBUMIN 2.4 g/dL (3.4-5.0); ALKALINE PHOSPHATASE 84 Units/L (46-116); ASPARTATE AMINO TRANSFERASE 11 Units/L (15-37); BLOOD UREA NITROGEN 6 mg/dL (7-18); CALCIUM 8.9 mg/dL (8.5-10.1); CARBON DIOXIDE 32.2 mmol/L (21-32); CHLORIDE 101 mmol/L (98-107); COR CA(FOR HYPOALB) 10.2 mg/dL (8.5-10.1); CREATININE 0.66 mg/dL (0.55-1.02); SODIUM 138 mmol/L (136-145); eGFR NON BLACK RACES > 60 (>60)
[2019-07-08 08:26] LABS: CKMB % 7.1 % (<4); CREATINE KINASE 14 Units/L (26-192); CREATINE KINASE MB < 1.0 ng/mL (0-4.0); TROPONIN I 0.03 ng/mL (0-1.5)
--- NOTE | 2019-07-08 08:28 | DR.H&P ---
H&P - History & Physical for Day of: H&P Date: 07/07/19 - Chief Complaint Chief Complaint: WEAKNESS, DIZZINESS - History of Present Illness History of Present Illness: IS A 78 YEAR OLD PATIENT OF OURS WHO PRESENTED TO THE ER WITH COMPLAINTS OF GENERALIZED WEAKNESS AND DIZZINESS. SYMPTOMS STARTED ONE DAY PRIOR AND HAVE PROGRESSIVELY GOTTEN WORSE. SHE REPORTS SEVERAL EPISODES OF NAUSEA AND VOMIITNG. SHE DENIES FEVER, CHILLS, COUGH, CONGESTION, OR DIARRHEA. ON ARRIVAL, VITALS WERE 97.1-89-22-97%-137/89. LABS WERE OBTAINED. ABNORMAL LAB VALUES INCLUDE THE FOLLOWING: HGB 11.5, HCT 35.8, SODIUM 135, POTASSIUM 2.5, CHLORIDE 94, CARBON DIOXIDE 35.4, GLUCOSE 107, AST 14, CREATINE KINASE 18, ALBUMIN 3.1, GLOBULIN 4.6. CARDIAC ENZYMES WITHIN NORMAL LIMITS. URINALYSIS REVEALED: WBC 0-2, RBC 3-5, OCCULT BLOOD 2+. URINE CULTURE IS PENDING. SHE WAS GIVEN POTASSIUM 60MEQ X 1 DOSE. SHE WAS ADMITTED FOR FURTHER EVALUATION AND TREATMENT OF HYPOKALEMIA, GENERALIZED WEAKNESS, AND VERTIGO. WE WILL START HER ON NORMAL SALINE WITH 40MEQ KCL AT 40ML/HR, RESPIRATORY TX, AND WILL REVIEW HER HOME MEDICATIONS. OTHERWISE, WE WILL FOLLOW UP WITH AM LABS AND CONTINUE TO MONITOR. 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 Additional Surgical History: COLOSTOMY/REVERSAL - Family History Family Medical History: Diabetes Mellitus, [place], Coronary Artery Disease, Hypertension - Social History Does patient currently use any type of tobacco product: No Have you used tobacco products in the last 12 months: No Type of Tobacco Use: None Does any household member use tobacco: No Alcohol Use: None Drug Use: None Prescription drug monitoring program results: PDMP was not reviewed - Medications Home Medications: No Known Drug Allergies Allergy (Verified 07/07/19 16:18) CONTINUE taking the following medications furosemide 40 mg PO BID 07/07/19 [History] methotrexate sodium 7.5 mg PO QWEEK 07/07/19 [History] - Review of Systems Constitutional: See HPI, Weakness Eyes: No Symptoms Reported ENT: No Symptoms Reported Respiratory: No Symptoms Reported Cardiovascular: Light Headedness Gastrointestinal: No Symptoms Reported Genitourinary: No Symptoms Reported Musculoskeletal: No Symptoms Reported Skin: No Symptoms Reported Neurological: Weakness - Physical Exam Vital Signs: Temperature 98.0 F Pulse Rate [Brachial] 86 Pulse Rate 89 Respiratory Rate 18 Blood Pressure [Right Arm] 153/91 Blood Pressure 137/89 O2 Sat by Pulse Oximetry 95 Oriented: Normal Eyes: Normal Ear: Normal Nose: Normal Throat: Normal Respiratory: Diminished Throughout Cardiovascular: Normal. negative: S3, S4, Murmur : Normal Auscultation: Bowel Sounds: Normal Palpation: Normal Tenderness: Normal Skin: Normal Musculoskeletal: Normal Psychiatric: Normal Mood Description: Calm Affect: Normal Speech Pattern: Clear - Assessment/Plan (1) Generalized weakness Status: Acute Plan: ADMIT, NORMAL SALINE WITH 40MEQ KCL AT 40ML/HR, RESPIRATORY TX, AND WILL REVIEW HER HOME MEDICATIONS (2) Vertigo Status: Acute (3) Dizziness Status: Acute (4) Hypokalemia Status: Acute Plan: NORMAL SALINE WITH 40MEQ KCL AT 40ML/HR - Allergies Allergies/Adverse Reactions: Allergies Allergy/AdvReac Type Severity Reaction Status Date / Time No Known Drug Allergies Allergy Verified 07/07/19 16:18
[2019-07-08] MEDS: DUONEB 0.5 MG/3 MG (3 mL) NEB SCH ×2 (08:41→21:30)
--- NOTE | 2019-07-08 09:56 | CT ---
HISTORYWEAKNESS,DIZZINESSSTUDYBRAIN W/O [id number] axial images of the brain were obtained from the skull base to the vertex [without] administration of IV contrast. Dose reduction techniques including Automated Exposure Control (AEC) and adjustment of mA and kV were utilized.FINDINGSNo acute intraparenchymal hemorrhage or mass can be identified. No extra-axial fluid collections are seen. No alteration in the attenuation of the brain parenchyma can be identified to suggest acute or subacute ischemic change. The ventricular system is symmetric and nondilated. There is chronic periventricular white matter disease observed and age-appropriate generalized atrophy. Prior changes of craniotomy are noted within the right parietofrontal region consistent with patient's history of brain tumor.IMPRESSION1. No acute intracranial process can be identified.2. 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 Age-appropriate atrophic changes are seen.Electronically signed by: MARÍA EATON (Jul 08, 2019 09:54:59)
[2019-07-08] MEDS ORDERED: TESSALON PERLES PO PRN (09:57)
[2019-07-08] MEDS ORDERED: PATIENT'S HOME MEDICATION (Lubiprostone [Amitiza] 8 MCG) PO PRN (09:57)
[2019-07-08] MEDS: NORCO 10/325 TAB PO PRN (10:28)
[2019-07-08] MEDS: FOLIC ACID TAB 1 MG PO SCH (10:28)
[2019-07-08] MEDS: VSL#3 PO SCH (10:29)
[2019-07-08] MEDS: LOPRESSOR TAB 50 MG PO SCH ×2 (10:30→20:43)
[2019-07-08] MEDS: MAG-OX TAB PO SCH ×2 (10:30→20:43)
[2019-07-08] MEDS: MICRO K EXTEN CAP 10 MEQ PO SCH ×2 (10:30→20:42)
[2019-07-08] MEDS: MAXZIDE 37.5/25 MG PO SCH (10:31)
[2019-07-08] MEDS: LOVENOX INJ 40 MG SYR SC SCH (14:34)
[2019-07-08] MEDS ORDERED: NEURONTIN CAP 300 MG PO SCH (21:00)
[2019-07-09 05:44] LABS: BASOPHILS # (AUTO) 0.1 X10^3/uL (0.0-0.1); BASOPHILS % (AUTO) 2.2 % (0.2-1.0); EOSINOPHILS # (AUTO) 0.2 x10^3/uL (0.0-0.2); EOSINOPHILS % (AUTO) 5.9 % (0.9-2.9); HEMATOCRIT 29.5 % (36.0-47.0); HEMOGLOBIN 9.5 g/dL (12.0-16.0); LYMPHOCYTES # (AUTO) 1.1 X10^3/uL (1.3-2.9); LYMPHOCYTES % (AUTO) 27.8 % (21.0-51.0); MEAN CORPUSCULAR HGB CONC 32.3 g/dL (33.0-35.0); MEAN CORPUSCULAR VOLUME 74.4 fL (80.0-100.0); MEAN PLATELET VOLUME 7.8 fL (7.4-11.0); MONOCYTES # (AUTO) 0.4 x10^3/uL (0.3-0.8); MONOCYTES % (AUTO) 10.5 % (0.0-13.0); NEUTROPHILS # (AUTO) 2.1 x10^3/uL (2.2-4.8); NEUTROPHILS % (AUTO) 53.6 % (42.0-75.0); PLATELET COUNT 388 X10^3/uL (150.0-450.0); RED BLOOD COUNT 3.97 X10^6/uL (3.5-5.4); RED CELL DISTRIBUTION WIDTH 23.2 % (11.6-16.5)
[2019-07-09 05:58] LABS: ALANINE AMINOTRANSFERASE 10 Units/L (12-78); ALBUMIN 2.3 g/dL (3.4-5.0); ALKALINE PHOSPHATASE 84 Units/L (46-116); ASPARTATE AMINO TRANSFERASE 11 Units/L (15-37); BLOOD UREA NITROGEN 10 mg/dL (7-18); CALCIUM 9.5 mg/dL (8.5-10.1); CARBON DIOXIDE 31.1 mmol/L (21-32); CHLORIDE 104 mmol/L (98-107); COR CA(FOR HYPOALB) 10.9 mg/dL (8.5-10.1); CREATININE 0.68 mg/dL (0.55-1.02); SODIUM 139 mmol/L (136-145); TOTAL PROTEIN 5.8 g/dL (6.4-8.2); eGFR NON BLACK RACES > 60 (>60)
[2019-07-09 06:24] LABS: ANISOCYTOSIS 2+; HYPOCHROMASIA SLIGHT; MICROCYTOSIS SLIGHT; PLATELET MORPHOLOGY COMMENT NORMAL (NORMAL)
[2019-07-09] MEDS: NORCO 10/325 TAB PO PRN (08:36)
[2019-07-09] MEDS: VSL#3 PO SCH (08:37)
[2019-07-09] MEDS: MAXZIDE 37.5/25 MG PO SCH (08:38)
[2019-07-09] MEDS: FOLIC ACID TAB 1 MG PO SCH (08:38)
[2019-07-09] MEDS: MAG-OX TAB PO SCH (08:39)
[2019-07-09] MEDS: MICRO K EXTEN CAP 10 MEQ PO SCH (08:39)
[2019-07-09] MEDS: LOVENOX INJ 40 MG SYR SC SCH (08:39)
[2019-07-09] MEDS: LOPRESSOR TAB 50 MG PO SCH (08:39)
[2019-07-09] MEDS: DUONEB 0.5 MG/3 MG (3 mL) NEB SCH (09:54)
[2019-07-09 14:15] VITALS: BP 143/77
== END 2019-07-09 14:00 | disposition home or self-care (01) | DRG 641 ==
LOC: ER 16:09 → MED/SURG 16:09 → OBSVTOIN 19:34 → MED/SURG 21:13
PROVIDERS: ADMIT Internal Medicine; ATTEND Internal Medicine
CPT/HCPCS: 36415; 70450; 80053; 81001; 82150; 82550; 82553; 83690; 83735; 84484; 85025; 87086; 94640; 94760; 96365; 96367; 97161; 97165; 99284; A4222; J1650; J7030; J7620